=== PATIENT | male | born 1950 | race Caucasian/White ===

== ENCOUNTER 2018-02-08 06:12 | Emergency (ER) | payer MEDICARE, OTHER, SELFPAY ==
[2018-02-08 06:38] VITALS: BP 137/73; PULSE 73; RESP 18; TEMP 36.9; O2SAT 97; BMI 28.8
[2018-02-08 06:57] LABS: Bilirubin Urine UA 1+ (NEGATIVE); Glucose Urine UA NEGATIVE (Normal); Ketones Urine UA TRACE (NEGATIVE); Leukocyte Esterase Urine UA 1+ (NEGATIVE); Nitrite Urine UA POSITIVE (Negative); Occult Blood Urine UA 3+ (Negative); Protein Urine UA 2+ (Negative); Specific Gravity Urine UA 1.025 (1.000-1.035); Urobilinogen Urine UA 0.2 E.U./dL (0.2)
[2018-02-08 07:02] LABS: Appearance Urine UA CLOUDY; Color Urine UA Red
[2018-02-08 07:05] LABS: Bacteria Urine Moderate (10-30); Culture Indicated Urine Specimen Cultured; RBC Urine >100/HPF (0-5/HPF); Squamous Epithelial Cell Urine 1-5 /HPF; WBC Urine 30-100/HPF (0-5/HPF)
--- NOTE | 2018-02-08 07:07 | ED.MALEGU ---
HPI - Male Genitourinary General Chief complaint: Urogenital-Male Stated complaint: states he has uti Time Seen by Provider: 02/08/18 07:06 Source: patient Mode of arrival: ambulatory Limitations: no limitations History of Present Illness HPI Narrative: This is a 67-year-old male who comes to the emergency department with complaint of urinary frequency, urgency with small amounts of urine. He has noticed some blood in his urine. He not really having any abdominal or pelvic pain. He is not having any flank pain. He is having a little bit of back pain but he states that is a chronic change. He denies any fevers at this time. He has not had any nausea or vomiting. Has been slightly constipated. He has had similar symptoms in the past and been treated for UTI. He states he did not have persistence and they did not have to change antibiotics. He does not remember the antibiotic that he was given. Related Data Home Medications Medication Instructions Recorded Confirmed aspirin 81 mg PO QDAY #30 tab 12/04/15 atorvastatin [Lipitor] 40 mg PO HS #30 tab 12/04/15 clobetasol-emollient 1 param TOPICAL #30 gm 12/04/15 coQ10 (ubiquinol) 100 mg PO #0 12/04/15 fluocinonide 1 param TOPICAL #15 gm 12/04/15 fluocinonide 1 param TOPICAL #15 gm 12/04/15 latanoprost [Xalatan] 1 drp OU HS #2.5 ml 12/04/15 lisinopril 10 mg PO QDAY #30 tab 12/04/15 metoprolol tartrate 12.5 mg PO BID #0 tab 12/04/15 multivitamin [Multiple Vitamins] 1 tab PO QDAY #0 tab 12/04/15 tamsulosin [Flomax] 0.4 mg PO QDAY #0 cap 12/04/15 Previous Rx's Medication Instructions Recorded cephalexin [Keflex] 500 mg PO QID #28 cap 12/04/15 cephalexin 500 mg PO QID #40 cap 02/08/18 Allergies Allergy/AdvReac Type Severity Reaction Status Date / Time No Known Drug Allergies Allergy Verified 02/08/18 06:41 Review of Systems Review of Systems All systems reviewed & are unremarkable except as noted in HPI and below Constitutional Denies fever(s) (Low-grade fever) Gastrointestinal Gastrointestinal: Denies abdominal pain, Reports constipation, Denies diarrhea, Denies nausea and Denies vomiting Genitourinary Reports hematuria, Denies flank pain, Reports urinary frequency, Denies urinary incontinence and Reports urinary urgency Musculoskeletal Denies back pain PFSH Medical History Coronary artery disease (Acute) Dyslipidemia (Acute) Hypertension (Acute) Surgical History History of back surgery (Acute) Hx of CABG (Acute) Social History Smoking Status: Never smoker Exam Narrative Exam Narrative: GENERAL: Alert and oriented x three, well-nourished, well-appearing male in mild distress. HEENT: Head normocephalic, atraumatic, EOMI, pupils reactive, face symmetric, moist mucous membranes NECK: Supple, full range of motion CARDIOVASCULAR: Regular rate and rhythm without murmurs, rubs or gallops. RESPIRATORY: Breath sounds equal bilaterally, no wheezes rales or rhonchi. ABDOMEN: Soft, nontender. Normoactive bowel sounds all 4 quadrants. No guarding or rebound, rigidity, no mass : No CVA tenderness EXTREMITIES: Normal range of motion, no clubbing or edema. Neurovascularly intact NEUROLOGICAL: Cranial nerves II through XII grossly intact. Moving all extremities SKIN: Warm, dry, no petechiae, no rashes or lesions. Initial Vital Signs Initial Vital Signs: Vital Signs Temperature 98.5 F 02/08/18 06:38 Pulse Rate 73 02/08/18 06:38 Respiratory Rate 18 02/08/18 06:38 Blood Pressure 137/73 02/08/18 06:38 Pulse Oximetry 97 02/08/18 06:38 Course Orders Ordered: Discontinued Medications Cephalexin HCl (Keflex) 500 mg PO NOW ONE Stop: 02/08/18 07:20 Last Admin: 02/08/18 07:31 Dose: 500 mg Phenazopyridine HCl (Pyridium 100mg Prepack) 1 bottle MISC SEEINSTR ONE Stop: 02/08/18 07:20 Last Admin: 02/08/18 07:31 Dose: 1 bottle Vital Signs - 8 hr 02/08/18 06:38 Temperature 98.5 F Pulse Rate 73 Respiratory Rate 18 Blood Pressure 137/73 Pulse Oximetry 97 MDM - Male Genitourinary Lab Data Attestation: I reviewed the patient's lab results. Lab Results 02/08/18 Range/Units 06:30 Urine Color Red Urine Appearance Cloudy Urine pH 5.0 (4.5-8.0) Ur Specific [place] 1.025 (1.000-1.035) Urine Protein 2+ H (Negative) Urine Glucose (UA) Negative (Normal) g/dL Urine Ketones Trace H (NEGATIVE) Urine Occult Blood 3+ H (Negative) Urine Nitrate Positive (Negative) Urine Bilirubin 1+ H (NEGATIVE) Urine Ictotest Negative (Negative) Urine Urobilinogen 0.2 (0.2) E.U./dL Ur Leukocyte Esterase 1+ H (NEGATIVE) Urine RBC >100/hpf (0-5/HPF) Urine WBC 30-100/hpf H (0-5/HPF) Ur Squamous Epith Cells 1-5 /hpf Urine Bacteria Moderate (10-30) H (None) Ur Culture Indicated? Specimen cultured Micro UA Comment Not Reportable MDM Narrative Medical decision making narrative: Patient has clinical symptoms consistent with a urinary tract infection. He has some blood also leukocyte esterase and white blood cells. He is not having any flank pain consistent with kidney stone. Patient states he had similar symptoms in the past. Urine was sent for culture and started on Keflex q.i.d. Discharge Plan Departure Patient Disposition: Home Clinical Impression: UTI (urinary tract infection) Discharge Date/Time: 02/08/18 07:37 Interventions: ED Discharge Assessment Last Done: 02/08/18 07:37 Instructions: DI for Urinary Tract Infection (UTI) Activity Restrictions/Additional Instructions: Follow-up on Saturday if you are not having improvement in your symptoms. return to the ER if you're having persistent fevers, vomiting, increasing or new abdominal or back pain, inability to urinate, or other new or concerning symptoms. Take antibiotics until they are completely gone. Take Pyridium as needed for symptoms/bladder spasm. This medication will turn your urine bright orange. Drink plenty of fluids. Prescriptions: New cephalexin 500 mg capsule 500 mg PO QID Qty: 40 RF: 0 No Action atorvastatin [Lipitor] 40 MG tablet 40 mg PO HS Qty: 30 RF: 0 tamsulosin [Flomax] 0.4 MG capsule,extended release 24hr 0.4 mg PO QDAY Qty: 0 RF: 0 lisinopril 10 MG tablet 10 mg PO QDAY Qty: 30 RF: 0 metoprolol tartrate 25 MG tablet 12.5 mg PO BID Qty: 0 RF: 0 aspirin 81 MG tablet,delayed release (DR/EC) 81 mg PO QDAY Qty: 30 RF: 0 multivitamin [Multiple Vitamins] 1 EACH tablet 1 tab PO QDAY Qty: 0 RF: 0 latanoprost [Xalatan] 0.005 % drops 1 drp OU HS Qty: 2.5 RF: 0 fluocinonide 0.05 % cream 1 param Topical Qty: 15 RF: 0 clobetasol-emollient 0.05 % cream 1 param Topical Qty: 30 RF: 0 fluocinonide 0.05 % cream 1 param Topical Qty: 15 RF: 0 coQ10 (ubiquinol) 100 MG capsule 100 mg PO Qty: 0 RF: 0 cephalexin [Keflex] 500 MG capsule 500 mg PO QID Qty: 28 RF: 0
[2018-02-08 07:19] LABS: Ictotest Urine Negative (Negative)
[2018-02-08] MEDS: cephALEXin 250 MG CAPSULE 500 MG PO (07:31)
[2018-02-08] MEDS: PHENAZOPYRIDINE 100 MG PREPACK 1 BOTTLE MISC (07:31)
[2018-02-08 07:37] VITALS: BP 113/69; PULSE 79; RESP 14; O2SAT 97
== END 2018-02-08 07:37 | disposition home or self-care (01) ==
PROVIDERS: Emergency Medicine; Emergency Provider Emergency Medicine
DX: N39.0 Urinary tract infection, site not specified (principal)
CPT/HCPCS: 51798; 81001; 87086; 99283

== ENCOUNTER → 2019-01-16 06:15 | Outpatient (CLI) | payer MEDICARE, OTHER, SELFPAY ==
--- NOTE | 2019-01-16 08:18 | DI.CT.S_ITS ---
PROCEDURE: CT SINUS SCREEN WO CON INDICATIONS: Anosmia TECHNIQUE: Noncontrast 3.0 mm axial images acquired from the frontal sinuses to the mid-sella, with coronal and sagittal reformats. For radiation dose reduction, the following was used: automated exposure control, adjustment of mA and/or kV according to patient size. COMPARISON: None. FINDINGS: Image quality: Excellent. Maxillary Sinuses: No bony remodeling or destruction. Sinuses are clear. Ethmoid Air Cells: No bony remodeling or destruction. Sinuses are clear. Sphenoid Sinuses: No bony remodeling or destruction. Sinuses are clear. Frontal Sinuses: No bony remodeling or destruction. Sinuses are clear. Ostiomeatal Complexes: Ostiomeatal complexes are patent. No Harley cells. Miscellaneous: Visualized intra-orbital contents are normal. No karen bullosa or paradoxical turbinate curvature. There is mild leftward nasal septal deviation. IMPRESSION: 1. No significant sinusitis. 2. Mild leftward nasal septal deviation. Dictated by: Asael Clemons M.D. on 01/16/2019 at 8:17 Approved by: Asael Clemons M.D. on 01/16/2019 at 8:20
== END ==
PROVIDERS: Visit Provider Otolaryngology
DX: J32.8 Other chronic sinusitis (principal); R43.0 Anosmia; J31.0 Chronic rhinitis; J34.2 Deviated nasal septum; R43.8 Other disturbances of smell and taste; J34.89 Other specified disorders of nose and nasal sinuses
CPT/HCPCS: 70486

== ENCOUNTER 2020-07-17 11:31 | Emergency (ER) | payer MEDICARE, OTHER, SELFPAY ==
[2020-07-17] VITALS (11 sets, daily range): BP systolic 148–183; BP diastolic 74–94; PULSE 55–63; RESP 16–21; TEMP 36.1; O2SAT 94–98; BMI 29.7
--- NOTE | 2020-07-17 11:36 | DI.RAD.S_ITS ---
PROCEDURE: XR CHEST 1V INDICATIONS: chest pain TECHNIQUE: One view of the chest was acquired. COMPARISON: , , CHEST 2 VIEW, 08/28/2012, 9:16. FINDINGS: Surgical changes and devices: Postsurgical changes of CABG with sternotomy. Lungs and pleura: Lungs are clear. No pleural effusions or pneumothorax. Mediastinum: Mediastinal contours appear normal. Heart size is normal. Bones and chest wall: No suspicious bony lesions. Overlying soft tissues appear unremarkable. IMPRESSION: No acute cardiopulmonary abnormality. Dictated by: Hakeem Pearl M.D. on 07/17/2020 at 10:57 Approved by: Hakeem Pearl M.D. on 07/17/2020 at 10:58
[2020-07-17 11:50] LABS: Add Manual Diff / Slide Review NO; Basophils Absolute Auto 0 /uL (0-100); Basophils Percent Auto 0.5 % (0-2); Eosinophils Absolute Auto 100 /uL (0-450); Eosinophils Percent Auto 0.9 % (2-4); Hematocrit 50.3 % (41-53); Lymphocytes Absolute Auto 2500 /uL (1100-4500); Lymphocytes Percent Auto 33.8 % (25-40); Mean Corpuscular HGB Conc 33.9 % (30-36); Mean Corpuscular Hemoglobin 30.7 PG (26-34); Mean Corpuscular Volume 90.5 fL (80-100); Monocytes Absolute Auto 500 /uL (0-900); Neutrophils Absolute Auto 4200 /uL (1500-7000); Neutrophils Percent Auto 57.8 % (50-75); Platelet Count 155 X10^3/uL (150-400); Red Blood Cell Count 5.55 X10^6/uL (4.5-5.9); Red Cell Distribution Width 12.9 % (11.6-14.8); White Blood Cell Count 7.3 X10^3/uL (4.5-11.0)
[2020-07-17 11:59] LABS: INR 1.1 (0.9-1.3); Prothrombin Time 12.4 SECONDS (10.1-12.7)
[2020-07-17 12:01] LABS: PTT Partial Thromboplastin Tim 33 SECONDS (26.4-36.2)
[2020-07-17 12:03] LABS: Alanine Aminotransferase 33 IU/L (<50); Albumin 4.5 g/dL (3.5-5.0); Albumin Globulin Ratio 1.6 (1.0-2.8); Alkaline Phosphatase 63 U/L (38-126); Aspartate Aminotransferase 31 IU/L (17-59); BUN Creatinine Ratio 19.1 (6-22); Bilirubin Total 0.6 mg/dL (0.2-1.3); Blood Urea Nitrogen 18 mg/dL (9-20); Calcium 9.8 mg/dL (8.4-10.2); Carbon Dioxide 25 mmol/L (22-32); Chloride 106 mmol/L (98-107); Creatine Kinase 121 U/L (55-170); Estimated Glomerular Filt Rate > 60.0 mL/min (>60); Globulin 2.8 g/dL (1.7-4.1); Glucose 112 mg/dL (80-110); HEMOLYSIS 16 (0-50); Lipase 96 U/L (23-300); Potassium 4.6 mmol/L (3.4-5.1); Sodium 140 mmol/L (137-145); Total Protein 7.3 g/dL (6.3-8.2)
[2020-07-17 12:15] LABS: Troponin I < 0.012 ng/mL (0.01-0.034)
[2020-07-17 12:18] LABS: CKMB % Relative Index 1.7 % (1.5-5.0); Creatine Kinase MB 2.05 ng/mL (<2.37)
--- NOTE | 2020-07-17 12:18 | ED_ITS ---
HPI - Chest Pain General Chief Complaint: Chest Pain Stated Complaint: chest pain Time Seen by Provider: 07/17/20 11:39 Source: patient Mode of arrival: Ambulatory Limitations: no limitations History of Present Illness HPI narrative: Patient is a 70-year-old male history of coronary artery disease CABG 3 vessel is presenting with ongoing chest discomfort. His he said he has actually had issues for about 2 months. 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 Burrell at [facility] he said he had a sinus arrhythmia and he was started on Imdur. Since then he has continued to have chest discomfort. He notices full walking up hill he gets chest discomfort that radiates down his left arm and into his left shoulder. It does not stop him. He also notices it after he eats and has noticed it today after crossword puzzle. My he currently has no chest discomfort. He denies shortness of breath with exertion. He was able to ride his bike about 10 miles last week without any issues. He is scheduled for heart catheterization 11 days. MD complaint: chest pain Onset (ago): week(s) Duration: intermittent Pain location: left chest Severity: mild Related Data Home Medications Medication Instructions Recorded Confirmed aspirin 81 mg PO QDAY #30 tab 12/04/15 atorvastatin [Lipitor] 40 mg PO HS #30 tab 12/04/15 clobetasol-emollient 1 param TOPICAL #30 gm 12/04/15 coQ10 (ubiquinol) 100 mg PO #0 12/04/15 fluocinonide 1 param TOPICAL #15 gm 12/04/15 fluocinonide 1 param TOPICAL #15 gm 12/04/15 latanoprost [Xalatan] 1 drp OU HS #2.5 ml 12/04/15 lisinopril 10 mg PO QDAY #30 tab 12/04/15 metoprolol tartrate 12.5 mg PO BID #0 tab 12/04/15 multivitamin [Multiple Vitamins] 1 tab PO QDAY #0 tab 12/04/15 tamsulosin [Flomax] 0.4 mg PO QDAY #0 cap 12/04/15 Previous Rx's Medication Instructions Recorded cephalexin [Keflex] 500 mg PO QID #28 cap 12/04/15 cephalexin 500 mg PO QID #40 cap 02/08/18 Allergies Allergy/AdvReac Type Severity Reaction Status Date / Time No Known Drug Allergies Allergy Verified 02/08/18 06:41 Review of Systems Review of Systems Narrative: GENERAL: Denies chills, fatigue, malaise, fever, sweats, travel HEENT: Denies sinus pain, ear pain, sore throat, difficulty swallowing, neck pain RESPIRATORY: Denies dyspnea, cough, wheezing, hemoptysis, sputum. CARDIOVASCULAR: See HPI, denies dizziness lightheadedness GASTROINTESTINAL: Denies nausea, vomiting, abdominal pain, diarrhea, constipation, melena. : Denies dysuria, frequency, incontinence, hematuria, urinary retention, flank pain. MUSCULOSKELETAL: Denies weakness, joint pain, or bony pain SKIN: No rash, no erythema, no pruritus NEUROLOGIC: Denies weakness, dizziness, headache, numbness, change in speech, confusion PSYCHIATRIC: No concerning psychosocial issues. 12 point review of systems is negative except for those stated above and HPI Patient History Medical History Coronary artery disease Dyslipidemia Hypertension Surgical History History of back surgery Hx of CABG Social History Smoking Status: Never smoker Smoking Status: Never smoker alcohol intake frequency: a few times a week Substance Use Type: does not use Exam Initial Vital Signs Initial Vital Signs: Vital Signs Temperature 96.9 F L 07/17/20 11:37 Pulse Rate 61 07/17/20 11:37 Respiratory Rate 16 07/17/20 11:37 Blood Pressure 172/92 H 07/17/20 11:37 Pulse Oximetry 97 07/17/20 11:37 GENERAL: Alert pleasant 70-year-old male and in [no acute] distress. HEENT: Head atraumatic,EOMI, pupils reactive, face symmetric, [moist] mucous membranes CARDIOVASCULAR: Regular rate and rhythm without murmurs, rubs or gallops. RESPIRATORY: Breath sounds equal bilaterally, no wheezes rales or rhonchi. ABDOMEN: Soft, nontender. Normoactive bowel sounds all 4 quadrants. No guarding or rebound. EXTREMITIES: Normal range of motion, no clubbing or edema. Neurovascularly intact NEUROLOGICAL: Alert and oriented x4.Normal gait and speech. SKIN: Warm, dry, no laceration, no petechiae, no rashes or lesions. Course Orders Ordered: ED Orders 07/17/20 11:36 XR chest 1V Stat EKG-12 Lead Stat 07/17/20 11:43 Complete Blood Count AUTO DIFF Stat Comprehensive Metabolic Panel Stat Lipase Stat Partial Thromboplastin Time Stat Prothrombin Time INR Stat Troponin & CK Cardiac Panel Stat 07/17/20 13:45 COVID19 -Nasal swab/Pre-Proc Stat Vital Signs Vital signs: Vital Signs - 8 hr 07/17/20 11:37 07/17/20 11:43 07/17/20 11:44 Temperature 96.9 F L Pulse Rate 61 57 L 58 L Respiratory Rate 16 18 21 Blood Pressure 172/92 H 153/74 H Pulse Oximetry 97 96 96 07/17/20 12:00 07/17/20 12:28 07/17/20 12:29 Temperature Pulse Rate 59 L 63 58 L Respiratory Rate 21 Blood Pressure 183/94 H 155/78 H Pulse Oximetry 98 96 96 07/17/20 12:30 07/17/20 13:00 07/17/20 13:30 Temperature Pulse Rate 60 58 L 57 L Respiratory Rate Blood Pressure 148/86 H 156/90 H Pulse Oximetry 95 95 94 07/17/20 14:00 07/17/20 14:30 Temperature Pulse Rate 55 L 62 Respiratory Rate Blood Pressure 156/91 H 159/84 H Pulse Oximetry 97 96 MDM - Chest Pain Lab Data Attestation: I reviewed the patient's lab results. Result diagrams: 07/17/20 11:43 07/17/20 11:43 Labs: Lab Results 07/17/20 07/17/20 07/17/20 Range/Units 11:43 11:43 11:43 WBC 7.3 (4.5-11.0) X10^3/uL RBC 5.55 (4.5-5.9) X10^6/uL Hgb 17.0 (13.5-17.5) g/dL Hct 50.3 (41-53) % MCV 90.5 (80-100) fL MCH 30.7 (26-34) PG MCHC 33.9 (30-36) % RDW 12.9 (11.6-14.8) % Plt Count 155 (150-400) X10^3/uL Neut % (Auto) 57.8 (50-75) % Lymph % (Auto) 33.8 (25-40) % [place] % (Auto) 7.0 (3-14) % Eos % (Auto) 0.9 L (2-4) % Baso % (Auto) 0.5 (0-2) % Neut # (Auto) 4200 (5664-9730) /uL Lymph # (Auto) 2500 (2763-0453) /uL [place] # (Auto) 500 (0-900) /uL Eos # (Auto) 100 (0-450) /uL Baso # (Auto) 0 (0-100) /uL PT 12.4 (10.1-12.7) SECONDS INR 1.1 (0.9-1.3) APTT 33 (26.4-36.2) SECONDS Sodium 140 (137-145) mmol/L Potassium 4.6 (3.4-5.1) mmol/L Chloride 106 (98-107) mmol/L Carbon Dioxide 25 (22-32) mmol/L BUN 18 (9-20) mg/dL Creatinine 0.94 (0.66-1.25) mg/dL Estimated GFR > 60.0 (>60) mL/min BUN/Creatinine Ratio 19.1 (6-22) Glucose 112 H (80-110) mg/dL Calcium 9.8 (8.4-10.2) mg/dL Total Bilirubin 0.6 (0.2-1.3) mg/dL AST 31 (17-59) IU/L ALT 33 (<50) IU/L Alkaline Phosphatase 63 (38-126) U/L Total Creatine Kinase 121 (55-170) U/L CK-MB (CK-2) 2.05 (<2.37) ng/mL CK-MB (CK-2) Rel Index 1.7 (1.5-5.0) % Troponin I < 0.012 (0.01-0.034) ng/mL Total Protein 7.3 (6.3-8.2) g/dL Albumin 4.5 (3.5-5.0) g/dL Globulin 2.8 (1.7-4.1) g/dL Albumin/Globulin Ratio 1.6 (1.0-2.8) Lipase 96 (23-300) U/L SARS-CoV-2 (PCR) (Negative) 07/17/20 Range/Units 13:45 WBC (4.5-11.0) X10^3/uL RBC (4.5-5.9) X10^6/uL Hgb (13.5-17.5) g/dL Hct (41-53) % MCV (80-100) fL MCH (26-34) PG MCHC (30-36) % RDW (11.6-14.8) % Plt Count (150-400) X10^3/uL Neut % (Auto) (50-75) % Lymph % (Auto) (25-40) % [place] % (Auto) (3-14) % Eos % (Auto) (2-4) % Baso % (Auto) (0-2) % Neut # (Auto) (1615-3217) /uL Lymph # (Auto) (3668-5385) /uL [place] # (Auto) (0-900) /uL Eos # (Auto) (0-450) /uL Baso # (Auto) (0-100) /uL PT (10.1-12.7) SECONDS INR (0.9-1.3) APTT (26.4-36.2) SECONDS Sodium (137-145) mmol/L Potassium (3.4-5.1) mmol/L Chloride (98-107) mmol/L Carbon Dioxide (22-32) mmol/L BUN (9-20) mg/dL Creatinine (0.66-1.25) mg/dL Estimated GFR (>60) mL/min BUN/Creatinine Ratio (6-22) Glucose (80-110) mg/dL Calcium (8.4-10.2) mg/dL Total Bilirubin (0.2-1.3) mg/dL AST (17-59) IU/L ALT (<50) IU/L Alkaline Phosphatase (38-126) U/L Total Creatine Kinase (55-170) U/L CK-MB (CK-2) (<2.37) ng/mL CK-MB (CK-2) Rel Index (1.5-5.0) % Troponin I (0.01-0.034) ng/mL Total Protein (6.3-8.2) g/dL Albumin (3.5-5.0) g/dL Globulin (1.7-4.1) g/dL Albumin/Globulin Ratio (1.0-2.8) Lipase (23-300) U/L SARS-CoV-2 (PCR) Negative (Negative) Imaging Data Chest x-ray: Radiologist's Impression: PROCEDURE: XR CHEST 1V INDICATIONS: chest pain TECHNIQUE: One view of the chest was acquired. COMPARISON: [facility], CHEST 2 VIEW, 08/28/2012, 9:16. FINDINGS: Surgical changes and devices: Postsurgical changes of CABG with sternotomy. Lungs and pleura: Lungs are clear. No pleural effusions or pneumothorax. Mediastinum: Mediastinal contours appear normal. Heart size is normal. Bones and chest wall: No suspicious bony lesions. Overlying soft tissues appear unremarkable. IMPRESSION: No acute cardiopulmonary abnormality. Dictated by: Hakeem Pearl M.D. on 07/17/2020 at 10:57 ECG Data Attestation: I personally reviewed and interpreted this ECG as follows: Prior ECG tracings: not available for review Interpretation: Sinus rhythm with PAC noted no ST changes no T-wave inversions no Q-waves MDM Narrative Medical decision making narrative: Patient is not currently having any chest discomfort. But is obviously having escalating chest pain with exertion and angina like symptoms. Symptoms are also now coming at rest. Patient has remained chest pain-free in the emergency department 1300 Dr. Lowry cardiology at [facility] has been updated patient's symptoms test results agrees that patient's heart catheterization needs to be moved up sooner recommends transferring admitting to hospitalist [id number] Dr[address] Reynolds, hospitalist updated patient's symptoms test results agrees and with transfer and happily accepted Discharge Plan Departure Patient Disposition: [facility] Clinical Impression: Unstable angina pectoris Prescriptions: No Action atorvastatin [Lipitor] 40 MG tablet 40 mg PO HS Qty: 30 RF: 0 tamsulosin [Flomax] 0.4 MG capsule,extended release 24hr 0.4 mg PO QDAY Qty: 0 RF: 0 lisinopril 10 MG tablet 10 mg PO QDAY Qty: 30 RF: 0 metoprolol tartrate 25 MG tablet 12.5 mg PO BID Qty: 0 RF: 0 aspirin 81 MG tablet,delayed release (DR/EC) 81 mg PO QDAY Qty: 30 RF: 0 multivitamin [Multiple Vitamins] 1 EACH tablet 1 tab PO QDAY Qty: 0 RF: 0 latanoprost [Xalatan] 0.005 % drops 1 drp OU HS Qty: 2.5 RF: 0 fluocinonide 0.05 % cream 1 param Topical Qty: 15 RF: 0 clobetasol-emollient 0.05 % cream 1 param Topical Qty: 30 RF: 0 fluocinonide 0.05 % cream 1 param Topical Qty: 15 RF: 0 coQ10 (ubiquinol) 100 MG capsule 100 mg PO Qty: 0 RF: 0 cephalexin [Keflex] 500 MG capsule 500 mg PO QID Qty: 28 RF: 0 cephalexin 500 mg capsule 500 mg PO QID Qty: 40 RF: 0
[2020-07-17 14:17] LABS: COVID19 -Nasal RAPID Negative (Negative)
== END 2020-07-17 15:12 | disposition short-term general hospital (02) ==
PROVIDERS: Emergency Provider Emergency Medicine
DX: I20.0 Unstable angina (principal); I49.1 Atrial premature depolarization; Z86.79 Personal history of other diseases of the circulatory system
CPT/HCPCS: 36415; 71045; 80053; 82550; 82553; 83690; 84484; 85025; 85610; 85730; 87635; 93005; 99284; C9803

== ENCOUNTER 2021-01-18 08:30 | Outpatient (RCR) | payer MEDICARE, OTHER, SELFPAY | END 2021-01-18 10:30 | LOC: CAR 08:30 | PROVIDERS: PCP Physician Assistant Medical; Referring Provider Internal Medicine Cardiovascular Disease; Visit Provider Internal Medicine Cardiovascular Disease | DX: Z95.5 Presence of coronary angioplasty implant and graft (principal) | CPT/HCPCS: 93798 ==

== ENCOUNTER 2021-12-24 01:47 | Emergency (ER) | payer MEDICARE, OTHER, SELFPAY ==
[2021-12-24 01:59] VITALS: BP 143/90; PULSE 74; RESP 18; TEMP 36.8; O2SAT 98; BMI 26.2
--- NOTE | 2021-12-24 02:03 | DI.RAD.S_ITS ---
PROCEDURE: XR ANKLE RT MIN 3V INDICATIONS: R anterior and ankle pain TECHNIQUE: 3 views of the ankle were acquired. COMPARISON: None. FINDINGS: Bones: There is mild widening of the lateral mortise joint with tilting of the talus. No suspicious bony lesions. Small posterior calcaneal enthesophyte. Soft tissues: Mild soft tissue edema is seen surrounding the ankle. Small ossification is seen along the course of the plantar fascia. IMPRESSION: Mild widening of the lateral mortise joint due to talar tilting. No acute osseous fracture. If the symptoms persist, consider cross sectional imaging such as MRI or CT for further assessment. There is no significant discrepancy when compared to the overnight preliminary report. Dictated by: Antonio Eastman M.D. on 12/24/2021 at 7:00 Approved by: Antonio Eastman M.D. on 12/24/2021 at 7:10
--- NOTE | 2021-12-24 02:03 | ED.EXTPRO ---
HPI - Extremity Problem General Chief complaint: Extremity Problem,Nontraumatic Stated complaint: RT. FOOT PAIN Time Seen by Provider: 12/24/21 01:58 Source: patient Mode of arrival: Wheelchair Limitations: no limitations History of Present Illness HPI Narrative: Patient is a 71-year-old male who is here for evaluation of right ankle/foot discomfort. He did state that the symptoms started last evening after dinner. There was not 1 specific injury. He has had symptoms similar to this in the past. He states that it very often occurs when he is hiking or after he is hiking. He is never had a history of gout. No prior surgeries. No other joint pain. Does have swelling. Is very uncomfortable to walk on his ankle. Related Data Home Medications Medication Instructions Recorded Confirmed aspirin 81 mg tablet,delayed 81 mg PO QDAY #30 tabs 12/04/15 release atorvastatin 40 mg tablet (Lipitor) 40 mg PO HS #30 tabs 12/04/15 clobetasol-emollient 0.05 % 1 param topical ##30 12/04/15 topical cream coQ10 (ubiquinol) 100 mg capsule 100 mg PO ##0 12/04/15 fluocinonide 0.05 % topical cream 1 param topical ##15 12/04/15 fluocinonide 0.05 % topical cream 1 param topical ##15 16 latanoprost 0.005 % eye drops 1 drp OU HS #2.5 mL 12/04/15 (Xalatan) lisinopril 10 mg tablet 10 mg PO QDAY #30 tabs 12/04/15 metoprolol tartrate 25 mg tablet 12.5 mg PO BID #0 tabs 12/04/15 multivitamin (Multiple Vitamins 1 tab PO QDAY #0 tabs 12/04/15 tablet) tamsulosin 0.4 mg capsule (Flomax) 0.4 mg PO QDAY #0 caps 12/04/15 Previous Rx's Medication Instructions Recorded cephalexin 500 mg capsule (Keflex) 500 mg PO QID #28 caps 12/04/15 cephalexin 500 mg capsule 500 mg PO QID #40 caps 02/08/18 Allergies Allergy/AdvReac Type Severity Reaction Status Date / Time No Known Drug Allergies Allergy Verified 02/08/18 06:41 Review of Systems Constitutional Constitutional: Denies fever(s) Musculoskeletal Musculoskeletal: Reports system reviewed and no additional complaints, except as documented Integumentary/Breasts Skin/Breast: Reports system reviewed and no additional complaints, except as documented Neurologic Neurologic: Reports system reviewed and no additional complaints, except as documented Hematologic/Lymphatic On Anticoagulants: No Patient History Medical History Coronary artery disease Dyslipidemia Hypertension Surgical History History of back surgery Hx of CABG Social History Smoking Status: Never smoker Smoking Status: Never smoker alcohol intake frequency: a few times a week Substance Use Type: does not use Exam Initial Vital Signs Initial Vital Signs: Vital Signs Temperature 98.2 F 12/24/21 01:59 Pulse Rate 74 12/24/21 01:59 Respiratory Rate 18 12/24/21 01:59 Blood Pressure 143/90 H 12/24/21 01:59 Pulse Oximetry 98 12/24/21 01:59 Oxygen Delivery Method 12/24/21 01:59 Cardio Pulses: dorsalis pedis present on the right Skin General: no rashes or lesions noted Neuro Sensory Exam: no sensory deficits noted Extrem Other: Patient does have swelling specifically along the lateral malleolus. There no redness over the area. Is tender along the anterior portion of the tibiotalar joint and also along the medial and lateral malleoli. Rest of his foot is unremarkable. Calf is unremarkable. Course Orders Ordered: ED Orders 12/24/21 02:03 XR ankle RT min 3V Stat 12/24/21 02:19 Basic Metabolic Panel Stat Complete Blood Count AUTO DIFF Stat Uric Acid Stat Discontinued Medications Hydrocodone Bitart/Acetaminophen (Hydrocodone/Acet 5/325 Tablet) 1 tab PO NOW ONE Stop: 12/24/21 03:04 Last Admin: 12/24/21 03:07 Dose: 1 tab Documented By: AP Hydrocodone Bitart/Acetaminophen (Hydrocodone/Acet 5/325 Prepack) 1 bottle MISC SEEINSTR ONE Stop: 12/24/21 04:29 Vital Signs Vital signs: Vital Signs - 8 hr 12/24/21 01:59 12/24/21 02:31 12/24/21 03:00 Temperature 98.2 F Pulse Rate 74 77 88 Respiratory Rate 18 Blood Pressure 143/90 H 141/88 H Pulse Oximetry 98 99 97 Oxygen Delivery Method Room Air 12/24/21 03:30 12/24/21 04:00 Temperature Pulse Rate 81 80 Respiratory Rate Blood Pressure 131/63 Pulse Oximetry 96 96 Oxygen Delivery Method MDM - Extremity (Nontraumatic) Lab Data Result diagrams: 12/24/21 02:19 12/24/21 02:19 Labs: Lab Results 12/24/21 12/24/21 Range/Units 02:19 02:19 WBC 11.6 H (4.5-11.0) X10^3/uL RBC 4.78 (4.5-5.9) X10^6/uL Hgb 15.0 (13.5-17.5) g/dL Hct 43.6 (41-53) % MCV 91.1 (80-100) fL MCH 31.3 (26-34) PG MCHC 34.4 (30-36) % RDW 12.9 (11.6-14.8) % Plt Count 169 (150-400) X10^3/uL Neut % (Auto) 81.2 H (50-75) % Lymph % (Auto) 9.6 L (25-40) % [place] % (Auto) 8.0 (3-14) % Eos % (Auto) 0.8 L (2-4) % Baso % (Auto) 0.4 (0-2) % Neut # (Auto) 9400 H (9451-1403) /uL Lymph # (Auto) 1100 (2163-9712) /uL [place] # (Auto) 900 (0-900) /uL Eos # (Auto) 100 (0-450) /uL Baso # (Auto) 0 (0-100) /uL Sodium 137 (137-145) mmol/L Potassium 4.4 (3.4-5.1) mmol/L Chloride 99 (98-107) mmol/L Carbon Dioxide 27 (22-32) mmol/L BUN 21 H (9-20) mg/dL Creatinine 0.83 (0.66-1.25) mg/dL Estimated GFR > 60 (>60) mL/min BUN/Creatinine Ratio 25.3 H (6-22) Glucose 150 H (80-110) mg/dL Uric Acid 7.0 (3.5-8.5) mg/dL Calcium 8.8 (8.4-10.2) mg/dL Imaging Data Extremity x-ray #1: My Impression: No fractures, no dislocations MDM Narrative Medical decision making narrative: Patient did not have specific trauma. There is swelling but low suspicion for gout/infection. X-ray show no acute pathology. No fractures. No dislocations. No calf tenderness. Will send home with instructions for symptom treatment. Patient has crutches at home that he can use as needed. He was given return precautions. He expressed understanding and agreement. Discharge Plan Departure Patient Disposition: Home Clinical Impression: Ankle pain, right, Arthritis Instructions: How To Perform RICE (Rest, Ice, Compress, Elevate), DI for Arthritis Activity Restrictions/Additional Instructions: There were no obvious fractures noted on the x-rays so you can walk on your right ankle as tolerated. I recommend that you keep your ankle elevated keep ice over the area. You can use crutches as needed. Contact your primary doctor for follow-up. Return to the emergency department for any new or worsening symptoms. Prescriptions: No Action atorvastatin [Lipitor] 40 MG tablet 40 mg PO HS Qty: 30 tamsulosin [Flomax] 0.4 MG capsule,extended release 24hr 0.4 mg PO QDAY Qty: 0 lisinopril 10 MG tablet 10 mg PO QDAY Qty: 30 metoprolol tartrate 25 MG tablet 12.5 mg PO BID Qty: 0 aspirin 81 MG tablet,delayed release (DR/EC) 81 mg PO QDAY Qty: 30 multivitamin [Multiple Vitamins] 1 EACH tablet 1 tab PO QDAY Qty: 0 latanoprost [Xalatan] 0.005 % drops 1 drp OU HS Qty: 2.5 fluocinonide 0.05 % cream 1 param Topical Qty: 15 clobetasol-emollient 0.05 % cream 1 param Topical Qty: 30 fluocinonide 0.05 % cream 1 param Topical Qty: 15 coQ10 (ubiquinol) 100 MG capsule 100 mg PO Qty: 0 cephalexin [Keflex] 500 MG capsule 500 mg PO QID Qty: 28 0RF cephalexin 500 mg capsule 500 mg PO QID Qty: 40 0RF Referrals: Abby Bocanegra PA-C [Primary Care Provider] -
[2021-12-24 02:31] VITALS: PULSE 77; O2SAT 99
[2021-12-24 02:39] LABS: BUN Creatinine Ratio 25.3 (6-22); Blood Urea Nitrogen 21 mg/dL (9-20); Calcium 8.8 mg/dL (8.4-10.2); Carbon Dioxide 27 mmol/L (22-32); Chloride 99 mmol/L (98-107); Estimated Glomerular Filt Rate > 60 mL/min (>60); Glucose 150 mg/dL (80-110); HEMOLYSIS 26 (0-50); Potassium 4.4 mmol/L (3.4-5.1); Sodium 137 mmol/L (137-145)
[2021-12-24 02:43] LABS: Add Manual Diff / Slide Review NO; Basophils Absolute Auto 0 /uL (0-100); Basophils Percent Auto 0.4 % (0-2); Eosinophils Absolute Auto 100 /uL (0-450); Eosinophils Percent Auto 0.8 % (2-4); Hematocrit 43.6 % (41-53); Lymphocytes Absolute Auto 1100 /uL (1100-4500); Lymphocytes Percent Auto 9.6 % (25-40); Mean Corpuscular HGB Conc 34.4 % (30-36); Mean Corpuscular Hemoglobin 31.3 PG (26-34); Mean Corpuscular Volume 91.1 fL (80-100); Monocytes Absolute Auto 900 /uL (0-900); Neutrophils Absolute Auto 9400 /uL (1500-7000); Neutrophils Percent Auto 81.2 % (50-75); Platelet Count 169 X10^3/uL (150-400); Red Blood Cell Count 4.78 X10^6/uL (4.5-5.9); Red Cell Distribution Width 12.9 % (11.6-14.8); White Blood Cell Count 11.6 X10^3/uL (4.5-11.0)
[2021-12-24 03:00] VITALS: BP 141/88; PULSE 88; O2SAT 97
[2021-12-24] MEDS: HYDROCODONE/ACET 5/325 TABLET 1 TAB PO (03:07)
[2021-12-24 03:30] VITALS: PULSE 81; O2SAT 96
[2021-12-24 04:00] VITALS: BP 131/63; PULSE 80; O2SAT 96
[2021-12-24] MEDS: OXYCODONE/APAP 5/325 PREPACK 1 BOTTLE MISC (04:49)
--- NOTE | 2021-12-24 05:11 | PC.NURSE ---
He stated his ankle pain was better after given vicodin.
== END 2021-12-24 04:50 | disposition home or self-care (01) ==
PROVIDERS: Emergency Provider Emergency Medicine; PCP Physician Assistant Medical
DX: M25.571 Pain in right ankle and joints of right foot (principal); M19.071 Primary osteoarthritis, right ankle and foot
CPT/HCPCS: 36415; 73610; 80048; 84550; 85025; 99283

== ENCOUNTER 2021-12-24 16:36 | Inpatient (IN) | payer MEDICARE, OTHER, SELFPAY ==
[2021-12-24] VITALS (10 sets, daily range): BP systolic 105–128; BP diastolic 59–68; PULSE 69–96; RESP 12–19; TEMP 36.6–37.5; O2SAT 94–98; BMI 26.2; BMI 26.9
--- NOTE | 2021-12-24 17:05 | DI.US.S_ITS ---
PROCEDURE: US PERIPH VENOUS LOW EXTREM RT INDICATIONS: PAIN, EDEMA; 11 DAYS POST HERNIA REPAIR TECHNIQUE: Real-time imaging, as well as color and pulse Doppler interrogation, were performed of the lower extremity deep veins from the inguinal ligament to the popliteal fossa. COMPARISON: None. FINDINGS: The common femoral, femoral and popliteal veins are normally compressible, and free of intraluminal thrombus. Color and pulse Doppler demonstrate normal phasic intraluminal flow. There is normal augmentation response to distal compression maneuver. IMPRESSION: Negative for deep venous thrombosis of the right lower extremity. Dictated by: Kayden Bell M.D. on 12/24/2021 at 18:34 Approved by: Kayden Bell M.D. on 12/24/2021 at 18:35
[2021-12-24 18:26] LABS: Add Manual Diff / Slide Review NO; Basophils Absolute Auto 0 /uL (0-100); Basophils Percent Auto 0.3 % (0-2); Eosinophils Absolute Auto 0 /uL (0-450); Hemoglobin 14.7 g/dL (13.5-17.5); Lymphocytes Absolute Auto 1100 /uL (1100-4500); Lymphocytes Percent Auto 7.1 % (25-40); Mean Corpuscular HGB Conc 34.1 % (30-36); Mean Corpuscular Hemoglobin 31.2 PG (26-34); Mean Corpuscular Volume 91.6 fL (80-100); Monocytes Absolute Auto 1900 /uL (0-900); Monocytes Percent Auto 12.8 % (3-14); Neutrophils Absolute Auto 12100 /uL (1500-7000); Neutrophils Percent Auto 79.8 % (50-75); Platelet Count 163 X10^3/uL (150-400); Red Cell Distribution Width 12.8 % (11.6-14.8); White Blood Cell Count 15.1 X10^3/uL (4.5-11.0)
[2021-12-24 18:38] LABS: BUN Creatinine Ratio 18.7 (6-22); Blood Urea Nitrogen 17 mg/dL (9-20); Calcium 8.9 mg/dL (8.4-10.2); Carbon Dioxide 28 mmol/L (22-32); Chloride 96 mmol/L (98-107); Estimated Glomerular Filt Rate > 60 mL/min (>60); Glucose 123 mg/dL (80-110); HEMOLYSIS < 15 (0-50); Potassium 4.5 mmol/L (3.4-5.1); Sodium 134 mmol/L (137-145)
--- NOTE | 2021-12-24 19:03 | ED.EXTPRO ---
HPI - Extremity Problem General Chief complaint: Extremity Problem,Nontraumatic Stated complaint: DVT R/O per post OP surgeon Time Seen by Provider: 12/24/21 18:56 Source: patient Mode of arrival: Family Vehicle Limitations: no limitations History of Present Illness HPI Narrative: Patient is a 71-year-old male who I evaluated in the emergency department last evening for swelling and pain to his right ankle. He had an x-ray and lab work which were unremarkable. Discharged home with instructions for conservative measures. He returns to the emergency department today because the pain has continued. The swelling has worsened. The skin over the area is now red. No fevers. Related Data Home Medications Medication Instructions Recorded Confirmed aspirin 81 mg tablet,delayed 81 mg PO QDAY #30 tabs 12/04/15 12/24/21 release atorvastatin 40 mg tablet (Lipitor) 40 mg PO HS #30 tabs 12/04/15 12/24/21 clobetasol-emollient 0.05 % 1 param topical PRN Dry Skin ##30 12/04/15 topical cream coQ10 (ubiquinol) 100 mg capsule 100 mg PO BEDTIME ##0 12/04/15 12/24/21 latanoprost 0.005 % eye drops 1 drp OU HS #2.5 mL 12/04/15 12/24/21 (Xalatan) metoprolol tartrate 25 mg tablet 12.5 mg PO BID #0 tabs 12/04/15 12/24/21 tamsulosin 0.4 mg capsule (Flomax) 0.4 mg PO QDAY #0 caps 12/04/15 12/24/21 Allergies Allergy/AdvReac Type Severity Reaction Status Date / Time No Known Drug Allergies Allergy Verified 12/24/21 17:02 Review of Systems Constitutional Constitutional: Denies fever(s) Musculoskeletal Musculoskeletal: Reports system reviewed and no additional complaints, except as documented Integumentary/Breasts Skin/Breast: Reports system reviewed and no additional complaints, except as documented Neurologic Neurologic: Reports system reviewed and no additional complaints, except as documented Hematologic/Lymphatic On Anticoagulants: Yes Patient History Medical History Coronary artery disease Dyslipidemia Hypertension Surgical History History of back surgery Hx of CABG Social History household members: spouse Smoking Status: Never smoker Smoking Status: Never smoker alcohol intake frequency: a few times a week Substance Use Type: does not use Exam Initial Vital Signs Initial Vital Signs: Vital Signs Temperature 98.1 F 12/24/21 16:52 Pulse Rate 69 12/24/21 16:52 Respiratory Rate 19 12/24/21 16:52 Blood Pressure 115/61 12/24/21 16:52 Pulse Oximetry 98 12/24/21 16:52 Oxygen Delivery Method 12/24/21 16:52 Resp Effort & Inspection: normal respiratory effort Cardio Rate: regular rate Pulses: dorsalis pedis present on the right Skin Other: Patient with redness over the lateral and the medial malleolus that extends to the dorsum of the foot and proximal to the ankle. There are no breaks in the skin. No fluctuance. Neuro Sensory Exam: no sensory deficits noted Extrem Other: Patient does have swelling to the right ankle located mostly on the mediolateral aspect. Has difficulty with flexion and extension. Also has tenderness on the distal portion of his tibia/fibula. His right calf muscle and right knee are unremarkable. Course Orders Ordered: ED Orders 12/24/21 17:05 US periph venous low extrem rt Stat 12/24/21 17:54 CHEM7 [Basic Metabolic Panel] Stat Complete Blood Count AUTO DIFF Stat 12/24/21 19:08 ESR [Erythrocyte Sedimentation Rate] Stat 12/24/21 19:09 CRP [C-Reactive Protein Quant] Stat 12/24/21 19:45 Consult to Internal Medicine Stat Consult to Orthopedic Surgery Stat 12/24/21 20:06 Body Fluid Culture Stat Cell Count w Diff Body Fluid Stat 12/24/21 20:31 Blood Culture Stat Aspirin (Aspirin Ec 81 Mg Tablet) 81 mg PO DAILY VICKY Atorvastatin Calcium (Atorvastatin 20 Mg Tablet) 40 mg PO BEDTIME VICKY Clobetasol Propionate (Clobetasol 0.05% Cream 15 Gm) 1 applic TOP BID VICKY Ceftriaxone Sodium 1,000 mg/ (Sodium Chloride) 100 mls @ 200 mls/hr IV Q24H VICKY Lactated Ringer's (Lactated Ringers) 1,000 mls @ 125 mls/hr IV CONT VICKY Vancomycin HCl (Vancomycin) 1,000 mg in 200 mls @ 200 mls/hr IV Q12H VICKY Stop: 12/25/21 09:59 Latanoprost (Latanoprost 0.005% Ophth 2.5 Ml) 1 drops EYE-BOTH BEDTIME [facility] Lisinopril (Lisinopril 10 Mg Tablet) 10 mg PO DAILY [facility] Metoprolol Tartrate (Metoprolol Ir 25 Mg Tablet) 12.5 mg PO BID [facility] Naloxone HCl (Naloxone 0.4 Mg/Ml Vial) 0.2 mg IV Q2MIN PRN PRN Reason: Opiate Reversal Ondansetron HCl (Ondansetron 4 Mg Odt) 4 mg PO Q4HR PRN PRN Reason: Nausea And Vomiting Ondansetron HCl (Ondansetron 4 Mg/2 Ml Inj) 4 mg IV Q4HR PRN PRN Reason: Nausea And Vomiting Oxycodone HCl (Oxycodone Ir 5 Mg Tablet) 5 mg PO Q3HR PRN PRN Reason: Pain, Moderate (4-6) Polyethylene Glycol (Polyethylene Glycol 3350 17 Gm Powd.Pack) 17 gm PO DAILY [facility] Tamsulosin HCl (Tamsulosin 0.4 Mg Capsule) 0.4 mg PO DAILY [facility] Discontinued Medications Acetaminophen (Acetaminophen 325 Mg Tablet) 650 mg PO Q6HR PRN PRN Reason: Fever/Mild Pain (1-3) Acetaminophen (Acetaminophen 325 Mg Tablet) 975 mg PO PACUNOW PRN PRN Reason: Pain, Mild (1-3) Hydromorphone HCl (Hydromorphone 1 Mg Inj) 1 mg IV Q3H PRN PRN Reason: Pain, Moderate (4-6) Last Admin: 12/24/21 20:37 Dose: 1 mg Documented By: RIAN Hydromorphone HCl (Hydromorphone 2 Mg Inj) 0 mg IV Q5MIN PRN PRN Reason: Pain, Severe (7-10) Vancomycin HCl (Vancomycin) 1,000 mg in 200 mls @ 200 mls/hr IV NOW ONE Stop: 12/24/21 20:42 Last Infusion: 12/24/21 22:35 Dose: 0 mls/hr Documented By: Admin: 12/24/21 21:25 Dose: 200 mls/hr Documented By: KAREN Ceftriaxone Sodium 1,000 mg/ (Sodium Chloride) 100 mls @ 200 mls/hr IV NOW ONE Stop: 12/24/21 19:44 Last Infusion: 12/24/21 21:25 Dose: 0 mls/hr Documented By: Admin: 12/24/21 21:09 Dose: 200 mls/hr Documented By: KAREN Lactated Ringer's (Lactated Ringers) 1,000 mls @ 42 mls/hr IV CONT VICKY Last Infusion: 12/24/21 23:07 Dose: 100 mls/hr Documented By: Admin: 12/24/21 20:50 Dose: 42 mls/hr Documented By: ELOY Ceftriaxone Sodium 1,000 mg/ (Sodium Chloride) 100 mls @ 200 mls/hr IV NOW ONE Stop: 12/24/21 21:29 Cefazolin Sodium/Dextrose (Ancef) 100 mls @ 200 mls/hr IV NOW ONE Stop: 12/24/21 23:29 Lidocaine HCl (Lidocaine 1% (Pf)) 2 ml INJ NOW ONE Stop: 12/24/21 19:13 Ondansetron HCl (Ondansetron 4 Mg/2 Ml Inj) 4 mg IV NOW PRN PRN Reason: Nausea And Vomiting Vital Signs Vital signs: Vital Signs - 8 hr 12/24/21 16:52 Temperature 98.1 F Pulse Rate 69 Respiratory Rate 19 Blood Pressure 115/61 Pulse Oximetry 98 Oxygen Delivery Method Room Air MDM - Extremity (Nontraumatic) Lab Data Result diagrams: 12/24/21 17:54 12/24/21 17:54 Labs: Lab Results 12/24/21 12/24/21 12/24/21 Range/Units 17:54 17:54 19:08 WBC 15.1 H (4.5-11.0) X10^3/uL RBC 4.70 (4.5-5.9) X10^6/uL Hgb 14.7 (13.5-17.5) g/dL Hct 43.0 (41-53) % MCV 91.6 (80-100) fL MCH 31.2 (26-34) PG MCHC 34.1 (30-36) % RDW 12.8 (11.6-14.8) % Plt Count 163 (150-400) X10^3/uL Neut % (Auto) 79.8 H (50-75) % Lymph % (Auto) 7.1 L (25-40) % [place] % (Auto) 12.8 (3-14) % Eos % (Auto) 0.0 L (2-4) % Baso % (Auto) 0.3 (0-2) % Neut # (Auto) 50087 H (5497-7933) /uL Lymph # (Auto) 1100 (4485-3205) /uL [place] # (Auto) 1900 H (0-900) /uL Eos # (Auto) 0 (0-450) /uL Baso # (Auto) 0 (0-100) /uL ESR 11 (0-15) MM/HR Sodium 134 L (137-145) mmol/L Potassium 4.5 (3.4-5.1) mmol/L Chloride 96 L (98-107) mmol/L Carbon Dioxide 28 (22-32) mmol/L BUN 17 (9-20) mg/dL Creatinine 0.91 (0.66-1.25) mg/dL Estimated GFR > 60 (>60) mL/min BUN/Creatinine Ratio 18.7 (6-22) Glucose 123 H (80-110) mg/dL Calcium 8.9 (8.4-10.2) mg/dL C-Reactive Protein (<1.0) mg/dL 12/24/21 Range/Units 19:09 WBC (4.5-11.0) X10^3/uL RBC (4.5-5.9) X10^6/uL Hgb (13.5-17.5) g/dL Hct (41-53) % MCV (80-100) fL MCH (26-34) PG MCHC (30-36) % RDW (11.6-14.8) % Plt Count (150-400) X10^3/uL Neut % (Auto) (50-75) % Lymph % (Auto) (25-40) % [place] % (Auto) (3-14) % Eos % (Auto) (2-4) % Baso % (Auto) (0-2) % Neut # (Auto) (8471-2348) /uL Lymph # (Auto) (2874-9120) /uL [place] # (Auto) (0-900) /uL Eos # (Auto) (0-450) /uL Baso # (Auto) (0-100) /uL ESR (0-15) MM/HR Sodium (137-145) mmol/L Potassium (3.4-5.1) mmol/L Chloride (98-107) mmol/L Carbon Dioxide (22-32) mmol/L BUN (9-20) mg/dL Creatinine (0.66-1.25) mg/dL Estimated GFR (>60) mL/min BUN/Creatinine Ratio (6-22) Glucose (80-110) mg/dL Calcium (8.4-10.2) mg/dL C-Reactive Protein 13.9 H (<1.0) mg/dL Imaging Data US - DVT: Radiologist's Impression: [address] [address] Ultrasound Report Signed Patient: Ganesh Beal MR#: [id number] : 1950 Acct:[id number] Age/Sex: 71 / M Date of Service: 12/24/21 Loc: ED Accession Number: [id number] ?? Procedure: US periph venous low extrem rt Ordering Provider: Callie An D.O. PROCEDURE:? US PERIPH VENOUS LOW EXTREM RT ? INDICATIONS:? PAIN, EDEMA; 11 DAYS POST HERNIA REPAIR ? TECHNIQUE:? Real-time imaging, as well as color and pulse Doppler interrogation, were performed of the lower extremity deep veins from the inguinal ligament to the popliteal fossa.? ? COMPARISON:? None. ? FINDINGS:? The common femoral, femoral and popliteal veins are normally compressible, and free of intraluminal thrombus.? Color and pulse Doppler demonstrate normal phasic intraluminal flow.? There is normal augmentation response to distal compression maneuver. ? ? IMPRESSION:? Negative for deep venous thrombosis of the right lower extremity. ? ? ? Dictated by: Kayden Bell M.D. on 12/24/2021 at 18:34 ? ? Approved by: Kayden Bell M.D. on 12/24/2021 at 18:35? MDM Narrative Medical decision making narrative: Patient is afebrile. Lab work today does show a new leukocytosis. Ultrasound negative for DVT. Patient is not tachycardic and is not septic. He does redness and swelling in his right ankle that is new compared to my evaluation last evening. Has at least cellulitis but there is concern about septic joint. Discussed the case with Dr. Miranda on-call for Orthopedics who came to the emergency department and did do a arthrocentesis. Did return what appeared to be purulent material. Culture sensitivity and Gram stain were ordered per her request. Antibiotics administered per her request. Patient will be admitted for surgical treatment. Patient expressed understanding and agreement. Also discussed the case with AMIE Sharif the [facility] hospitalist who will admit the patient after patient's surgical intervention. Discharge Plan Departure Patient Disposition: Admitted as Observation Clinical Impression: Septic joint Admit Date/Time: 12/24/21 19:49 Admit Provider: Katina Sharif
[2021-12-24 19:33] LABS: Erythrocyte Sedimentation Rate 11 MM/HR (0-15)
--- NOTE | 2021-12-24 19:50 | P.HP_ITS ---
History of Present Illness History of Present Illness Date Patient Seen: 12/24/21 Time Patient Seen: 19:30 Date of Onset of Symptoms: 12/23/21 Chief complaint: septic right ankle Narrative: This is a 71-year-old gentleman who has several medical problems. He had a recent or robotic assisted hernia repair. He notes some increased right ankle pain starting yesterday which has progressively worsened. Was seen in the emergency room yesterday and treated with conservative measures. He had an ultrasound which was negative for a DVT. He had x-rays which did not show significant injury to his right ankle. He notes progressive worsening right ankle pain and progressive erythema. He did not have significant fevers at home. He is on Eliquis for atrial fibrillation and is scheduled for a cardiac ablation. He took his Eliquis today this morning and is due for a 2nd dose. He did have a minor trauma yesterday when he was barefoot and had a minor injury to his right foot and ankle. He has had a recent flu vaccine. Patient History Medical History (Updated 12/24/21 @ 19:56 by Leonila Miranda MD) Coronary artery disease Dyslipidemia Hypertension Surgical History History of back surgery Hx of CABG Family & Social History Safety & Behavioral: Feels Safe in Current Yes Environment Been Physically Hurt or No Threatened By a Person Tobacco & Substance use: Smoking Status Never smoker alcohol intake frequency a few times a week Substance Use Type does not use Meds Home Medications and Allergies Home Medications Medication Instructions Recorded Confirmed Type aspirin 81 mg tablet,delayed 81 mg PO QDAY #30 tabs 12/04/15 History release atorvastatin 40 mg tablet (Lipitor) 40 mg PO HS #30 tabs 12/04/15 History cephalexin 500 mg capsule (Keflex) 500 mg PO QID #28 caps 12/04/15 Rx clobetasol-emollient 0.05 % 1 param topical ##30 12/04/15 History topical cream coQ10 (ubiquinol) 100 mg capsule 100 mg PO ##0 12/04/15 History fluocinonide 0.05 % topical cream 1 param topical ##15 12/04/15 History fluocinonide 0.05 % topical cream 1 param topical ##15 12/04/15 History latanoprost 0.005 % eye drops 1 drp OU HS #2.5 mL 12/04/15 History (Xalatan) lisinopril 10 mg tablet 10 mg PO QDAY #30 tabs 12/04/15 History metoprolol tartrate 25 mg tablet 12.5 mg PO BID #0 tabs 12/04/15 History multivitamin (Multiple Vitamins 1 tab PO QDAY #0 tabs 12/04/15 History tablet) tamsulosin 0.4 mg capsule (Flomax) 0.4 mg PO QDAY #0 caps 12/04/15 History cephalexin 500 mg capsule 500 mg PO QID #40 caps 02/08/18 Rx Allergies Allergy/AdvReac Type Severity Reaction Status Date / Time No Known Drug Allergies Allergy Verified 12/24/21 17:02 Review of Systems Review of Systems Narrative: Denies significant fevers or chills at home, notes significant right ankle pain but the is not having any significant pain in his knee or hip, no other known recent fever chills or infection Exam Vital Signs (past 8 hours): - 12/24/21 16:52 Temperature 98.1 F Pulse Rate 69 Respiratory Rate 19 Blood Pressure 115/61 Pulse Oximetry 98 Oxygen Delivery Method Room Air Oxygen Delivery Method Room Air Narrative Exam Narrative: HEENT is benign, he is resting comfortably, he is alert and oriented, cor is regular, no significant murmur, lungs are clear, abdomen soft and benign, right lower extremity shows erythema on the lateral aspect of the right ankle with obvious substantial swelling, he has significant decreased range of motion into his right ankle, it is somewhat fluctuant, his Achilles is intact, there is irritation along the peroneal tendons, skin is intact Objective Labs Result Diagrams: 12/24/21 17:54 12/24/21 17:54 Labs: Laboratory Results - last 24 hr 12/24/21 12/24/21 12/24/21 17:54 17:54 19:08 WBC 15.1 H RBC 4.70 Hgb 14.7 Hct 43.0 MCV 91.6 MCH 31.2 MCHC 34.1 RDW 12.8 Plt Count 163 Neut % (Auto) 79.8 H Lymph % (Auto) 7.1 L [place] % (Auto) 12.8 Eos % (Auto) 0.0 L Baso % (Auto) 0.3 Neut # (Auto) 65128 H Lymph # (Auto) 1100 [place] # (Auto) 1900 H Eos # (Auto) 0 Baso # (Auto) 0 ESR 11 Sodium 134 L Potassium 4.5 Chloride 96 L Carbon Dioxide 28 BUN 17 Creatinine 0.91 Estimated GFR > 60 BUN/Creatinine Ratio 18.7 Glucose 123 H Calcium 8.9 ultrasound is negative for DVT, Right ankle shows calcific densities along the right ankle and some generalized osteoarthritic change Assessment & Plan Assessment and plan (1) Septic joint: Status: Acute (2) Ankle pain, right: Status: Acute Plan His right ankle was prepped in the emergency room. A 22 gauge needle was carefully inserted into the lateral aspect of the ankle and ankle joint region. I aspirated about 3 cc of gross pus. It was sent for stat Gram stain culture and sensitivity and cell count. It showed clear evidence of a gross infection. He is anticoagulated on Eliquis. He did have something to eat around noon her to an apple, I told him to be strict NPO now to not take his Eliquis and I have recommended that we work on him on an emergent basis. The procedure alternjosé miguel whaley risks benefits and complications were discussed in detail. I have recommended a emergent right ankle irrigation and debridement. He needs to be admitted as an inpatient and placed on IV antibiotics pending culture results. He likely will need antibiotics for at least a few weeks depending upon intraoperative findings. Time Spent With Patient Critical Care time: I spent a total of [] minutes of critical care time on this patient's care today; this time is exclusive of procedural time.
--- NOTE | 2021-12-24 20:03 | PM.OP.1 ---
Operative Date/Time/Diagnoses Date of procedure: 12/24/21 Time of procedure: 20:30 Pre-op diagnosis: Septic right ankle Post-op diagnosis: same Procedure & Clinicians Procedure: Right ankle arthroscopy with Irrigation and debridement septic right ankle Same procedure as scheduled: Yes Indications: This is a 71-year-old gentleman with a septic right ankle. He is brought to the operating room on emergent basis for irrigation and debrided procedure alternatives risks benefits and complications were discussed in detail. Surgeon: Leonila Miranda Click Yes if Unassisted: Yes Anesthesia Type: General Operative Notes Findings: Gross pus obviously infected ankle Closure Type: primary Specimen(s): other (Culture and sensitivity, Gram stain) Applied: drain(s) Estimated Blood Loss (mL): 50 Blood products transfused: none Procedure in detail: Patient is brought to the operating room his right lower extremity prepped draped standard sterile fashion. Time-out was performed. He was given IV antibiotics in the emergency room. He underwent induction of a general anesthesia. A high thigh tourniquet was applied and elevated to 250 mmHg. Lateral skin incision was made dissection was carried out through skin and subcutaneous tissues to the level of the ankle capsule. Gross purulence infection was encountered when and needle was inserted through the capsule. A medial and lateral arthroscopic portal was established. There was good visualization of the talo tibial joint. A debridement was performed removing grossly infected synovium as well as marked purulence material. A total of more than 6 L was used for irrigated with normal saline. Deep cultures were sent. A drain was placed. The wound was closed loosely with interrupted 3 -0 nylon. The wound was dressed sterilely with 4x4s Kerlix and a bias cut stockinette. The drain was left in. Patient tolerated the procedure well was transferred recovery room in satisfactory condition. Complications: none Post-operative Condition: stable Disposition: Acute Care Plan for aftercare: Check culture and sensitivity. IV antibiotics and plan to continue antibiotics for multiple weeks for right septic ankle.
[2021-12-24] MEDS: HYDROMORPHONE 1 MG INJ IV (20:37)
[2021-12-24] MEDS: LACTATED RINGERS 1,000 ML 42 ML IV (20:50)
[2021-12-24 20:55] LABS: COVID19 -Nasal RAPID Negative (Negative)
[2021-12-24] MEDS: cefTRIAXone 1,000 MG in SODIUM CHLORIDE 0.9% 100 ML 200 MG IV (21:09)
[2021-12-24] MEDS: VANCOMYCIN 1,000 MG/200 ML PIGGYBACK 200 MG IV (21:25)
--- NOTE | 2021-12-24 21:30 | SUR.OPER ---
Supine on padded OR bed, head on pillow, arms secured on padded arm boards at <90 degrees abduction, legs uncrossed, safety belt at lower torso, tape over blanket over left lower leg. Right leg in control of the Surgeon.
[2021-12-24 22:27] LABS: C-Reactive Protein Quant 13.9 mg/dL (<1.0)
--- NOTE | 2021-12-24 23:08 | SUR.PHASEI ---
2250-vss. wide awake and alert. denies pain or nausea.Tolerated ice chips. rt foot elevated. dressing cdi. csm rtle intact. hemovac rt lateral ankle compressed-nothinng in container=scant blood in tubing. report to floor wind operations manager, Barbara, and care transfered now at bedside. no belongings. voided x 2 scant yellow urine. desires to stand to void.
[2021-12-24] MEDS: LACTATED RINGERS 1,000 ML 125 ML IV (23:52)
[2021-12-24] MEDS: ATORVASTATIN 20 MG TABLET 40 MG PO (23:52)
[2021-12-24] MEDS: CEFAZOLIN 2 GM/100 ML PREMIX 100 ML IV (23:52)
[2021-12-25] VITALS (10 sets, daily range): BP systolic 95–122; BP diastolic 43–73; PULSE 63–89; RESP 12–18; TEMP 36.4–37.3; O2SAT 94–98
[2021-12-25 00:02] LABS: Body Fluid Appearance CLOUDY; Body Fluid Clotted? NO CLOTS PRESENT; Body Fluid Color LIGHT BROWN
[2021-12-25 00:07] LABS: Body Fluid Red Blood Cells 74322 /uL; Body Fluid Tot Nucleated Cells 195354 /uL
[2021-12-25 01:08] LABS: Mononuclear WBC Body Fluid 7 %; Polynuclear WBC Body Fluid 93 %
--- NOTE | 2021-12-25 01:08 | P.HP_ITS ---
History of Present Illness History of Present Illness Date Patient Seen: 12/24/21 Time Patient Seen: 21:02 Chief complaint: septic right ankle Narrative: Ganesh Reardon is a 71-year-old gentleman with a medical history of BPH, coronary artery disease, basal cell carcinoma, CABG x3, atrial fibrillation on Eliquis (scheduled for cardiac ablation in February), recent or robotic assisted hernia repair.? The patient was seen in the automotive software engineer of the hours on 12/24/2021 in the ED for right ankle pain, was treated conservatively and discharged home only to return later in the evening as his right ankle pain starting yesterday has progressively worsened, ultrasound negative for a DVT, x-rays negative for significant injury to right ankle.? He notes progressive worsening right ankle pain and progressive erythema.? He did not have significant fevers at home.?He took his Eliquis today this morning and is due for a 2nd dose.? He did have a minor trauma yesterday when he was barefoot and had a minor injury to his right foot and ankle.? He has had a recent flu vaccine. Patient was seen and evaluated by Dr. Miranda orthopedics in the emergency department and was taken directly from the ED to the OR for septic joint right ankle washout. Patient was evaluated and seen for admit after returning to the floor postop. Patient is resting comfortably in bed in no discomfort at this time vitals are stable temp 98.1?, BP 115/61, HR 69, R 19, O2 saturation 98% on room air. Patient denies chest pain, shortness of breath, headache, changes in vision, abdominal pain, nausea, vomiting, fever, body aches, chills, any pain or distress at this time. Patient's lower right leg ankle and foot are wrapped. Patient's lab work from ED elevated WBC 15.1, with a left shift neutrophils 12,100, mono 1900, mild hyponatremia sodium 134, chloride 96, glucose 123, ESR WNL, CRP 13.9. Patient be admitted for septic joint right ankle. To be managed by Dr. Miranda orthopedics, hospitalist service to manage atrial fibrillation and hypertension. Patient History Medical History (Updated 12/25/21 @ 04:21 by REJI Sood-) BPH (benign prostatic hyperplasia) Coronary artery disease Dyslipidemia Hypertension Surgical History History of back surgery Hx of CABG Family & Social History [facility] History (Updated 12/25/21 @ 04:[facility] Mother Coronary artery disease Father Cancer Social History: household members spouse, raising 3 grandchildren Prior Living Arrangements House Safety & Behavioral: Feels Safe in Current Yes Environment Been Physically Hurt or No Threatened By a Person Tobacco & Substance use: Smoking Status Never smoker alcohol intake frequency a few times a week Substance Use Type does not use Meds Home Medications and Allergies Home Medications Medication Instructions Recorded Confirmed Type aspirin 81 mg tablet,delayed 81 mg PO QDAY #30 tabs 12/04/15 12/24/21 History release atorvastatin 40 mg tablet (Lipitor) 40 mg PO HS #30 tabs 12/04/15 12/24/21 History clobetasol-emollient 0.05 % 1 param topical PRN Dry Skin ##30 12/04/15 History topical cream coQ10 (ubiquinol) 100 mg capsule 100 mg PO BEDTIME ##0 12/04/15 12/24/21 History latanoprost 0.005 % eye drops 1 drp OU HS #2.5 mL 12/04/15 12/24/21 History (Xalatan) metoprolol tartrate 25 mg tablet 12.5 mg PO BID #0 tabs 12/04/15 12/24/21 History tamsulosin 0.4 mg capsule (Flomax) 0.4 mg PO QDAY #0 caps 12/04/15 12/24/21 History Eliquis 5 mg PO BID 12/25/21 12/25/21 History Allergies Allergy/AdvReac Type Severity Reaction Status Date / Time No Known Drug Allergies Allergy Verified 12/24/21 17:02 Review of Systems Review of Systems Narrative: All 12 point systems reviewed with the patient and are negative except otherwise documented. Exam Vital Signs (past 8 hours): - 12/24/21 20:42 12/24/21 20:44 12/24/21 20:44 Temperature Pulse Rate 80 77 Respiratory Rate Blood Pressure 115/63 Pulse Oximetry 95 Oxygen Delivery Method Oxygen Flow Rate 12/24/21 22:18 12/24/21 22:23 12/24/21 22:30 Temperature 98.8 F 99.5 F Pulse Rate 83 96 H 90 Respiratory Rate 17 18 18 Blood Pressure 109/68 106/68 108/59 L Pulse Oximetry 98 96 94 Oxygen Delivery Method Room Air Nasal Cannula Room Air Oxygen Flow Rate 2 12/24/21 22:29 12/24/21 22:45 12/24/21 23:00 Temperature 99.5 F 97.9 F Pulse Rate 86 82 69 Respiratory Rate 16 16 16 Blood Pressure 116/67 106/65 128/64 Pulse Oximetry 96 94 96 Oxygen Delivery Method Room Air Room Air Oxygen Flow Rate 0 Oxygen Delivery Method Room Air Oxygen Flow Rate 0 Narrative Exam Narrative: General: Patient is a well-developed, well-nourished in no distress at this time. HEENT: Normocephalic, atraumatic, extraocular muscles intact, oral pharynx is clear and mucous membranes are moist. Neck is supple and symmetric, trachea is midline, no adenopathy, no thyroid enlargement, nontender, no masses palpated. Negative for JVD Chest: Normal AP diameter and contour without kyphoscoliosis, no nasal flaring, retractions, or tachypneic labored Lungs: Auscultation of all lung ignacio are clear without adventitious sounds, wheezes, rhonchi, or rales. Cardio: S1 & S2 with regular rate and rhythm without murmur, rubs, or gallops, no carotid bruit, no cardiac pulsations present. Abdomen: Soft nontender, negative for organomegaly, or masses. Bowel sounds are present in all 4 quadrants without guarding or rebound, no CVA tenderness. Musculoskeletal: Muscle strength and tone are equal within normal limits, no deformity, crepitus, effusions, cyanosis, clubbing or edema present. Full range of motion intact radial and pedal pulses are normal. Exception right lower leg is postoperatively dressed. Skin: Warm dry and intact without rashes, ulcerations or petechiae. Neuro: Alert and orientated x3, strength is +5/5 in all extremities, sensation to touch intact, no gross deficits noted of cranial nerves. Psych: Patient has a well-kept appearance, appropriate affect, mental status attitude thought context and judgment are appropriate for age. Objective Labs Result Diagrams: 12/24/21 17:54 12/24/21 17:54 Labs: Laboratory Results - last 24 hr 12/24/21 12/24/21 12/24/21 17:54 17:54 19:08 WBC 15.1 H RBC 4.70 Hgb 14.7 Hct 43.0 MCV 91.6 MCH 31.2 MCHC 34.1 RDW 12.8 Plt Count 163 Neut % (Auto) 79.8 H Lymph % (Auto) 7.1 L Parker % (Auto) 12.8 Eos % (Auto) 0.0 L Baso % (Auto) 0.3 Neut # (Auto) 07145 H Lymph # (Auto) 1100 Parker # (Auto) 1900 H Eos # (Auto) 0 Baso # (Auto) 0 ESR 11 Sodium 134 L Potassium 4.5 Chloride 96 L Carbon Dioxide 28 BUN 17 Creatinine 0.91 Estimated GFR > 60 BUN/Creatinine Ratio 18.7 Glucose 123 H Calcium 8.9 C-Reactive Protein Fluid Color Fluid Appearance Fluid RBC Fld Tot Nucleated Cell Body Fluid Clot SARS-CoV-2 (PCR) 12/24/21 12/24/21 12/24/21 19:09 20:00 20:06 WBC RBC Hgb Hct MCV MCH MCHC RDW Plt Count Neut % (Auto) Lymph % (Auto) Parker % (Auto) Eos % (Auto) Baso % (Auto) Neut # (Auto) Lymph # (Auto) Parker # (Auto) Eos # (Auto) Baso # (Auto) ESR Sodium Potassium Chloride Carbon Dioxide BUN Creatinine Estimated GFR BUN/Creatinine Ratio Glucose Calcium C-Reactive Protein 13.9 H Fluid Color Light brown Fluid Appearance Cloudy Fluid RBC 90375 Fld Tot Nucleated Cell [id number] Body Fluid Clot No clots present SARS-CoV-2 (PCR) Negative Assessment & Plan Assessment & Plan narrative: Ganesh Reardon is a 71-year-old gentleman with a medical history of BPH, coronary artery disease, basal cell carcinoma, CABG x3, atrial fibrillation on Eliquis (scheduled for cardiac ablation in February), recent or robotic assisted hernia repair, who requires admit to the hospital for surgical intervention treatment of right ankle septic joint by Dr. Miranda. 1. Septic joint, right ankle, acute, present on admission -managed by Dr. Miranda 2. Chronic atrial fibrillation, chronic, on long-term Eliquis, present on admission -patient has failed cardioversion x2, is scheduled for cardiac ablation 02/26/[address] Beavers -patient placed on telemedicine -continue metoprolol -Eliquis Held due to surgery, Dr. Miranda will restart 3. Hypertension, essential, chronic, present on admission -continue patient's metoprolol 4. Coronary artery disease, chronic, with hyperlipidemia, present on admission -continue Lipitor 5. BPH, chronic, present on admission -continue Flomax Code status:Full Surrogate decision maker: Spouse Lizabeth ROA PCR:Negative DVT/VTE prophylaxis:Held Eliquis, left SCD only Disposition: Patient admitted to the hospitalist medical service, and Orthopedics for surgical intervention, expected length of stay greater than 2 midnights. I have utilized all available immediate resources to obtain, update, or review the patient's current medications. I confirmed that the patient's advanced care plan is present, Code status is documented and/or surrogate decision maker is listed in the patient's medical record. Time Spent With Patient Critical Care time: I spent a total of [] minutes of critical care time on this patient's care today ; this time is exclusive of procedural time.
[2021-12-25] MEDS: OXYCODONE IR 5 MG TABLET PO ×4 (04:54→22:16)
--- NOTE | 2021-12-25 05:16 | PC.NURSE ---
Pt stating pain 5/10 and requesting pain meds. 5mg Oxycodone given. Pt accidently removed IV & new one was placed in R forearm. Pt urinating often and has needed some reminders to call when getting out of bed to urinate. Bed alarm on. IV fluids d/c per written orders. Tolerating PO well.
[2021-12-25 06:18] LABS: Add Manual Diff / Slide Review NO; Basophils Absolute Auto 0 /uL (0-100); Basophils Percent Auto 0.2 % (0-2); Eosinophils Absolute Auto 0 /uL (0-450); Hematocrit 41.4 % (41-53); Hemoglobin 14.4 g/dL (13.5-17.5); Lymphocytes Absolute Auto 700 /uL (1100-4500); Lymphocytes Percent Auto 4.1 % (25-40); Mean Corpuscular HGB Conc 34.8 % (30-36); Mean Corpuscular Hemoglobin 31.6 PG (26-34); Mean Corpuscular Volume 90.8 fL (80-100); Monocytes Absolute Auto 1000 /uL (0-900); Monocytes Percent Auto 5.9 % (3-14); Neutrophils Absolute Auto 15900 /uL (1500-7000); Neutrophils Percent Auto 89.8 % (50-75); Platelet Count 148 X10^3/uL (150-400); Red Blood Cell Count 4.56 X10^6/uL (4.5-5.9); White Blood Cell Count 17.7 X10^3/uL (4.5-11.0)
[2021-12-25 06:39] LABS: BUN Creatinine Ratio 19.3 (6-22); Blood Urea Nitrogen 16 mg/dL (9-20); Carbon Dioxide 29 mmol/L (22-32); Chloride 99 mmol/L (98-107); Estimated Glomerular Filt Rate > 60 mL/min (>60); Glucose 153 mg/dL (80-110); HEMOLYSIS < 15 (0-50); Potassium 4.6 mmol/L (3.4-5.1); Sodium 135 mmol/L (137-145)
[2021-12-25] MEDS: ASPIRIN EC 81 MG TABLET PO (09:11)
[2021-12-25] MEDS: TAMSULOSIN 0.4 MG CAPSULE PO (09:11)
[2021-12-25] MEDS: VANCOMYCIN 1,000 MG/200 ML PIGGYBACK 200 MG IV ×2 (09:12→17:14)
[2021-12-25] MEDS: polyethylene glycoL 3350 17 GM POWD.PACK PO (09:12)
--- NOTE | 2021-12-25 10:21 | PT.IIE ---
Current Diagnoses Pyogenic arthritis, unspecified (12/24/21) Pain in right ankle and joints of right foot (12/24/21) Surgery Performed Operation Date: 12/24/21 20:30 Actual Procedures p Right Ankle Arthroscopy with Irrigation & Debridement (Right) - Leonila Miranda MD Surgical History (Last Reviewed 12/25/21 @ 04:21 by Katina Sharif [facility]) History of back surgery Hx of CABG Medical History (Last Updated 12/25/21 @ 04:21 by Katina Sharif [facility]) BPH (benign prostatic hyperplasia) Coronary artery disease Dyslipidemia Hypertension Physical Therapy Inpatient Evaluation/Re-Eval M1 PT/OT-IP Prior Functional Status Start: 12/25/21 08:47 Freq: NEEDED Status: Active Protocol: Document 12/25/21 10:21 AW (Rec: 12/25/21 10:46 AW [id number]) Medical Review Prior Functional Status Medical History Reviewed Yes Communication WNL Mobility and Gait Pt is active and independent at baseline. 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 He played basketball into his 30's and reports he rolled his ankles several times. Activities of Daily Living and IADL's Independent Prior Functional Level (Other details) Pt had robot-assisted hernia surgery two weeks ago and is scheduled for cardiac ablation procedure in February Social History Household Members spouse Living Arrangements House Number of Floors (Floors) Two Floors Number of Stairs To Enter/Railing? Pt enters through the garage with no stairs. There is a 1/2 bath and a bed on this level where pt intends to stay. 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 He lives with his spouse, Lizabeth, and their three grandchildren ages 15, 17, and 19. M2 PT-IP Current Condition Start: 12/25/21 08:47 Freq: NEEDED Status: Active Protocol: Document 12/25/21 10:21 AW (Rec: 12/25/21 10:46 AW [id number]) Physical Therapy Current Condition Current Condition Evaluation Date 12/25/21 Treatment Diagnosis septic ankle joint s/p I&D; impaired mobility and gait Onset Date 9/10/22 M3 PT-IP Subjective Start: 12/25/21 08:47 Freq: NEEDED Status: Active Protocol: Document 12/25/21 10:21 AW (Rec: 12/25/21 10:46 AW [id number]) Subjective Physical Therapy Visit Type Type Initial Evaluation Visit Start Time 09:50 Visit Stop Time 10:21 Total Visit Minutes 41 Physical Therapy Visit Comments Patient Comments Pt is willng to participate with PT Patient Goals Reduce pain, improve ankle mobility, return to regular activity. M4 PT-IP Mobility and Gait Start: 12/25/21 08:47 Freq: NEEDED Status: Active Protocol: Document 12/25/21 10:21 AW (Rec: 12/25/21 11:01 AW [id number]) PT-Bed Mobility Assessment Supine to Sit Supine to Sit Standby Assistance PT-Transfer Assessment Sit to and From Stand Sit to and from Stand Contact Guard Assistance,Use of Upper Extremities Equipment Transfer Assistive Device Gait Belt,Front Wheeled Walker Orthotic/Prosthetic Devices or Brace: No Transfers Transfer Destination Chair,Toilet Transfer Technique pt ambulated with FWW Transfer Ability Level of Assist Contact Guard Assistance Comments Mobility Comments Pt was lying in bed as PT arrived. He was able to sit up on R side of the bed SBA but complained of 5/10 ankle pain with leg in dependent position . PT educated pt on PWB RLE and pt stated his pain is too much to consider putting weight on his right foot so will attempt NWB. He stood CGA with cues to push off from the bed. With FWW, pt ambulated 20 feet to the chair CGA while NWB RLE. He had a LOB as he approached the chair but was able to steady himself with the walker and reaching for the wall nearby. He sat on the chair and rested . He was able to stand from the chair and walk to the toilet, transferring with heavy use of grab bars and cues to swing RLE forward. He stood from the toilet and returned to the chair with FWW CGA. Pt was left with call light and all needs in reach. He agreed to call for all mobility needs. Gait Assessment Gait Gait Assistance Required: Contact Guard Assist Distance (Feet) 20 Able to Maintain Weight Bearing Status Yes During Gait Assistive Devices Assistive Device Gait Belt,Front Wheeled Walker Orthotic/Prosthetic Devices or Brace: No Gait Deviations General Gait Pattern Antalgic,Step-to Gait Factors Limiting Gait Function Factors Limiting Gait Function Limited Range of Motion,Pain Comments Gait Comments See mobility comments for details. Stair Climbing Assessment Comments Stair Climbing Comments Not assessed. Pt will not need to negotiate stairs at home. PT-Balance Assessment Sitting Balance and Reactions Static Sitting Balance Ability Normal Dynamic Sitting Balance Ability Normal Standing Balance and Reactions Static Standing Balance Ability Good Dynamic Standing Balance Ability Good Device Used FWW Comments Other Balance Tests/Deviations/Treatment Pt able to maintain NWB RLE : with FWW M5 PT-IP Objective Assessments Start: 12/25/21 08:47 Freq: NEEDED Status: Active Protocol: Document 12/25/21 10:21 AW (Rec: 12/25/21 11:01 AW [id number]) Orientation Orientation/Cognition Level of Alertness Alert Orientation Age,Day of Week,Place, Situation Language Function Ability No Deficits Noted Safety Awareness Understands Safety Issues Gross Range of Motion Lower Extremity ROM Assessment Right Impaired Impairments Right ankle in bulky dressing, continues to feel tight and stiff. Strength Upper Extremity Strength Assessment Within Functional Limits Lower Extremity Strength Assessment Right Impaired Ankle NT due to pain Comments Strength Comments LLE grossly 5/5 Sensation Assessment Sensation Gross Sensation WNL Other Assessments Other Other Assessments Pt's right ankle is wrapped and not inspected visually at this encounter but pt does complain of swollen and painful feeling. M6 PT-IP Treatment Start: 12/25/21 08:47 Freq: NEEDED Status: Active Protocol: Document 12/25/21 10:21 AW (Rec: 12/25/21 11:01 AW [id number]) Physical Therapy Treatment Exercises Exercises Ankle Pumps,Heel Slides Education Education Provided Weight Bearing Status,Safety M7 PT-IP Assessment and Plan Start: 12/25/21 08:47 Freq: NEEDED Status: Active Protocol: Document 12/25/21 10:21 AW (Rec: 12/25/21 11:01 AW [id number]) PT Summary Assessment and Plan Potential Rehabilitation Potential Excellent Status of Condition at Evaluation Evolving Summary Impairments Pain,ROM,Strength,Balance, Transfers,Gait Assessment Summary Ganesh is a 71yo man seen for PT evaluation on POD1 following I&D for septic right ankle joint. He is active and independent in all regards at baseline with a solid level of fitness. He has orders for partial weightbearing RLE but feels any weightbearing would be too painful. He is able to maintain NWB RLE during 20+ feet of ambulation with FWW. He has assist at home and plans to stay on the entry writer with no need to mange stairs. He will be safe to discharge home with assist and outpatient PT once medically stable but would benefit from continued acute PT to assess mobility with crutches or knee scooter. Goals Bed Mobility Goal Independent Transfer Goal Independent,Front Wheeled Walker Gait Goal Independent,Front Wheel Walker Gait Distance 75 Other Goals - progress gait and transfers to independent with axillary crutches or knee scooter Days to Meet Goals 3 Frequency of Treatment Frequency Of Treatment Once a Day Treatment Plan Physical Therapy Treatment Plan Bed Mobility Training,Transfer Training,Gait Training, Therapeutic Exercise,Balance Retraining,Post Op Education, Discharge Planning,Hot or Cold Pack Other Recommendations and Next Treatment assess mobility with crutches Focus or possibly knee scooter Weight Bearing Status Weight Bearing Status Partial Weight Bearing Allowed Weight Bearing Amount (enter % PWB RLE (pt prefers to do NWB) or #) (%) Recommendations To Nursing Amount of Assist Needed 1 Person Assist Discharge Recommendations PT Discharge Recommendations Home with Assistance, Outpatient PT Equipment Needed for Home Before FWW if unsafe with crutches Discharge Transportation Needs at Discharge Private Vehicle
--- NOTE | 2021-12-25 11:27 | CM.DANOTE ---
Addendum entered by Lola Ledbetter R.N. 12/25/21 15:16: Continued: Patient apparently has + blood cultures and right ankle culture is +. Finals pending. Patient remains on IV antibiotics. Patient is aware he will need to be in the hospital and potentially will receive IV antibiotics detention at home, discussed home infusion services. Spouse in room visiting. RITESH Original Note: Initial Discharge Assessment Note: Case reviewed, met with patient, introduced self and role. Payer: [employer] Program and Self Pay. 71 year old male admitted yesterday with septic right ankle and underwent I&D with Dr Leonila Miranda. Patient receiving IV antibiotics. Unsure if these will be filter bed placer or not per notes. Patient lives with spouse in [place] and is independent at baseline. He desires to return home once medically stable. Plan: Follow for dc needs. RITESH Discharge Planning/Care Management Advanced directive, confirm from FAMILY Start: 12/24/21 23:14 Freq: Q24H Status: Active Protocol: Document 12/25/21 00:19 AM (Rec: 12/25/21 01:24 AM [id number]) Co-signed By Renetta Miranda RN Advance Directive, confirm on record Time 00:29 Person contacted patient Copy received No CM Discharge Assessment Start: 12/25/21 11:21 Freq: Status: Active Protocol: Document 12/25/21 11:21 (Rec: 12/25/21 11:22 [id number]) Discharge Planning Assessment Assigned Community Program Assistant Ann-Marie Ledbetter RN/LYBUOVP Advance Directives? Yes Advance Directives on File No History Provided By Patient Prior Living Arrangements House Household Members spouse Type of transporation used prior to Drives own vehicle admit Independent with ADL's Yes Is patient alert and oriented? Yes Caregiver for Another No Barriers to Discharge No Discharge Plan Home Referrals Initiated None needed Review Status In Process Next Review Type Continued Stay Review
[2021-12-25 14:47] LABS: Enterococcus species Not Detected (Not Detect); Listeria monocytogenes Not Detected (Not Detect)
[2021-12-25 14:48] LABS: Acinetobacter baumannii Not Detected (Not Detect); Candida albicans Not Detected (Not Detect); Candida glabrata Not Detected (Not Detect); Candida krusei Not Detected (Not Detect); Candida parapsilosis Not Detected (Not Detect); Candida tropicalis Not Detected (Not Detect); E. coli Not Detected (Not Detect); Enterobacter cloacae complex Not Detected (Not Detect); Enterobacteriaceae species Not Detected (Not Detect); Haemophilus influenzae Not Detected (Not Detect); Methicillin-resistant gene Not Detected (Not Detect); Neisseria meningitidis Not Detected (Not Detect); Proteus species Not Detected (Not Detect); Pseudomonas aeruginosa Not Detected (Not Detect); Serratia marcescens Not Detected (Not Detect); Staphylococcus species Detected (Not Detect); Streptococcus agalactiae (Gr B Not Detected (Not Detect); Streptococcus pneumonia Not Detected (Not Detect); Streptococcus pyogenes (Gr A) Not Detected (Not Detect); Streptococcus species Not Detected (Not Detect)
--- NOTE | 2021-12-25 18:45 | P.PN_ITS ---
Subjective Subjective Date Patient Seen: 12/25/21 Interval history: Patient is status post right ankle irrigation septic arthritis. Ankle aspirate and blood culture growing Staph aureus. He reports improvement in the ankle pain. Exam Vital Signs (past 8 hours): - 12/25/21 11:47 12/25/21 16:29 Temperature 99.2 F 98.4 F Pulse Rate 84 66 Respiratory Rate 16 16 Blood Pressure 106/53 L 111/55 L Pulse Oximetry 97 98 Oxygen Flow Rate 0 0 Oxygen Delivery Method Room Air Oxygen Flow Rate 0 Narrative Exam Narrative: General: Alert and pleasant male sitting in bedside chair and in no acute distress Objective Labs Result Diagrams: 12/25/21 05:47 12/25/21 05:47 Labs: Laboratory Results - last 24 hr 12/24/21 12/24/21 12/24/21 19:08 19:09 20:00 WBC RBC Hgb Hct MCV MCH MCHC RDW Plt Count Neut % (Auto) Lymph % (Auto) [place] % (Auto) Eos % (Auto) Baso % (Auto) Neut # (Auto) Lymph # (Auto) [place] # (Auto) Eos # (Auto) Baso # (Auto) ESR 11 Sodium Potassium Chloride Carbon Dioxide BUN Creatinine Estimated GFR BUN/Creatinine Ratio Glucose Calcium C-Reactive Protein 13.9 H Fluid Color Fluid Appearance Fluid RBC Fld Tot Nucleated Cell Fluid Polynuclear WBCs Fluid Mononuclear WBCs Fluid Eosinophils Fluid Other Cells Body Fluid Clot A. baumannii (PCR) Yesi albicans (PCR) C. glabrata (PCR) C. krusei (PCR) C. parapsilosis (PCR) C. tropicalis (PCR) SARS-CoV-2 (PCR) Negative Enterobacteriac sp PCR E. cloacae complex PCR Enterococcus sp PCR E. coli (PCR) H. influenzae (PCR) Klebsiella oxytoca PCR Klebsiella pneumoniae List. monocytogenes PCR N. meningitidis (PCR) Proteus species (PCR) Serratia marcescens PCR Staphylococcus sp PCR Staph aureus (PCR) mecA-Methicil Res Gene Streptococcus sp PCR Group A Strep (PCR) Strep agalactiae (PCR) Strep pneumoniae (PCR) P. aeruginosa (PCR) Gil/B-Vanco Res Genes KPC-Carbap Res Gene PCR 12/24/21 12/24/21 12/25/21 20:06 20:31 05:47 WBC 17.7 H RBC 4.56 Hgb 14.4 Hct 41.4 MCV 90.8 MCH 31.6 MCHC 34.8 RDW 13.0 Plt Count 148 L Neut % (Auto) 89.8 H Lymph % (Auto) 4.1 L [place] % (Auto) 5.9 Eos % (Auto) 0.0 L Baso % (Auto) 0.2 Neut # (Auto) 22116 H Lymph # (Auto) 700 L [place] # (Auto) 1000 H Eos # (Auto) 0 Baso # (Auto) 0 ESR Sodium Potassium Chloride Carbon Dioxide BUN Creatinine Estimated GFR BUN/Creatinine Ratio Glucose Calcium C-Reactive Protein Fluid Color Light brown Fluid Appearance Cloudy Fluid RBC 05706 Fld Tot Nucleated Cell 399458 Fluid Polynuclear WBCs 93 Fluid Mononuclear WBCs 7 Fluid Eosinophils Not Reportable Fluid Other Cells Not Reportable Body Fluid Clot No clots present A. baumannii (PCR) Not detected Yesi albicans (PCR) Not detected C. glabrata (PCR) Not detected C. krusei (PCR) Not detected C. parapsilosis (PCR) Not detected C. tropicalis (PCR) Not detected SARS-CoV-2 (PCR) Enterobacteriac sp PCR Not detected E. cloacae complex PCR Not detected Enterococcus sp PCR Not detected E. coli (PCR) Not detected H. influenzae (PCR) Not detected Klebsiella oxytoca PCR Not detected Klebsiella pneumoniae Not detected List. monocytogenes PCR Not detected N. meningitidis (PCR) Not detected Proteus species (PCR) Not detected Serratia marcescens PCR Not detected Staphylococcus sp PCR Detected H Staph aureus (PCR) Detected H mecA-Methicil Res Gene Not detected Streptococcus sp PCR Not detected Group A Strep (PCR) Not detected Strep agalactiae (PCR) Not detected Strep pneumoniae (PCR) Not detected P. aeruginosa (PCR) Not detected Gil/B-Vanco Res Genes Not Reportable KPC-Carbap Res Gene PCR Not Reportable 12/25/21 05:47 WBC RBC Hgb Hct MCV MCH MCHC RDW Plt Count Neut % (Auto) Lymph % (Auto) [place] % (Auto) Eos % (Auto) Baso % (Auto) Neut # (Auto) Lymph # (Auto) [place] # (Auto) Eos # (Auto) Baso # (Auto) ESR Sodium 135 L Potassium 4.6 Chloride 99 Carbon Dioxide 29 BUN 16 Creatinine 0.83 Estimated GFR > 60 BUN/Creatinine Ratio 19.3 Glucose 153 H Calcium 9.0 C-Reactive Protein Fluid Color Fluid Appearance Fluid RBC Fld Tot Nucleated Cell Fluid Polynuclear WBCs Fluid Mononuclear WBCs Fluid Eosinophils Fluid Other Cells Body Fluid Clot A. baumannii (PCR) Yesi albicans (PCR) C. glabrata (PCR) C. krusei (PCR) C. parapsilosis (PCR) C. tropicalis (PCR) SARS-CoV-2 (PCR) Enterobacteriac sp PCR E. cloacae complex PCR Enterococcus sp PCR E. coli (PCR) H. influenzae (PCR) Klebsiella oxytoca PCR Klebsiella pneumoniae List. monocytogenes PCR N. meningitidis (PCR) Proteus species (PCR) Serratia marcescens PCR Staphylococcus sp PCR Staph aureus (PCR) mecA-Methicil Res Gene Streptococcus sp PCR Group A Strep (PCR) Strep agalactiae (PCR) Strep pneumoniae (PCR) P. aeruginosa (PCR) Gil/B-Vanco Res Genes KPC-Carbap Res Gene PCR PFSH Medical History (Updated 12/25/21 @ 04:21 by NUBIA Sood) BPH (benign prostatic hyperplasia) Coronary artery disease Dyslipidemia Hypertension Surgical History History of back surgery Hx of CABG Family History (Updated 12/25/21 @ 04:21 by NUBIA Sood) Mother Coronary artery disease Father Cancer Social History household members: spouse Smoking Status: Never smoker Assessment & Plan Assessment & Plan narrative: 1. Acute right ankle septic arthritis, present on admission -status post irrigation and debridement on 12/[address] Miranda -ankle aspirate and blood culture growing Staph aureus -continue IV vancomycin pending final sensitivities -PICC line -care management to set up home infusion therapy 2. Chronic atrial fibrillation -Continue apixaban and metoprolol -scheduled for ablation on February 26 it will have to be postponed 3. History of CAD -continue low-dose aspirin and atorvastatin per home routine 4. BPH -continue tamsulosin Time Spent With Patient Critical Care time: I spent a total of [] minutes of critical care time on this patient's care today ; this time is exclusive of procedural time.
--- NOTE | 2021-12-25 20:04 | PM.PNPO.1 ---
Subjective Subjective Date Patient Seen: 12/25/21 Time Patient Seen: 20:05 Interval history: He notes he is doing okay he still has ongoing pain into his right ankle. He did mobilize with physical therapy day today but had some difficulty partial weight-bearing on the right leg. Exam Vital Signs (past 8 hours): - 12/25/21 16:29 Temperature 98.4 F Pulse Rate 66 Respiratory Rate 16 Blood Pressure 111/55 L Pulse Oximetry 98 Oxygen Flow Rate 0 Oxygen Delivery Method Room Air Oxygen Flow Rate 0 Narrative Exam Narrative: Dressings intact, stick creased range of motion in his right ankle, he has adequate capillary refill in his foot, his calf to soft is alert and oriented Objective Labs Result Diagrams: 12/25/21 05:47 12/25/21 05:47 Labs: Laboratory Results - last 24 hr 12/24/21 12/24/21 12/24/21 19:09 20:00 20:06 WBC RBC Hgb Hct MCV MCH MCHC RDW Plt Count Neut % (Auto) Lymph % (Auto) [place] % (Auto) Eos % (Auto) Baso % (Auto) Neut # (Auto) Lymph # (Auto) [place] # (Auto) Eos # (Auto) Baso # (Auto) Sodium Potassium Chloride Carbon Dioxide BUN Creatinine Estimated GFR BUN/Creatinine Ratio Glucose Calcium C-Reactive Protein 13.9 H Fluid Color Light brown Fluid Appearance [place] 75084 Fld Tot Nucleated Cell 218258 Fluid Polynuclear WBCs 93 Fluid Mononuclear WBCs 7 Fluid Eosinophils Not Reportable Fluid Other Cells Not Reportable Body Fluid Clot No clots present A. baumannii (PCR) Yesi albicans (PCR) C. glabrata (PCR) C. krusei (PCR) C. parapsilosis (PCR) C. tropicalis (PCR) SARS-CoV-2 (PCR) Negative Enterobacteriac sp PCR E. cloacae complex PCR Enterococcus sp PCR E. coli (PCR) H. influenzae (PCR) Klebsiella oxytoca PCR Klebsiella pneumoniae List. monocytogenes PCR N. meningitidis (PCR) Proteus species (PCR) Serratia marcescens PCR Staphylococcus sp PCR Staph aureus (PCR) mecA-Methicil Res Gene Streptococcus sp PCR Group A Strep (PCR) Strep agalactiae (PCR) Strep pneumoniae (PCR) P. aeruginosa (PCR) Gil/B-Vanco Res Genes KPC-Carbap Res Gene PCR 12/24/21 12/25/21 12/25/21 20:31 05:47 05:47 WBC 17.7 H RBC 4.56 Hgb 14.4 Hct 41.4 MCV 90.8 MCH 31.6 MCHC 34.8 RDW 13.0 Plt Count 148 L Neut % (Auto) 89.8 H Lymph % (Auto) 4.1 L [place] % (Auto) 5.9 Eos % (Auto) 0.0 L Baso % (Auto) 0.2 Neut # (Auto) 60550 H Lymph # (Auto) 700 L [place] # (Auto) 1000 H Eos # (Auto) 0 Baso # (Auto) 0 Sodium 135 L Potassium 4.6 Chloride 99 Carbon Dioxide 29 BUN 16 Creatinine 0.83 Estimated GFR > 60 BUN/Creatinine Ratio 19.3 Glucose 153 H Calcium 9.0 C-Reactive Protein Fluid Color Fluid Appearance Fluid RBC Fld Tot Nucleated Cell Fluid Polynuclear WBCs Fluid Mononuclear WBCs Fluid Eosinophils Fluid Other Cells Body Fluid Clot A. baumannii (PCR) Not detected Yesi albicans (PCR) Not detected C. glabrata (PCR) Not detected C. krusei (PCR) Not detected C. parapsilosis (PCR) Not detected C. tropicalis (PCR) Not detected SARS-CoV-2 (PCR) Enterobacteriac sp PCR Not detected E. cloacae complex PCR Not detected Enterococcus sp PCR Not detected E. coli (PCR) Not detected H. influenzae (PCR) Not detected Klebsiella oxytoca PCR Not detected Klebsiella pneumoniae Not detected List. monocytogenes PCR Not detected N. meningitidis (PCR) Not detected Proteus species (PCR) Not detected Serratia marcescens PCR Not detected Staphylococcus sp PCR Detected H Staph aureus (PCR) Detected H mecA-Methicil Res Gene Not detected Streptococcus sp PCR Not detected Group A Strep (PCR) Not detected Strep agalactiae (PCR) Not detected Strep pneumoniae (PCR) Not detected P. aeruginosa (PCR) Not detected Gil/B-Vanco Res Genes Not Reportable KPC-Carbap Res Gene PCR Not Reportable PFSH Medical History (Updated 12/25/21 @ 04:21 by NUBIA Sood) BPH (benign prostatic hyperplasia) Coronary artery disease Dyslipidemia Hypertension Surgical History History of back surgery Hx of CABG Family History (Updated 12[facility]25/21 @ 04:21 [facility] Mother Coronary artery disease Father Cancer Social History household members: spouse Smoking Status: Never smoker Assessment & Plan Post-op Postoperative Procedures: Procedures Operation Date: 12/24/21 20:30 Actual Procedure Side Surgeon p Right Ankle Arthroscopy with Irrigation & Debridement Right Leonilabryanna Miranda MD Postoperative day: 1 Postoperative status: doing well Postoperative status narrative: He is doing reasonably well. His cultures are growing Gram-positive cocci which is likely a staph aureus. Sensitivities are pending. He still has an elevated white count. Postoperative plan narrative: Continue IV antibiotics. Continue to work with physical therapy. I spoke to Infectious Disease doctor Marco who felt he may need at least 3 weeks of IV antibiotics. We will checked the sensitivities of his cultures. I anticipate he will likely need a PICC line and continuing outpatient IV antibiotics. I would like him to follow-up with me at [facility] orthopedic at discharge and also with Dr. Lara at [facility] Infectious Disease. Time Spent With Patient Time with patient: less than 15 minutes
[2021-12-25] MEDS: METOPROLOL IR 25 MG TABLET 12.5 MG PO (20:21)
[2021-12-25] MEDS: APIXABAN 5 MG TABLET PO (20:22)
[2021-12-25] MEDS: ATORVASTATIN 20 MG TABLET 40 MG PO (20:22)
[2021-12-26 01:00] VITALS: BP 126/73; PULSE 83; RESP 18; TEMP 37.2; O2SAT 95
[2021-12-26] MEDS: VANCOMYCIN 1,000 MG/200 ML PIGGYBACK 200 MG IV (01:13)
[2021-12-26] MEDS: OXYCODONE IR 5 MG TABLET PO ×5 (01:13→22:51)
[2021-12-26 06:05] LABS: Add Manual Diff / Slide Review NO; Basophils Absolute Auto 0 /uL (0-100); Basophils Percent Auto 0.3 % (0-2); Eosinophils Absolute Auto 0 /uL (0-450); Hematocrit 38.8 % (41-53); Hemoglobin 13.5 g/dL (13.5-17.5); Lymphocytes Absolute Auto 1400 /uL (1100-4500); Lymphocytes Percent Auto 10.2 % (25-40); Mean Corpuscular HGB Conc 34.8 % (30-36); Mean Corpuscular Hemoglobin 31.6 PG (26-34); Mean Corpuscular Volume 90.9 fL (80-100); Monocytes Absolute Auto 1200 /uL (0-900); Monocytes Percent Auto 8.7 % (3-14); Neutrophils Absolute Auto 11000 /uL (1500-7000); Neutrophils Percent Auto 80.8 % (50-75); Platelet Count 146 X10^3/uL (150-400); Red Blood Cell Count 4.27 X10^6/uL (4.5-5.9); Red Cell Distribution Width 12.7 % (11.6-14.8); White Blood Cell Count 13.7 X10^3/uL (4.5-11.0)
[2021-12-26 06:07] LABS: BUN Creatinine Ratio 20.9 (6-22); Blood Urea Nitrogen 19 mg/dL (9-20); Calcium 8.5 mg/dL (8.4-10.2); Carbon Dioxide 27 mmol/L (22-32); Chloride 98 mmol/L (98-107); Estimated Glomerular Filt Rate > 60 mL/min (>60); Glucose 113 mg/dL (80-110); HEMOLYSIS < 15 (0-50); Potassium 4.3 mmol/L (3.4-5.1); Sodium 135 mmol/L (137-145)
--- NOTE | 2021-12-26 08:09 | P.PN_ITS ---
Subjective Subjective Date Patient Seen: 12/26/21 Time Patient Seen: 08:09 Interval history: Patient is doing well this morning. He denies any fevers, chills, night sweats. His right ankle pain is moderate but well controlled with oxycodone. He denies numbness or tingling, but notes the bandage is making him uncomfortable. Exam Vital Signs (past 8 hours): - 12/26/21 01:00 Temperature 99.0 F Pulse Rate 83 Respiratory Rate 18 Blood Pressure 126/73 Pulse Oximetry 95 Oxygen Flow Rate 0 Oxygen Delivery Method Room Air Oxygen Flow Rate 0 Narrative Exam Narrative: Pleasant 71-year-old male, resting comfortably in bed, no acute distress. Dressings are saturated, Hemovac appears to be nonfunctional. Hemovac was removed today and new dressings were applied. He is able to wiggle his toes, EHL is 5/5 sensation is mildly decreased in the 1st distal webspace, bilateral calves are soft and nontender to palpation. Objective Labs Result Diagrams: 12/26/21 05:08 12/26/21 05:08 Labs: Laboratory Results - last 24 hr 12/24/21 12/26/21 12/26/21 20:31 05:08 05:08 WBC 13.7 H RBC 4.27 L Hgb 13.5 Hct 38.8 L MCV 90.9 MCH 31.6 MCHC 34.8 RDW 12.7 Plt Count 146 L Neut % (Auto) 80.8 H Lymph % (Auto) 10.2 L [place] % (Auto) 8.7 Eos % (Auto) 0.0 L Baso % (Auto) 0.3 Neut # (Auto) 35518 H Lymph # (Auto) 1400 [place] # (Auto) 1200 H Eos # (Auto) 0 Baso # (Auto) 0 Sodium 135 L Potassium 4.3 Chloride 98 Carbon Dioxide 27 BUN 19 Creatinine 0.91 Estimated GFR > 60 BUN/Creatinine Ratio 20.9 Glucose 113 H Calcium 8.5 A. baumannii (PCR) Not detected Yesi albicans (PCR) Not detected C. glabrata (PCR) Not detected C. krusei (PCR) Not detected C. parapsilosis (PCR) Not detected C. tropicalis (PCR) Not detected Enterobacteriac sp PCR Not detected E. cloacae complex PCR Not detected Enterococcus sp PCR Not detected E. coli (PCR) Not detected H. influenzae (PCR) Not detected Klebsiella oxytoca PCR Not detected Klebsiella pneumoniae Not detected List. monocytogenes PCR Not detected N. meningitidis (PCR) Not detected Proteus species (PCR) Not detected Serratia marcescens PCR Not detected Staphylococcus sp PCR Detected H Staph aureus (PCR) Detected H mecA-Methicil Res Gene Not detected Streptococcus sp PCR Not detected Group A Strep (PCR) Not detected Strep agalactiae (PCR) Not detected Strep pneumoniae (PCR) Not detected P. aeruginosa (PCR) Not detected Gil/B-Vanco Res Genes Not Reportable KPC-Carbap Res Gene PCR Not Reportable PFSH Medical History BPH (benign prostatic hyperplasia) Coronary artery disease Dyslipidemia Hypertension Surgical History History of back surgery Hx of CABG Family History Mother Coronary artery disease Father Cancer Social History household members: spouse Smoking Status: Never smoker Assessment & Plan Post-op Postoperative Procedures: Procedures Operation Date: 12/24/21 20:30 Actual Procedure Side Surgeon p Right Ankle Arthroscopy with Irrigation & Debridement Right Leonila Miranda MD Postoperative day: 2 Postoperative status: doing well Postoperative status narrative: He is doing reasonably well. His cultures are growing Gram-positive cocci which is likely a staph aureus. Sensitivities are still pending. He still has an elevated white count. Postoperative plan narrative: -Continue IV antibiotics. -Continue to work with physical therapy, partial WB 50%. -Dr. Miranda spoke to Infectious Disease doctor Marco who felt he may need at least 3 weeks of IV antibiotics. -We will checked the sensitivities of his cultures. -I anticipate he will likely need a PICC line and continuing outpatient IV antibiotics. -Eliquis and aspirin should be sufficient for DVT prophylaxis -follow-up with Dr. Miranda at [facility] orthopedic in 10-14 days and also with Dr. Lara at [facility] Infectious Disease within 1 week.
--- NOTE | 2021-12-26 09:04 | CM.DPC ---
Addendum entered by Hilary Grace R.N. 12/26/21 15:04: LOS spoke to Jitendra @ [facility]. Jitendra spoke with pt and pt is agreeable to paying the fees for home infusions and nursing care provided by [facility]. Jitendra verbalized they would not be able to see the pt until 12/28. RN would meet the pt at the hospital. Jitendra will contact me if there is any other opening prior to . DCP to continue to follow and help expedite the process if able to. ADJ Original Note: DCP Cont: DCP faxed referral to [facility] in anticipation of home IV abx per MD notes. Hilary Grace RN/LOS
[2021-12-26] MEDS: APIXABAN 5 MG TABLET PO ×2 (09:06→22:28)
[2021-12-26] MEDS: CEFAZOLIN 2 GM/100 ML PREMIX 100 ML IV ×3 (09:06→23:42)
[2021-12-26] MEDS: TAMSULOSIN 0.4 MG CAPSULE PO (09:06)
[2021-12-26] MEDS: ASPIRIN EC 81 MG TABLET PO (09:06)
[2021-12-26] MEDS: METOPROLOL IR 25 MG TABLET 12.5 MG PO ×2 (09:07→22:29)
[2021-12-26] MEDS: polyethylene glycoL 3350 17 GM POWD.PACK PO (09:07)
[2021-12-26 09:13] VITALS: BP 130/69; PULSE 78; RESP 20; O2SAT 95
--- NOTE | 2021-12-26 09:46 | DI.RAD.S_ITS ---
PROCEDURE: XR CHEST FOR PICC 1V INDICATIONS: line placement COMPARISON: [facility], CR, XR CHEST 1V, 07/17/2020, 11:39. FINDINGS: Patient is status post median sternotomy. PICC was placed by the intravenous therapy team from the left side. Fluoroscopic spot film demonstrates the tip of PICC projecting to the area of the cavoatrial junction.. IMPRESSION: Tip of PICC projects to the area of the cavoatrial junction. Dictated by: Rose Parsons M.D. on 12/26/2021 at 10:19 Approved by: Rose Parsons M.D. on 12/26/2021 at 10:20
--- NOTE | 2021-12-26 10:38 | PT.IPTN ---
Current Diagnoses Pyogenic arthritis, unspecified (12/24/21) Pain in right ankle and joints of right foot (12/24/21) Surgery Performed Operation Date: 12/24/21 20:30 Actual Procedures p Right Ankle Arthroscopy with Irrigation & Debridement (Right) - Leonila Miranda MD Physical Therapy Treatment Note M2 PT-IP Current Condition Start: 12/25/21 08:47 Freq: NEEDED Status: Active Protocol: Document 12/25/21 10:21 AW (Rec: 12/25/21 10:46 AW [id number]) Physical Therapy Current Condition Current Condition Evaluation Date 12/25/21 Treatment Diagnosis septic ankle joint s/p I&D; impaired mobility and gait Onset Date 12/23/21 M3 PT-IP Subjective Start: 12/25/21 08:47 Freq: NEEDED Status: Active Protocol: Document 12/26/21 10:12 KS (Rec: 12/26/21 11:20 KS [id number]) Subjective Physical Therapy Visit Type Type Treatment Note Visit Start Time 10:15 Visit Stop Time 10:38 Total Visit Minutes 23 Number of OUTREACH SPECIALIST Visits 1 Physical Therapy Visit Comments Patient Comments Pt is willng to participate with PT Patient Goals Reduce pain, improve ankle mobility, return to regular activity. Therapy Pain Assessment Pain When Pain Assessed During Mobility Pain Present Pain Present Pain Reported Location right leg Scale Used did not quantify Description Throbbing,With Movement Pain Behaviors Restlessness,Wincing Pain Management Techniques Elevation,Re-positioning, Timing of Activity with Medications M4 PT-IP Mobility and Gait Start: 12/25/21 08:47 Freq: NEEDED Status: Active Protocol: Document 12/26/21 10:12 KS (Rec: 12/26/21 11:20 KS [id number]) PT-Bed Mobility Assessment Sit to Supine Sit to Supine Standby Assistance,1 Person Assistance Scooting Scooting to Edge of Bed Independent PT-Transfer Assessment Sit to and From Stand Sit to and from Stand Independent,Use of Upper Extremities Equipment Transfer Assistive Device Gait Belt,Front Wheeled Walker Orthotic/Prosthetic Devices or Brace: No Transfers Transfer Destination Bed Transfer Technique pt ambulated with FWW Transfer Ability Level of Assist Standby Assistance Comments Mobility Comments Pt exiting bathroom upon arrival and had used independently. He ambulated ~ 12 ft to bed SBA w/ FWW NWB. After brief seated rest break pt agreed to ambulate further. Able to sit<>Stand I w/ FWW, pt PWB but prefers NWB as he is unable to tolerate pain of WB through RLE. Pt ambulated additional 40 ft w/ FWW NWB RLE SBA. Good use of FWW and no LOB. Pt then got into bed SBA and perfomed quad sets, glute sets, and SLR. Discussed necessary DME and at home safety. Pt left w/ DME list and all needs in reach. Gait Assessment Gait Gait Assistance Required: Standby Assistance Distance (Feet) 40 Able to Maintain Weight Bearing Status Yes During Gait Assistive Devices Assistive Device Gait Belt,Front Wheeled Walker Orthotic/Prosthetic Devices or Brace: No Gait Deviations General Gait Pattern Antalgic,Step-to Gait Factors Limiting Gait Function Factors Limiting Gait Function Limited Range of Motion,Pain Comments Gait Comments See mobility comments for details. Stair Climbing Assessment Comments Stair Climbing Comments Not assessed. Pt will not need to negotiate stairs at home. PT-Balance Assessment Sitting Balance and Reactions Static Sitting Balance Ability Normal Dynamic Sitting Balance Ability Normal Standing Balance and Reactions Static Standing Balance Ability Good Dynamic Standing Balance Ability Good Device Used FWW Comments Other Balance Tests/Deviations/Treatment Pt able to maintain NWB RLE : with FWW M5 PT-IP Objective Assessments Start: 12/25/21 08:47 Freq: NEEDED Status: Active Protocol: Document 12/25/21 10:21 AW (Rec: 12/25/21 11:01 AW [id number]) Orientation Orientation/Cognition Level of Alertness Alert Orientation Age,Day of Week,Place, Situation Language Function Ability No Deficits Noted Safety Awareness Understands Safety Issues Gross Range of Motion Lower Extremity ROM Assessment Right Impaired Impairments Right ankle in bulky dressing, continues to feel tight and stiff. Strength Upper Extremity Strength Assessment Within Functional Limits Lower Extremity Strength Assessment Right Impaired Ankle NT due to pain Comments Strength Comments LLE grossly 5/5 Sensation Assessment Sensation Gross Sensation WNL Other Assessments Other Other Assessments Pt's right ankle is wrapped and not inspected visually at this encounter but pt does complain of swollen and painful feeling. M6 PT-IP Treatment Start: 12/25/21 08:47 Freq: NEEDED Status: Active Protocol: Document 12/26/21 10:12 KS (Rec: 12/26/21 11:20 KS [id number]) Physical Therapy Treatment Exercises Exercises Ankle Pumps,Gluteal Sets,Quad Sets,Heel Slides,Straight Leg Raises Education Education Provided Weight Bearing Status,Safety Other Treatments Other Treatment Performed Provided DME list so pt can acquire FWW and possibly knee scooter. M7 PT-IP Assessment and Plan Start: 12/25/21 08:47 Freq: NEEDED Status: Active Protocol: Document 12/26/21 10:12 KS (Rec: 12/26/21 11:20 KS [id number]) PT Summary Assessment and Plan Potential Rehabilitation Potential Excellent Summary Impairments Pain,ROM,Strength,Balance, Transfers,Gait Progress Towards Goals Progressing Toward Goals Assessment Summary Pt progressing well w/ mobility. Able to transfer and ambulate w/ FWW SBA. Limited by pain in RLE but able to maintain NWB as PWB is currently too painful. Pt active at baseline and agreeable to LE exercises. He has assistance at home as well as PT neighbor/friend he is close with. He plans to go home and will benefit from OPPT when appropriate. List provided for DME for knee scooter or FWW, possibly crutches. Pt feels he can acquire but I will check back to confirm. Goals Bed Mobility Goal Independent Transfer Goal Independent,Front Wheeled Walker Gait Goal Independent,Front Wheel Walker Gait Distance 75 Other Goals - progress gait and transfers to independent with axillary crutches or knee scooter Days to Meet Goals 3 Frequency of Treatment Frequency Of Treatment Once a Day Treatment Plan Physical Therapy Treatment Plan Bed Mobility Training,Transfer Training,Gait Training, Therapeutic Exercise,Balance Retraining,Post Op Education, Discharge Planning,Hot or Cold Pack Other Recommendations and Next Treatment assess mobility with crutches Focus or possibly knee scooter Weight Bearing Status Weight Bearing Status Partial Weight Bearing Allowed Weight Bearing Amount (enter % PWB RLE (pt prefers to do NWB) or #) (%) Recommendations To Nursing Amount of Assist Needed 1 Person Assist Discharge Recommendations PT Discharge Recommendations Home with Assistance, Outpatient PT Equipment Needed for Home Before FWW if unsafe with crutches Discharge Transportation Needs at Discharge Private Vehicle
[2021-12-26 12:01] VITALS: BP 127/77; PULSE 74; RESP 20; TEMP 36.6; O2SAT 98
--- NOTE | 2021-12-26 12:24 | PC.NURSE ---
Addendum entered by Tere Durbin R.N. 12/26/21 17:57: Oxycodone helpful with pain and temp better. We have his leg elevated on a couch pillow with pillow case on and patient is comfortable. Addendum entered by Tere Durbin R.N. 12/26/21 17:11: Sha SHOEMAKER for Ortho up to see patients r.ankle as it has been bleeding. She stapled two areas on the distal end of the small incision, put antibiotic gauze to area, abd pad, kurlex, and an myranda wrap. R.leg is elevated above his chin, and he will not get out of bed tonight as we are letting his leg rest. Patient also had a temp of 100.3 and tylenol given. Oxycodone also given to patient, he has had this three times today. Addendum entered by Tere Durbin R.N. 12/26/21 15:25: Patients dressing to r.ankle was bleeding, steri strips applied to small area of bleeding and not helpful. Pressure dressing applied. He is resting comfortably now and oxycodone given earlier. Original Note: Assess- Patient is alert and oriented x4, he has a new picc line to his left upper extremity. IV antibiotic given this morning and patient had oxycodone around 0930. He will be due for more soon. CMS intact to r. leg but patient does have 2+edema. Dressing changed this morning with SAHARA and real estate agency licensee RN. Ambulating with walker and tolerating well.
--- NOTE | 2021-12-26 16:43 | P.PN_ITS ---
Subjective Subjective Date Patient Seen: 12/26/21 Interval history: Patient is status post right ankle irrigation septic arthritis.? Ankle aspirate and blood culture growing sensitive Staph aureus.? Patient had significant bleeding from the ankle incision this afternoon. Ortho evaluated and put in 2 josee and compressive dressing at bedside. He is on Eliquis and low-dose aspirin. Exam Vital Signs (past 8 hours): - 12/26/21 09:13 12/26/21 12:01 Temperature 97.8 F Pulse Rate 78 74 Respiratory Rate 20 20 Blood Pressure 130/69 127/77 Pulse Oximetry 95 98 Oxygen Flow Rate 0 0 Oxygen Delivery Method Room Air Oxygen Flow Rate 0 Narrative Exam Narrative: General: Alert and cooperative, NAD Objective Labs Result Diagrams: 12/26/21 05:08 12/26/21 05:08 Labs: Laboratory Results - last 24 hr 12/26/21 12/26/21 05:08 05:08 WBC 13.7 H RBC 4.27 L Hgb 13.5 Hct 38.8 L MCV 90.9 MCH 31.6 MCHC 34.8 RDW 12.7 Plt Count 146 L Neut % (Auto) 80.8 H Lymph % (Auto) 10.2 L Norman % (Auto) 8.7 Eos % (Auto) 0.0 L Baso % (Auto) 0.3 Neut # (Auto) 59909 H Lymph # (Auto) 1400 Norman # (Auto) 1200 H Eos # (Auto) 0 Baso # (Auto) 0 Sodium 135 L Potassium 4.3 Chloride 98 Carbon Dioxide 27 BUN 19 Creatinine 0.91 Estimated GFR > 60 BUN/Creatinine Ratio 20.9 Glucose 113 H Calcium 8.5 PFSH Medical History BPH (benign prostatic hyperplasia) Coronary artery disease Dyslipidemia Hypertension Surgical History History of back surgery Hx of CABG Family History Mother Coronary artery disease Father Cancer Social History household members: spouse Smoking Status: Never smoker Assessment & Plan Assessment & Plan narrative: 1. Acute right ankle septic arthritis, present on admission -status post irrigation and debridement on 12/[address] Miranda -ankle aspirate and blood culture growing Staph aureus -start cefazolin 2 g IV q.8 hours, discontinued vancomycin 12/26 -PICC line LUE placed 12/26 -care management to set up home infusion therapy for prolonged duration IV antibiotic therapy -ortho note Dr. Miranda: I would like him to follow-up with me at [facility] orthopedic at discharge and also with Dr. Lara at [facility] Infectious Disease. 2. Chronic atrial fibrillation -Continue apixaban and metoprolol -scheduled for ablation on February 26 it will have to be postponed 3.? History of CAD -continue low-dose aspirin and atorvastatin per home routine 4.? BPH -continue tamsulosin Patient medically stable and can discharge home tomorrow once infusion therapy arranged. Time Spent With Patient Critical Care time: I spent a total of [] minutes of critical care time on this patient's care today; this time is exclusive of procedural time.
[2021-12-26 16:45] VITALS: TEMP 37.9
[2021-12-26 16:50] VITALS: TEMP 37.9
[2021-12-26] MEDS: ACETAMINOPHEN 325 MG TABLET 650 MG PO (16:50)
--- NOTE | 2021-12-26 21:26 | DI.ECHO.S_ITS ---
[place] +---------+ [facility] +---------+ : : [address] : : : : [id number] : : : : Phone: [phone] Echocardiogram Report + + :Name: VETO HORTON Study Date: 12/27/2021 Height: 74 in : :[facility] ReadingLocation: Weight: 209 lb : : Gender: Male BSA: 2.2 m2 : :: 1950 Age: 71 yrs BP: 114/64 mmHg: :Reason For Study: POSTIVE STAPH BLOOD/ WOUND CULTURE : :Ordering Physician: ENZO, : :RINA Performed By: Yasmin Silva : :Referring: RINA GIRALDO : + + Interpretation Summary The patient was in atrial fibrillation with heart rates between 68-81 bpm during the exam. Normotensive during exam There is mild concentric left ventricular hypertrophy. The ejection fraction is estimated to be 60-65%. Diastolic function could not be accurately assessed due to atrial fibrillation. The right ventricle is borderline dilated. Echodensity in the RA and RV suggestive of pacemaker, AICD or temporary pacemaker wire. The left atrium is mildly dilated. There is mild mitral regurgitation. There is mild to moderate tricuspid regurgitation. The right ventricular systolic pressure is estimated to be at least 30 mmHg based on an estimated right atrial pressure of 3 mm Hg. The IVC is of normal diameter and collapses greater than 50% with a sniff. This suggests a low right atrial pressure of 3 mm Hg. No overt valvular vegetations No prior study for comparison. Procedure: A two-dimensional transthoracic echocardiogram with color flow and Doppler was performed. The study quality was technically adequate. There is no prior echocardiogram noted for this patient. The patient was in atrial fibrillation with heart rates between 68-81 bpm during the exam. Normotensive during exam. Left Ventricle: The left ventricle is normal in size. There is mild concentric left ventricular hypertrophy. The ejection fraction is estimated to be 60-65%. Diastolic function could not be accurately assessed due to atrial fibrillation. Right Ventricle: The right ventricle is borderline dilated. Echodensity in the RA and RV suggestive of pacemaker, AICD or temporary pacemaker wire. The right ventricular systolic function is normal. Atria: The left atrium is mildly dilated. Right atrial size is normal. There is no Doppler evidence for an interatrial shunt. Mitral Valve: The mitral valve is normal in structure and function. There is mild mitral regurgitation. Aortic Valve: The aortic valve is trileaflet. The aortic valve opens well. There is no aortic valve stenosis. There is trace aortic regurgitation. Tricuspid Valve: The tricuspid valve is normal in structure and function. There is mild to moderate tricuspid regurgitation. The right ventricular systolic pressure is estimated to be at least 30 mmHg based on an estimated right atrial pressure of 3 mm Hg. Pulmonic Valve: The pulmonic valve leaflets are thin and pliable; valve motion is normal. There is mild pulmonic regurgitation. Great Vessels: The aortic root is normal size. The ascending aorta is at the upper limits of normal in size. The IVC is of normal diameter and collapses greater than 50% with a sniff. This suggests a low right atrial pressure of 3 mm Hg. Pericardium/ Pleura There is no pericardial effusion. There is no pleural effusion. MMode/2D Measurements & Calculations LVIDd: 4.8 cm LVOT diam: 2.0 cm LVIDs: 3.2 cm Ao root diam: 3.9 cm FS: 32.9 % asc Aorta Diam: 3.7 cm IVSd: 1.1 cm Ao Arch Diam (Prox Trans): 3.2 cm LVPWd: 1.0 cm LV xie. diameter/BSA (cm/m^2): 2.1 LV sys. diameter/BSA (cm/m^2): 1.4 LA A2 area: 27.6 cm2 RA long axis: 6.2 cm LA A4 area: 23.8 cm2 RA area: 21.3 cm2 LA length (vol): 6.7 cm RA vol: 62.9 ml LA vol: 82.7 ml RA : 28.4 ml/m2 LA vol index: 37.4 ml/m2 IVC diam: 1.8 cm RVD1 (basal): 4.2 cm RVD2 (mid): 3.5 cm TAPSE: 1.7 cm Doppler Measurements & Calculations Ao V2 max: 121.5 cm/sec LVOT Max Alexander: 101.0 cm/sec Ao V2 mean: 85.6 cm/sec LV V1 max P.1 mmHg Ao max P.9 mmHg LV V1 VTI: 18.2 cm Ao mean P.3 mmHg GEOFF(I,D): 2.7 cm2 Ao V2 VTI: 21.5 cm GEOFF(V,D): 2.6 cm2 sev ratio: 0.85 GEOFF indexed to BSA (cm^2/m^2): 1.2 MV E max alexander: 116.0 cm/sec TR max alexander: 261.9 cm/sec MV A max alexander: 3.2 cm/sec TR max P.4 mmHg MV E/A: 36.4 PA V2 max: 85.0 cm/sec Med Peak E' Alexander: 11.7 cm/sec PA V2 mean: 52.3 cm/sec E/E' med: 9.9 PA mean P.3 mmHg Lat Peak E' Alexander: 13.2 cm/sec PA pr(Accel): 24.2 mmHg E/E' lat: 8.8 E/e' average: 9.3 MV dec time: 0.15 sec SV(LVOT): 57.1 ml Reading Physician:KYLIE
[2021-12-26] MEDS: ATORVASTATIN 20 MG TABLET 40 MG PO (22:28)
[2021-12-27] VITALS (7 sets, daily range): BP systolic 110–116; BP diastolic 64–79; PULSE 62–90; RESP 16–18; TEMP 36.5–37.8; O2SAT 94–98
[2021-12-27] MEDS: TAMSULOSIN 0.4 MG CAPSULE PO (09:09)
[2021-12-27] MEDS: METOPROLOL IR 25 MG TABLET 12.5 MG PO ×2 (09:13→20:33)
[2021-12-27] MEDS: CEFAZOLIN 2 GM/100 ML PREMIX 100 ML IV ×2 (09:13→16:55)
[2021-12-27] MEDS: polyethylene glycoL 3350 17 GM POWD.PACK PO (09:22)
[2021-12-27] MEDS: ASPIRIN EC 81 MG TABLET PO (09:23)
--- NOTE | 2021-12-27 10:30 | CM.DPC ---
DCP Cont: DCP spoke with [facility]. They are able to send out RN tomorrow (12/28) to the hospital between [phone] for teaching with the patient. Per MD today in rounds, still awaiting cultures. Once available, pt able to discharge home. Dr. Dumont to contact MD today to discuss pt case per [facility]. DCP to continue to follow. Hilary Grace, RN/DCP
--- NOTE | 2021-12-27 11:00 | PT.IPTN ---
Current Diagnoses Pyogenic arthritis, unspecified (12/24/21) Pain in right ankle and joints of right foot (12/24/21) Surgery Performed Operation Date: 12/24/21 20:30 Actual Procedures p Right Ankle Arthroscopy with Irrigation & Debridement (Right) - Leonila Miranda MD Physical Therapy Treatment Note M2 PT-IP Current Condition Start: 12/25/21 08:47 Freq: NEEDED Status: Active Protocol: Document 12/25/21 10:21 AW (Rec: 12/25/21 10:46 AW [id number]) Physical Therapy Current Condition Current Condition Evaluation Date 12/25/21 Treatment Diagnosis septic ankle joint s/p I&D; impaired mobility and gait Onset Date 12/23/21 M3 PT-IP Subjective Start: 12/25/21 08:47 Freq: NEEDED Status: Active Protocol: Document 12/27/21 10:40 KS (Rec: 12/27/21 12:27 KS [id number]) Subjective Physical Therapy Visit Type Type Treatment Note Visit Start Time 10:40 Visit Stop Time 11:00 Total Visit Minutes 20 Number of 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 Therapy Pain Assessment Location right leg Intensity 7 Scale Used Numeric (0 - 10) Description Throbbing,With Movement Pain Behaviors Restlessness,Wincing Pain Management Techniques Elevation,Modification of Treatment,Re-positioning M4 PT-IP Mobility and Gait Start: 12/25/21 08:47 Freq: NEEDED Status: Active Protocol: Document 12/27/21 10:40 KS (Rec: 12/27/21 12:27 KS [id number]) PT-Bed Mobility Assessment Supine to Sit Supine to Sit Standby Assistance Scooting Scooting to Edge of Bed Independent PT-Transfer Assessment Sit to and From Stand Sit to and from Stand Independent,Standby Assistance ,Use of Upper Extremities Equipment Transfer Assistive Device Gait Belt,Front Wheeled Walker Orthotic/Prosthetic Devices or Brace: No Transfers Transfer Destination Bed,Toilet Transfer Technique pt ambulated with FWW Transfer Ability Level of Assist Standby Assistance Comments Mobility Comments Pt in bed upon arrival and agreeable to ambulate. SBA for bed mobility and sit<>stand w / FWW. Pt c/o 7/10 throbbing pain in R ankle when standing and continues to choose NWB over PWB due to pain. Pt ambulated ~60 ft w/ FWW SBA to CGA w/ heavy use of BUE and became fatigued and slightly lightheaded and took seated break in chair for transport back to room. Pt then transferred to bed and then ambulate to toilet w/ FWW SBA and left w/ call light and RN aware. Lightheadedness resolved after short seated rest break and pt states it is because of the pain while hes standing. Gait Assessment Gait Gait Assistance Required: Standby Assistance Distance (Feet) 60 Able to Maintain Weight Bearing Status Yes During Gait Assistive Devices Assistive Device Gait Belt,Front Wheeled Walker Orthotic/Prosthetic Devices or Brace: No Gait Deviations General Gait Pattern Antalgic,Step-to Gait Factors Limiting Gait Function Factors Limiting Gait Function Limited Range of Motion,Pain Comments Gait Comments See mobility comments for details. Stair Climbing Assessment Comments Stair Climbing Comments Not assessed. Pt will not need to negotiate stairs at home. PT-Balance Assessment Sitting Balance and Reactions Static Sitting Balance Ability Normal Dynamic Sitting Balance Ability Normal Standing Balance and Reactions Static Standing Balance Ability Good Dynamic Standing Balance Ability Good Device Used FWW Comments Other Balance Tests/Deviations/Treatment Pt able to maintain NWB RLE : with FWW M5 PT-IP Objective Assessments Start: 12/25/21 08:47 Freq: NEEDED Status: Active Protocol: Document 12/25/21 10:21 AW (Rec: 12/25/21 11:01 AW [id number]) Orientation Orientation/Cognition Level of Alertness Alert Orientation Age,Day of Week,Place, Situation Language Function Ability No Deficits Noted Safety Awareness Understands Safety Issues Gross Range of Motion Lower Extremity ROM Assessment Right Impaired Impairments Right ankle in bulky dressing, continues to feel tight and stiff. Strength Upper Extremity Strength Assessment Within Functional Limits Lower Extremity Strength Assessment Right Impaired Ankle NT due to pain Comments Strength Comments LLE grossly 5/5 Sensation Assessment Sensation Gross Sensation WNL Other Assessments Other Other Assessments Pt's right ankle is wrapped and not inspected visually at this encounter but pt does complain of swollen and painful feeling. M6 PT-IP Treatment Start: 12/25/21 08:47 Freq: NEEDED Status: Active Protocol: Document 12/27/21 10:40 KS (Rec: 12/27/21 12:27 KS [id number]) Physical Therapy Treatment Education Education Provided Weight Bearing Status,Safety Other Treatments Other Treatment Performed Confirmed pt has acquired FWW and is trying for knee scooter . M7 PT-IP Assessment and Plan Start: 12/25/21 08:47 Freq: NEEDED Status: Active Protocol: Document 12/27/21 10:40 KS (Rec: 12/27/21 12:27 KS [id number]) PT Summary Assessment and Plan Potential Rehabilitation Potential Excellent Summary Impairments Pain,ROM,Strength,Balance, Transfers,Gait Progress Towards Goals Progressing Toward Goals Assessment Summary Pt limited by pain and lightheadedness, but able to ambulate ~60 ft w/ FWW SBA to CGA w/ heavy use of BUE to maintain NWB as PWB is still too painful. No stairs at home , pt feels capable of returning home w/ support. Has acquired FWW and is workign to acquire knee scooter. Goals Bed Mobility Goal Independent Transfer Goal Independent,Front Wheeled Walker Gait Goal Independent,Front Wheel Walker Gait Distance 75 Other Goals - progress gait and transfers to independent with axillary crutches or knee scooter Days to Meet Goals 3 Frequency of Treatment Frequency Of Treatment Once a Day Treatment Plan Physical Therapy Treatment Plan Bed Mobility Training,Transfer Training,Gait Training, Therapeutic Exercise,Balance Retraining,Post Op Education, Discharge Planning,Hot or Cold Pack Other Recommendations and Next Treatment assess mobility with knee Focus scooter Weight Bearing Status Weight Bearing Status Partial Weight Bearing Allowed Weight Bearing Amount (enter % PWB RLE (pt prefers to do NWB) or #) (%) Recommendations To Nursing Amount of Assist Needed 1 Person Assist Discharge Recommendations PT Discharge Recommendations Home with Assistance, Outpatient PT Transportation Needs at Discharge Private Vehicle
[2021-12-27] MEDS: ACETAMINOPHEN 325 MG TABLET 650 MG PO ×2 (11:10→19:14)
--- NOTE | 2021-12-27 12:25 | PM.PN.1 ---
Subjective Subjective Interval history: Patient reports improvement of right ankle pain and ROM. Exam Vital Signs (past 8 hours): - 12/27/21 06:00 12/27/21 11:29 Temperature 97.8 F 98.4 F Pulse Rate 82 62 Respiratory Rate 16 16 Blood Pressure 110/79 116/71 Pulse Oximetry 98 97 Oxygen Flow Rate 0 0 Oxygen Delivery Method Room Air Oxygen Flow Rate 0 Const Other: Patient laying in bed comfortably upon my entering the room, in no apparent acute distress Eyes Other: No scleral icterus appreciated Resp Other: Clear to auscultation bilaterally Cardio Other: RRR, S1 and S2 heart sounds normal, no extra heart sounds or murmurs appreciated GI Other: Soft, non-distended, non-tender, bowel sounds present Skin Other: No grossly abnormal skin lesions noted Extrem Other: Right ankle wrap bandage appreciated, with limited passive/active ROM on the right due to pain, and palpable dorsalis pedis pulses bilaterally Objective Labs Result Diagrams: 12/26/21 05:08 12/26/21 05:08 [facility] Medical History BPH (benign prostatic hyperplasia) Coronary artery disease Dyslipidemia Hypertension Surgical History History of back surgery Hx of CABG Family History Mother Coronary artery disease Father Cancer Social History household members: spouse Smoking Status: Never smoker Assessment & Plan Assessment & Plan narrative: 1. Acute right ankle septic arthritis, present on admission, improving -status post irrigation and debridement on 12/[address] Miranda -ankle aspirate and blood culture growing MSSA, along with MSSA bacteremia -start cefazolin 2 g IV q.8 hours, discontinued vancomycin 12/26 -PICC line LUE placed 12/26, however, blood cultures from 12/24 positive -if there is no growth on blood cultures from 12/26 for 48 hrs, than can keep PICC -care management to set up home infusion therapy for prolonged duration IV antibiotic therapy -ortho note Dr. Miranda: I would like him to follow-up with me at [facility]opedic at discharge and also with Dr. Lara at [facility] Infectious Disease. 2. Chronic atrial fibrillation -Continue apixaban and metoprolol -will hold apixaban on 12/27 for 24 hrs due to extra bleeding from right ankle site -scheduled for ablation on February 26 it will have to be postponed 3.? History of CAD -continue low-dose aspirin and atorvastatin per home routine 4.? BPH -continue tamsulosin Patient medically stable and can discharge home tomorrow once infusion therapy arranged. I confirm that the patient's advance care plan is present, code status is documented and listed in the patient's medical record. I have utilized all available immediate resources to obtain, update, or review the patient's current medications. Time Spent With Patient Critical Care time: I spent a total of [] minutes of critical care time on this patient's care today; this time is exclusive of procedural time. Quality MIPS - Admit I confirm the patient?s Advance Care Plan is present, Code status is documented, Surrogate decision maker is in patient?s record [If Yes, STOP here]: Yes
--- NOTE | 2021-12-27 16:06 | PM.PNPO.1 ---
Subjective Subjective Date Patient Seen: 12/27/21 Time Patient Seen: 16:07 Interval history: Patient states his pain is mild. Denies fever or chills. No nausea or vomiting. Exam Vital Signs (past 8 hours): - 12/27/21 11:29 Temperature 98.4 F Pulse Rate 62 Respiratory Rate 16 Blood Pressure 116/71 Pulse Oximetry 97 Oxygen Flow Rate 0 Oxygen Delivery Method Room Air Oxygen Flow Rate 0 Narrative Exam Narrative: Pleasant 71-year-old male resting comfortably in bed no apparent distress. Dressing was just changed changed so I did not remove it. Nurse notes significant decrease drainage compared to yesterday. Motor functions intact distal right lower extremity. Sensation grossly intact to light touch. Good capillary refill. Const General: cooperative and comfortable Chest Chest: normal inspection of the chest Objective Labs Result Diagrams: 12/26/21 05:08 12/26/21 05:08 [facility] Medical History BPH (benign prostatic hyperplasia) Coronary artery disease Dyslipidemia Hypertension Surgical History History of back surgery Hx of CABG Family History Mother Coronary artery disease Father Cancer Social History household members: spouse Smoking Status: Never smoker Assessment & Plan Post-op Postoperative Procedures: Procedures Operation Date: 12/24/21 20:30 Actual Procedure Side Surgeon p Right Ankle Arthroscopy with Irrigation & Debridement Right Leonila Miranda MD Postoperative day: 3 Postoperative status narrative: Status post right ankle arthroscopy with irrigation debridement septic right ankle Chronic atrial fib, history of coronary artery disease, BPH managed by internal medicine Postoperative plan narrative: Patient is on cefazolin 2 g IV Q 8 hours Care management working on setting up patient for home infusion therapy for prolonged IV antibiotic PICC line placed on December 26 however blood cultures were positive on December 24 new cultures pending, if there is no growth on blood cultures from December 26 for 48 hours then can keep PICC line. Mobilize with physical therapy partial weight-bearing, 50% right lower extremity Follow-up with Annette in [facility] after discharge home. Patient is to have consultation with Dr. Marco Bryant [facility] infectious disease Disposition likely home tomorrow once infusion therapies and ranged.
[2021-12-27] MEDS: ATORVASTATIN 20 MG TABLET 40 MG PO (20:32)
[2021-12-27] MEDS: SODIUM CHLORIDE 0.9% FLUSH 10 ML IV (20:42)
[2021-12-28 00:11] VITALS: BP 110/73; PULSE 82; RESP 16; TEMP 36.6; O2SAT 95
[2021-12-28] MEDS: CEFAZOLIN 2 GM/100 ML PREMIX 100 ML IV ×3 (00:30→16:22)
[2021-12-28] MEDS: SODIUM CHLORIDE 0.9% FLUSH 10 ML IV ×3 (00:31→09:37)
[2021-12-28] MEDS: ACETAMINOPHEN 325 MG TABLET 650 MG PO ×3 (02:22→20:11)
--- NOTE | 2021-12-28 04:28 | PC.NURSE ---
Diaphoretic soaked gown & beddings. Total bed changed, up to the bathroom voided no BM. Will monitor.
[2021-12-28 06:20] VITALS: BP 127/74; PULSE 84; RESP 16; TEMP 36.6; O2SAT 98
[2021-12-28 06:46] LABS: Add Manual Diff / Slide Review NO; Basophils Absolute Auto 100 /uL (0-100); Basophils Percent Auto 0.6 % (0-2); Eosinophils Absolute Auto 0 /uL (0-450); Eosinophils Percent Auto 0.5 % (2-4); Hematocrit 37.4 % (41-53); Lymphocytes Absolute Auto 1200 /uL (1100-4500); Mean Corpuscular HGB Conc 34.8 % (30-36); Mean Corpuscular Hemoglobin 31.6 PG (26-34); Mean Corpuscular Volume 90.9 fL (80-100); Monocytes Absolute Auto 1000 /uL (0-900); Monocytes Percent Auto 10.9 % (3-14); Neutrophils Absolute Auto 6600 /uL (1500-7000); Platelet Count 221 X10^3/uL (150-400); Red Blood Cell Count 4.11 X10^6/uL (4.5-5.9); Red Cell Distribution Width 12.7 % (11.6-14.8); White Blood Cell Count 8.9 X10^3/uL (4.5-11.0)
[2021-12-28 06:53] LABS: BUN Creatinine Ratio 27.5 (6-22); Blood Urea Nitrogen 19 mg/dL (9-20); Calcium 8.8 mg/dL (8.4-10.2); Carbon Dioxide 30 mmol/L (22-32); Chloride 100 mmol/L (98-107); Estimated Glomerular Filt Rate > 60 mL/min (>60); Glucose 123 mg/dL (80-110); HEMOLYSIS < 15 (0-50); Magnesium 2.4 mg/dL (1.6-2.3); Potassium 4.1 mmol/L (3.4-5.1); Sodium 137 mmol/L (137-145)
--- NOTE | 2021-12-28 07:58 | DI.RAD.S_ITS ---
PROCEDURE: XR CHEST 1V INDICATIONS: To evaluate PICC position, PICC might have moved TECHNIQUE: One view of the chest was acquired. COMPARISON: [facility], ANGELIQUE, XR CHEST FOR PICC 1V, 12/26/2021, 9:56. [facility], CR, XR CHEST 1V, 07/17/2020, 11:39. FINDINGS: Surgical changes and devices: Left-sided PICC with the catheter tip projecting in the region of the lower 3rd of the SVC. This does not appear significantly changed. Post median sternotomy and CABG. Lungs and pleura: Lungs appear clear. No pleural effusions or pneumothorax. Mediastinum: Mediastinal contours appear unchanged. Heart size is normal. Bones and chest wall: No suspicious bony lesions. Overlying soft tissues appear unremarkable. IMPRESSION: Left-sided PICC with the catheter tip projecting at the region of the lower 3rd of the SVC in satisfactory position. Tip location does not appear significantly changed accounting for differences in positioning. Dictated by: Hadley Mart M.D. on 12/28/2021 at 9:33 Approved by: Hadley Mart M.D. on 12/28/2021 at 9:35
[2021-12-28 08:12] VITALS: BP 105/66; PULSE 76; RESP 18; TEMP 36.6; O2SAT 97
[2021-12-28] MEDS: DOCUSATE 100 MG CAPSULE 200 MG PO ×2 (09:37→20:11)
[2021-12-28] MEDS: METOPROLOL IR 25 MG TABLET 12.5 MG PO ×2 (09:37→20:11)
[2021-12-28] MEDS: OXYCODONE IR 5 MG TABLET PO ×3 (09:37→18:19)
[2021-12-28] MEDS: ASPIRIN EC 81 MG TABLET PO (09:37)
[2021-12-28] MEDS: TAMSULOSIN 0.4 MG CAPSULE PO (09:37)
--- NOTE | 2021-12-28 10:48 | PT.IPTN ---
Current Diagnoses Pyogenic arthritis, unspecified (12/24/21) Pain in right ankle and joints of right foot (12/24/21) Surgery Performed Operation Date: 12/24/21 20:30 Actual Procedures p Right Ankle Arthroscopy with Irrigation & Debridement (Right) - Leonila Miranda MD Physical Therapy Treatment Note M2 PT-IP Current Condition Start: 12/25/21 08:47 Freq: NEEDED Status: Active Protocol: Document 12/25/21 10:21 AW (Rec: 12/25/21 10:46 AW [id number]) Physical Therapy Current Condition Current Condition Evaluation Date 12/25/21 Treatment Diagnosis septic ankle joint s/p I&D; impaired mobility and gait Onset Date 12/23/21 M3 PT-IP Subjective Start: 12/25/21 08:47 Freq: NEEDED Status: Active Protocol: Document 12/28/21 10:29 KS (Rec: 12/28/21 13:43 KS [id number]) Subjective Physical Therapy Visit Type Type Treatment Note Visit Start Time 10:29 Visit Stop Time 10:48 Total Visit Minutes 19 Number of PERCUSSION INSTRUMENT REPAIRER Visits 3 Physical Therapy Visit Comments Patient Comments Pt is willng to participate with PT Patient Goals Reduce pain, improve ankle mobility, return to regular activity. M4 PT-IP Mobility and Gait Start: 12/25/21 08:47 Freq: NEEDED Status: Active Protocol: Document 12/28/21 10:29 KS (Rec: 12/28/21 13:43 KS [id number]) PT-Bed Mobility Assessment Scooting Scooting to Edge of Bed Independent PT-Transfer Assessment Sit to and From Stand Sit to and from Stand Standby Assistance,1 Person Assistance,Use of Upper Extremities Equipment Transfer Assistive Device Gait Belt,Front Wheeled Walker Orthotic/Prosthetic Devices or Brace: No Transfers Transfer Destination Chair,Toilet Transfer Technique pt ambulated with FWW Transfer Ability Level of Assist Standby Assistance Comments Mobility Comments Pt in chair w/ leg elevated upon arrival. Concerned about pain in LLE. SBA for sit<> stand and ambuation to bathroom w/ FWW. Afterwards pt reported fatigued from ambulaton but was able to tolerate LE exercises including ankle pumps, quad sets, heel slides, glute sets, seated marching, and SLR. Provided pt w/ handout of exercises to promote LE blood flow and strengthening. Pt left in chair w/ all needs in reach. Gait Assessment Gait Gait Assistance Required: Standby Assistance Distance (Feet) 20 Able to Maintain Weight Bearing Status Yes During Gait Assistive Devices Assistive Device Gait Belt,Front Wheeled Walker Orthotic/Prosthetic Devices or Brace: No Gait Deviations General Gait Pattern Antalgic,Step-to Gait Factors Limiting Gait Function Factors Limiting Gait Function Limited Range of Motion,Pain Comments Gait Comments See mobility comments for details. Stair Climbing Assessment Comments Stair Climbing Comments Not assessed. Pt will not need to negotiate stairs at home. PT-Balance Assessment Sitting Balance and Reactions Static Sitting Balance Ability Normal Dynamic Sitting Balance Ability Normal Standing Balance and Reactions Static Standing Balance Ability Good Dynamic Standing Balance Ability Good Device Used FWW Comments Other Balance Tests/Deviations/Treatment Pt able to maintain NWB RLE : with FWW w/o LOB. Quick approach to fatigue and high amount of pain. M5 PT-IP Objective Assessments Start: 12/25/21 08:47 Freq: NEEDED Status: Active Protocol: Document 12/25/21 10:21 AW (Rec: 12/25/21 11:01 AW [id number]) Orientation Orientation/Cognition Level of Alertness Alert Orientation Age,Day of Week,Place, Situation Language Function Ability No Deficits Noted Safety Awareness Understands Safety Issues Gross Range of Motion Lower Extremity ROM Assessment Right Impaired Impairments Right ankle in bulky dressing, continues to feel tight and stiff. Strength Upper Extremity Strength Assessment Within Functional Limits Lower Extremity Strength Assessment Right Impaired Ankle NT due to pain Comments Strength Comments LLE grossly 5/5 Sensation Assessment Sensation Gross Sensation WNL Other Assessments Other Other Assessments Pt's right ankle is wrapped and not inspected visually at this encounter but pt does complain of swollen and painful feeling. M6 PT-IP Treatment Start: 12/25/21 08:47 Freq: NEEDED Status: Active Protocol: Document 12/28/21 10:29 KS (Rec: 12/28/21 13:43 KS [id number]) Physical Therapy Treatment Exercises Exercises Ankle Pumps,Gluteal Sets,Quad Sets,Heel Slides,Straight Leg Raises Education Education Provided Weight Bearing Status,Safety Other Treatments Other Treatment Performed Seated marching M7 PT-IP Assessment and Plan Start: 12/25/21 08:47 Freq: NEEDED Status: Active Protocol: Document 12/28/21 10:29 KS (Rec: 12/28/21 13:43 KS [id number]) PT Summary Assessment and Plan Potential Rehabilitation Potential Excellent Summary Impairments Pain,ROM,Strength,Balance, Transfers,Gait Progress Towards Goals Progressing Toward Goals Assessment Summary Pt continues to demonstrate good use of FWW while NWB on RLE due to pain. SBA for mobility, but limited by pain and quick approach to fatigue. Good tolerance for LE exercises this date. No stairs at home, pt feels capable of returning home w/ support. Has acquired FWW and is working to acquire knee scooter. Goals Bed Mobility Goal Independent Transfer Goal Independent,Front Wheeled Walker Gait Goal Independent,Front Wheel Walker Gait Distance 75 Other Goals - progress gait and transfers to independent with axillary crutches or knee scooter Days to Meet Goals 3 Frequency of Treatment Frequency Of Treatment Once a Day Treatment Plan Physical Therapy Treatment Plan Bed Mobility Training,Transfer Training,Gait Training, Therapeutic Exercise,Balance Retraining,Post Op Education, Discharge Planning,Hot or Cold Pack Other Recommendations and Next Treatment assess mobility with knee Focus scooter Weight Bearing Status Weight Bearing Status Partial Weight Bearing Allowed Weight Bearing Amount (enter % PWB RLE (pt prefers to do NWB) or #) (%) Recommendations To Nursing Amount of Assist Needed 1 Person Assist Discharge Recommendations PT Discharge Recommendations Home with Assistance, Outpatient PT Transportation Needs at Discharge Private Vehicle
[2021-12-28 11:00] VITALS: BP 106/75; PULSE 84; RESP 18; TEMP 36.6; O2SAT 100
--- NOTE | 2021-12-28 11:33 | P.PN_ITS ---
Subjective Subjective Date Patient Seen: 12/28/21 Time Patient Seen: 11:34 Interval history: Patient is complaining of moderate to severe right ankle pain. He is having some difficulty with dorsiflexion and plantar flexion. He is attempting to elevate toes above the nose. Per the patient, the hospitalist is keeping him another night. Exam Vital Signs (past 8 hours): - 12/28/21 06:20 12/28/21 08:12 12/28/21 08:45 Temperature 97.8 F 97.8 F Pulse Rate 84 76 Respiratory Rate 16 18 Blood Pressure 127/74 105/66 Pulse Oximetry 98 97 Oxygen Delivery Method Room Air Oxygen Flow Rate 0 0 12/28/21 11:00 Temperature 97.8 F Pulse Rate 84 Respiratory Rate 18 Blood Pressure 106/75 Pulse Oximetry 100 Oxygen Delivery Method Oxygen Flow Rate 0 Oxygen Delivery Method Room Air Oxygen Flow Rate 0 Narrative Exam Narrative: Pleasant 71-year-old male, resting comfortably in bed, in mild distress due to pain/discomfort. Lateral aspect of the right ankle demonstrates erythema, edema, warmth from the distal 1/3 tib-fib to his midfoot. This does not appear to be acutely infectious, borderline ecchymosis due to his bleeding from the Eliquis. He is exquisitely tender to palpation over the lateral aspect of the ankle. Dorsiflexion and plantar flexion are intact, but limited due to swelling and likely bleeding into the joint with postop Eliquis BID. Bilateral calves are soft, he has mild tenderness in the right medial saunders/soleus. Patient was examined by myself and Dr. Miranda today. Objective Labs Result Diagrams: 12/28/21 06:35 12/28/21 06:35 Labs: Laboratory Results - last 24 hr 12/28/21 12/28/21 06:35 06:35 WBC 8.9 RBC 4.11 L Hgb 13.0 L Hct 37.4 L MCV 90.9 MCH 31.6 MCHC 34.8 RDW 12.7 Plt Count 221 Neut % (Auto) 74.0 Lymph % (Auto) 14.0 L [place] % (Auto) 10.9 Eos % (Auto) 0.5 L Baso % (Auto) 0.6 Neut # (Auto) 6600 Lymph # (Auto) 1200 [place] # (Auto) 1000 H Eos # (Auto) 0 Baso # (Auto) 100 Sodium 137 Potassium 4.1 Chloride 100 Carbon Dioxide 30 BUN 19 Creatinine 0.69 Estimated GFR > 60 BUN/Creatinine Ratio 27.5 H Glucose 123 H Calcium 8.8 Magnesium 2.4 H PFSH Medical History BPH (benign prostatic hyperplasia) Coronary artery disease Dyslipidemia Hypertension Surgical History History of back surgery Hx of CABG Family History Mother Coronary artery disease Father Cancer Social History household members: spouse Smoking Status: Never smoker Assessment & Plan Post-op Postoperative Procedures: Procedures Operation Date: 12/24/21 20:30 Actual Procedure Side Surgeon p Right Ankle Arthroscopy with Irrigation & Debridement Right Leonila Miranda MD Postoperative day: 4 Postoperative status: marginal pain control Postoperative status narrative: -Status post right ankle arthroscopy with irrigation debridement septic right ankle -postop hematoma right ankle -Chronic atrial fib, history of coronary artery disease, BPH managed by internal medicine Postoperative plan narrative: -Patient is on cefazolin 2 g IV Q 8 hours, discontinued vancomycin 12/26. Ankle aspirate and blood culture growing MSSA, along with MSSA bacteremia. -Care management working on setting up patient for home infusion therapy for prolonged IV antibiotic -PICC line LUE placed 12/26, however, blood cultures from 12/24 positive. No gr owth on blood cultures from 12/26 for 48 hrs, ok to keep PICC. -Mobilize with physical therapy partial weight-bearing, 50% right lower extremity -Ankle ROM is limited due to swelling and likely postop hematoma due to Eliquis BID. -patient should be on DVT prophylaxis x6 weeks after surgery. His normal Eliquis BID would be sufficient. -Follow-up with [facility] in [facility] after discharge home in 10-14 days postop. -Patient is to have consultation with Dr. Lara [facility] infectious disease Hospitalist is managing chronic AFib, CAD, BPH. Echocardiogram findings from Dec 27 are concerning for possible infective endocarditis, and so ID consult Dr. Lara at [facility] is requesting patient be transferred to [facility] for MELANIE, and this process has been started on Dec 28.
--- NOTE | 2021-12-28 11:43 | CM.DPC ---
DCP Cont: Was informed during team rounds that patient is not discharging home today. Spoke to Марина, pharmacist at [facility]. Her direct number is: [phone]. She had mentioned that nursing was already cancelled, as they were to be coming to do teaching this morning originally, between [id number]. She indicated that they don't have a nurse available to come here to the hospital tomorrow, but can see patient in the home on Saturday. Since patient is currently getting his antibiotic every 8 hours, she wants to know if he can get his last dose here at 1600, and alleviate the 2300 dose. Let her know that this can be run by the hospitalist, who is in touch with Dr. Dumont. At this time, final culture report is not yet in. P: DCP to continue to follow. Will update [facility] tomorrow on time of discharge, and work with coordination in the home. Sue Pizano RN/Outdoor Recreation Specialist
--- NOTE | 2021-12-28 13:42 | P.PN_ITS ---
Subjective Subjective Interval history: The patient complains of ongoing right ankle pain, and he is amenable to restarting oxycodone for pain. He was reluctant due to slowed intestinal motility, but he's OK with restarting oxycodone with stool softeners. Blood cultures from Dec 26 show no growth for 24 hrs. However, echocardiogram findings are concerning for possible infective endocarditis, and so ID consult Dr. Lara at [facility] is requesting patient be transferred there for MELANIE, and this process has been started on Dec 28. Exam Vital Signs (past 8 hours): - 12/28/21 06:20 12/28/21 08:12 12/28/21 08:45 Temperature 97.8 F 97.8 F Pulse Rate 84 76 Respiratory Rate 16 18 Blood Pressure 127/74 105/66 Pulse Oximetry 98 97 Oxygen Delivery Method Room Air Oxygen Flow Rate 0 0 12/28/21 11:00 Temperature 97.8 F Pulse Rate 84 Respiratory Rate 18 Blood Pressure 106/75 Pulse Oximetry 100 Oxygen Delivery Method Oxygen Flow Rate 0 Oxygen Delivery Method Room Air Oxygen Flow Rate 0 Const Other: Patient laying in bed comfortably upon my entering the room, in no apparent acute distress Eyes Other: No scleral icterus appreciated Resp Other: Clear to auscultation bilaterally Cardio Other: RRR, S1 and S2 heart sounds normal, no extra heart sounds or murmurs appreciated GI Other: Soft, non-distended, non-tender, bowel sounds present Skin Other: No grossly abnormal skin lesions noted Extrem Other: Right ankle wrap bandage appreciated, with limited passive/active ROM on the right due to pain, and palpable dorsalis pedis pulses bilaterally Objective Labs Result Diagrams: 12/28/21 06:35 12/28/21 06:35 Labs: Laboratory Results - last 24 hr 12/28/21 12/28/21 06:35 06:35 WBC 8.9 RBC 4.11 L Hgb 13.0 L Hct 37.4 L MCV 90.9 MCH 31.6 MCHC 34.8 RDW 12.7 Plt Count 221 Neut % (Auto) 74.0 Lymph % (Auto) 14.0 L [place] % (Auto) 10.9 Eos % (Auto) 0.5 L Baso % (Auto) 0.6 Neut # (Auto) 6600 Lymph # (Auto) 1200 [place] # (Auto) 1000 H Eos # (Auto) 0 Baso # (Auto) 100 Sodium 137 Potassium 4.1 Chloride 100 Carbon Dioxide 30 BUN 19 Creatinine 0.69 Estimated GFR > 60 BUN/Creatinine Ratio 27.5 H Glucose 123 H Calcium 8.8 Magnesium 2.4 H PFSH Medical History BPH (benign prostatic hyperplasia) Coronary artery disease Dyslipidemia Hypertension Surgical History History of back surgery Hx of CABG Family History Mother Coronary artery disease Father Cancer Social History household members: spouse Smoking Status: Never smoker Assessment & Plan Assessment & Plan narrative: 1. Acute right ankle septic arthritis, present on admission, improving -status post irrigation and debridement on 12/[address] Miranda -ankle aspirate and blood culture growing MSSA, along with MSSA bacteremia -start cefazolin 2 g IV q.8 hours, discontinued vancomycin 12/26 -PICC line LUE placed 12/26, however, blood cultures from 12/24 positive -if there is no growth on blood cultures from 12/26 for 48 hrs, than can keep PICC -care management to set up home infusion therapy for prolonged duration IV antibiotic therapy 2. Chronic atrial fibrillation -continue metoprolol -will hold apixaban on 12/27 due to extra bleeding from right ankle site, along with pending MELANIE -scheduled for ablation on February 26 it will have to be postponed 3.? History of CAD -continue low-dose aspirin and atorvastatin per home routine 4.? BPH -continue tamsulosin Blood cultures from Dec 26 show no growth for 24 hrs. However, echocardiogram findings from Dec 27 are concerning for possible infective endocarditis, and so ID consult Dr. Lara at [facility] is requesting patient be transferred to [facility] for MELANIE, and this process has been started on Dec 28. Time Spent With Patient Critical Care time: I spent a total of [] minutes of critical care time on this patient's care today; this time is exclusive of procedural time.
[2021-12-28 15:27] VITALS: BP 116/71; PULSE 98; RESP 18; TEMP 37.2; O2SAT 97
--- NOTE | 2021-12-28 17:28 | PC.NURSE ---
Pain has been difficult to control today after pt went almost 6 hours earlier today without medication. Importance of staying on top of pain meds discussed with patient. Position changes and ice offered with minimal relief. Pt agrees to continue to adhere to pain med regimen. Otherwise A&Ox4, able to transfer easily to chair with walker and 1 person SBA. Voiding well, last BM 12/27. Plan to transfer to [facility] tomorrow just for MELANIE and then return to [facility].
[2021-12-28 20:00] VITALS: BP 127/65; PULSE 88; RESP 16; TEMP 37.8; O2SAT 95
[2021-12-28] MEDS: ATORVASTATIN 20 MG TABLET 40 MG PO (20:11)
[2021-12-29] VITALS (8 sets, daily range): BP systolic 109–127; BP diastolic 68–80; PULSE 68–94; RESP 14–18; TEMP 36.1–38.4; O2SAT 95–100
[2021-12-29] MEDS: ACETAMINOPHEN 325 MG TABLET 650 MG PO ×2 (00:14→23:50)
[2021-12-29] MEDS: CEFAZOLIN 2 GM/100 ML PREMIX 100 ML IV ×4 (00:15→23:49)
[2021-12-29] MEDS: OXYCODONE IR 5 MG TABLET PO ×4 (05:22→17:09)
[2021-12-29 05:25] LABS: Add Manual Diff / Slide Review NO; Basophils Absolute Auto 0 /uL (0-100); Basophils Percent Auto 0.3 % (0-2); Eosinophils Absolute Auto 0 /uL (0-450); Eosinophils Percent Auto 0.4 % (2-4); Hematocrit 34.7 % (41-53); Hemoglobin 12.4 g/dL (13.5-17.5); Lymphocytes Absolute Auto 1500 /uL (1100-4500); Lymphocytes Percent Auto 18.2 % (25-40); Mean Corpuscular HGB Conc 35.7 % (30-36); Mean Corpuscular Hemoglobin 32.2 PG (26-34); Mean Corpuscular Volume 90.2 fL (80-100); Monocytes Absolute Auto 1000 /uL (0-900); Monocytes Percent Auto 12.6 % (3-14); Neutrophils Absolute Auto 5600 /uL (1500-7000); Neutrophils Percent Auto 68.5 % (50-75); Platelet Count 248 X10^3/uL (150-400); Red Blood Cell Count 3.84 X10^6/uL (4.5-5.9); Red Cell Distribution Width 12.9 % (11.6-14.8); White Blood Cell Count 8.2 X10^3/uL (4.5-11.0)
[2021-12-29 05:43] LABS: BUN Creatinine Ratio 29.6 (6-22); Blood Urea Nitrogen 21 mg/dL (9-20); Calcium 8.6 mg/dL (8.4-10.2); Carbon Dioxide 30 mmol/L (22-32); Chloride 100 mmol/L (98-107); Estimated Glomerular Filt Rate > 60 mL/min (>60); Glucose 125 mg/dL (80-110); HEMOLYSIS < 15 (0-50); Magnesium 2.3 mg/dL (1.6-2.3); Potassium 3.7 mmol/L (3.4-5.1); Sodium 137 mmol/L (137-145)
[2021-12-29] MEDS: SODIUM CHLORIDE 0.9% FLUSH 10 ML IV ×2 (08:32→23:50)
[2021-12-29] MEDS: MORPHINE 2 MG/ML INJ IV (08:33)
--- NOTE | 2021-12-29 08:53 | PC.NURSE ---
Day Shift Pt left floor via transport at 0855 going to [facility] for MELANIE, Pt stated had no pain at all, Pt had cell phone, glasses and magazine on person.
--- NOTE | 2021-12-29 10:50 | CM.DPC ---
Addendum entered by Sue Pizano R.N. 12/29/21 13:22: Have updated Марина at [facility] as well. Addendum entered by Sue Pizano R.N. 12/29/21 13:20: Patient is back, and hospitalist had spoken to Dr. Dumont, infectious disease doctor, does not want patient to miss a dose, needs to be on medication every 8 hours. Patient will discharge tomorrow after his 0800 dose, and [facility] still will be in the home tomorrow at 10:30, as long as his antibiotic can be completed in time. Patient confirmed that he does not need any home health services, he has family that are nurses, and doctors that are his neighbors. Original Note: DCP Cont: Patient went over to [facility] for MELANIE. He is expected to return here, then discharge. Discussed IV ABO, as [facility] can't see patient until tomorrow. Asked hospitalist if 2400 dose can be omitted since [facility] can't see patient until tomorrow. Stated, he did not think that it would be a problem. Марина from [facility] called back, and gave her update. She thought that patient would be here tomorrow for the teaching, but let her know that he is to be discharging this pm. She will call this DC Monitoring Tech back after she works on getting staff for tomorrow. Have updated Jamarcusrrian that patient will need his 1600 dose of antibiotic before he leaves, and will work on getting a script for patient. P: DCP to continue to work on discharge plan. Марина from [facility] just called back and confirmed that they can be at patient's home at approximately 10:30am. She did ask for a PICC report, will fax to her, and once orders are in, will fax, including script. Sue Pizano RN/Shopper Marketing Manager
--- NOTE | 2021-12-29 12:04 | PT-IP ANOTE ---
Attempted to see pt, but pt still has not returned from MELANIE at [facility].
--- NOTE | 2021-12-29 12:55 | PC.NURSE ---
Day Shift Pt returned from [facility] MELANIE test via [facility] at 1255. Pt is accompanied by spouse and is AOx4, no pain, no nausea at this time.
--- NOTE | 2021-12-29 13:00 | P.PN_ITS ---
Subjective Subjective Date Patient Seen: 12/29/21 Time Patient Seen: 13:00 Interval history: Patient is complaining of moderate right ankle pain. He just returned via ambulance from [facility] for transesophageal echocardiogram, as recommended by Dr. Hua WHITFIELD, infectious Disease. He notes his pain decreased dramatically when he was able to elevate toes above the nose last night. Overall he is feeling well and would like to be discharged home, depending on hospitalist recommendation. Exam Vital Signs (past 8 hours): - 12/29/21 05:41 12/29/21 08:35 Temperature 97 F L 97.7 F Pulse Rate 78 68 Respiratory Rate 14 18 Blood Pressure 112/72 127/68 Pulse Oximetry 96 96 Oxygen Flow Rate 0 0 Oxygen Delivery Method Room Air Oxygen Flow Rate 0 Narrative Exam Narrative: 71-year-old male, resting comfortably in bed, no acute distress. Dressings were removed and demonstrate slightly decreased erythema on the medial aspect of the distal saunders/ankle and midfoot. This is likely due to hematoma from chronic anticoagulation. There is no active drainage, dressings are clean, dry, intact. Bilateral calves are soft and nontender to palpation. Objective Labs Result Diagrams: 12/29/21 05:15 12/29/21 05:15 Labs: Laboratory Results - last 24 hr 12/29/21 12/29/21 05:15 05:15 WBC 8.2 RBC 3.84 L Hgb 12.4 L Hct 34.7 L MCV 90.2 MCH 32.2 MCHC 35.7 RDW 12.9 Plt Count 248 Neut % (Auto) 68.5 Lymph % (Auto) 18.2 L [place] % (Auto) 12.6 Eos % (Auto) 0.4 L Baso % (Auto) 0.3 Neut # (Auto) 5600 Lymph # (Auto) 1500 [place] # (Auto) 1000 H Eos # (Auto) 0 Baso # (Auto) 0 Sodium 137 Potassium 3.7 Chloride 100 Carbon Dioxide 30 BUN 21 H Creatinine 0.71 Estimated GFR > 60 BUN/Creatinine Ratio 29.6 H Glucose 125 H Calcium 8.6 Magnesium 2.3 PFSH Medical History BPH (benign prostatic hyperplasia) Coronary artery disease Dyslipidemia Hypertension Surgical History History of back surgery Hx of CABG Family History Mother Coronary artery disease Father Cancer Social History household members: spouse Smoking Status: Never smoker Assessment & Plan Post-op Postoperative Procedures: Procedures Operation Date: 12/24/21 20:30 Actual Procedure Side Surgeon p Right Ankle Arthroscopy with Irrigation & Debridement Right Leonila Miranda MD Postoperative status narrative: -Status post right ankle arthroscopy with irrigation debridement septic right ankle -postop hematoma right ankle -Chronic atrial fib, history of coronary artery disease, BPH managed by internal medicine Postoperative plan narrative: -Patient is on cefazolin 2 g IV Q 8 hours, discontinued vancomycin 12/26. Ankle aspirate and blood culture growing MSSA, al vivi with MSSA bacteremia. -Care management working on setting up patient for home infusion therapy for prolonged IV antibiotic, likely at least 3 weeks -PICC line LUE placed 12/26, however, blood cultures from 12/24 positive. No growth on blood cultures from 12/26 for 48 hrs, ok to keep PICC. -Mobilize with physical therapy partial weight-bearing, 50% right lower extremity -Ankle ROM is limited due to swelling and likely postop hematoma due to Eliquis BID. -patient should be on DVT prophylaxis x6 weeks after surgery. His normal Eliquis BID would be sufficient. -Follow-up with [facility] in [facility] after discharge home in 10-14 days postop. -Patient is to have consultation with Dr. Lara [facility] infectious disease Hospitalist is managing chronic AFib, CAD, BPH. MELANIE done today at [facility], as requested by Dr. Wilkins.
--- NOTE | 2021-12-29 14:44 | PM.PN.1 ---
Subjective Subjective Date Patient Seen: 12/29/21 Time Patient Seen: 13:00 Interval history: He underwent MELANIE today. Discussed with cardiology and no evidence of vegetation. He feels his pain is not currently well controlled. Exam Vital Signs (past 8 hours): - 12/29/21 08:35 Temperature 97.7 F Pulse Rate 68 Respiratory Rate 18 Blood Pressure 127/68 Pulse Oximetry 96 Oxygen Flow Rate 0 Oxygen Delivery Method Room Air Oxygen Flow Rate 0 Const Other: mild distress due to pain Resp Other: clear bilaterally Cardio Other: regular rate and rhythm, no murmurs GI Other: Soft, nontender Extrem Other: Right ankle wrap bandage clean and dry Objective Labs Result Diagrams: 12/29/21 05:15 12/29/21 05:15 Labs: Laboratory Results - last 24 hr 12/29/21 12/29/21 05:15 05:15 WBC 8.2 RBC 3.84 L Hgb 12.4 L Hct 34.7 L MCV 90.2 MCH 32.2 MCHC 35.7 RDW 12.9 Plt Count 248 Neut % (Auto) 68.5 Lymph % (Auto) 18.2 L [place] % (Auto) 12.6 Eos % (Auto) 0.4 L Baso % (Auto) 0.3 Neut # (Auto) 5600 Lymph # (Auto) 1500 [place] # (Auto) 1000 H Eos # (Auto) 0 Baso # (Auto) 0 Sodium 137 Potassium 3.7 Chloride 100 Carbon Dioxide 30 BUN 21 H Creatinine 0.71 Estimated GFR > 60 BUN/Creatinine Ratio 29.6 H Glucose 125 H Calcium 8.6 Magnesium 2.3 PFSH Medical History BPH (benign prostatic hyperplasia) Coronary artery disease Dyslipidemia Hypertension Surgical History History of back surgery Hx of CABG Family History Mother Coronary artery disease Father Cancer Social History household members: spouse Smoking Status: Never smoker Assessment & Plan Assessment & Plan narrative: 1. Acute right ankle septic arthritis, present on admission, improving -status post irrigation and debridement on 12/[address] Miranda -ankle aspirate and blood culture growing MSSA, along with MSSA bacteremia -start cefazolin 2 g IV q.8 hours, discontinued vancomycin 12/26 -PICC line LUE placed 12/26, however, blood cultures from 12/24 positive -blood culture ngtd from 12/26 -per Dr. Dumont follow up in [facility] ID clinic, appt is 01/08 at 1:30pm -may be able to dc on 12/30 if infusion setup, plan for 3-4 weeks abx per ID decision 2. Chronic atrial fibrillation -continue metoprolol -will hold apixaban on 12/27 due to extra bleeding from right ankle site, along with pending MELANIE -scheduled for ablation on February 26 it will have to be postponed 3.? History of CAD -continue low-dose aspirin and atorvastatin per home routine 4.? BPH -continue tamsulosin Blood cultures from Dec 26 show no growth for 24 hrs. However, echocardiogram findings from Dec 27 are concerning for possible infective endocarditis, and so ID consult Dr. Lara at [facility] is requesting patient be transferred to [facility] for MELANIE, and this process has been started on Dec 28. Time Spent With Patient Critical Care time: I spent a total of [] minutes of critical care time on this patient's care today; this time is exclusive of procedural time.
[2021-12-29] MEDS: OXYCODONE IR 5 MG TABLET 10 MG PO ×2 (18:53→23:03)
[2021-12-29] MEDS: DOCUSATE 100 MG CAPSULE 200 MG PO (19:59)
[2021-12-29] MEDS: ATORVASTATIN 20 MG TABLET 40 MG PO (19:59)
[2021-12-29] MEDS: METOPROLOL IR 25 MG TABLET 12.5 MG PO (20:00)
--- NOTE | 2021-12-29 23:38 | PC.NURSE ---
Addendum entered by Milla Harman R.N. 12/29/21 23:43: Did have an elevated temp of 101.1 earlier this shift but when RN went to medicate with Tylenol he declined and had temp rechecked and was 99.6. Patient states the room was too warm and thermostat was adjusted. Original Note: Patient is alert and oriented. Breath sounds CTA with RA sat of 96%. HRR. Denies nausea. BT present and is passing flatus. Denies dysuria, frequency or urgency and is using urinal to void. Able to turn himself in bed. Gait not assessed but is PWB on right LE. Has right LE elevated above level of heart. Has numbness in right LE from toes to mid calf but has good cap refill and able to wiggle all toes. Dressing to right foot/ankle is CDI. At shift change pain was 3/10 but has since increased to 5/10 and was medicated with oxycodone.; declined ice pack. Declines use of left calf SCD so reminded of importance to ankle wave. Fall risk score is moderate; bed alarm is not activated as patient calls appropriately for assistance. Declined to take Eliquis this evening unless okayed it so Dr Ivey contacted and order received to hold tonight's dose and he will discuss with a.m. hospitalist.
[2021-12-30 04:45] VITALS: BP 122/68; PULSE 66; RESP 18; TEMP 36.4; O2SAT 99
[2021-12-30] MEDS: OXYCODONE IR 5 MG TABLET 10 MG PO ×2 (04:55→08:37)
--- NOTE | 2021-12-30 07:31 | P.PN_ITS ---
Subjective Subjective Date Patient Seen: 12/30/21 Exam Vital Signs (past 8 hours): - 12/29/21 23:50 12/30/21 04:45 Temperature 99.8 F H 97.6 F Pulse Rate 66 Respiratory Rate 18 Blood Pressure 122/68 Pulse Oximetry 99 Oxygen Delivery Method Room Air Oxygen Flow Rate 0 Objective Labs Result Diagrams: 12/29/21 05:15 12/29/21 05:15 [facility] Medical History BPH (benign prostatic hyperplasia) Coronary artery disease Dyslipidemia Hypertension Surgical History History of back surgery Hx of CABG Family History Mother Coronary artery disease Father Cancer Social History household members: spouse Smoking Status: Never smoker Assessment & Plan Assessment & Plan narrative: 1. Acute right ankle septic arthritis, present on admission, improving -status post irrigation and debridement on 12/[address] Miranda -ankle aspirate and blood culture growing MSSA, along with MSSA bacteremia -start cefazolin 2 g IV q.8 hours, discontinued vancomycin 12/26 -PICC line LUE placed 12/26, however, blood cultures from 12/24 positive -blood culture ngtd from 12/26 -per Dr. Dumont follow up in [facility] ID clinic, appt is 01/08 at 1:30pm -may be able to dc on 12/30 if infusion setup, plan for 3-4 weeks abx per ID decision 2. Chronic atrial fibrillation -continue metoprolol -will hold apixaban on 12/27 due to extra bleeding from right ankle site, along with pending MELANIE -scheduled for ablation on February 26 it will have to be postponed 3.? History of CAD -continue low-dose aspirin and atorvastatin per home routine 4.? BPH -continue tamsulosin Blood cultures from Dec 26 show no growth for 24 hrs. However, echocardiogram findings from Dec 27 are concerning for possible infective endocarditis, and so ID consult Dr. Lara at [facility] is requesting patient be transferred to [facility] for MELANIE, and this process has been started on Dec 28. Time Spent With Patient Critical Care time: I spent a total of [] minutes of critical care time on this patient's care today; this time is exclusive of procedural time.
--- NOTE | 2021-12-30 07:32 | PM.DS.1 ---
History of Present Illness History of Present Illness Date Patient Seen: 12/30/21 Chief complaint: septic right ankle Narrative: Ganesh Reardon is a 71-year-old gentleman with a medical history of BPH, coronary artery disease, basal cell carcinoma, CABG x3, atrial fibrillation on Eliquis (scheduled for cardiac ablation in February), recent or robotic assisted hernia repair.? The patient was seen in the inside account executive of the hours on 12/24/2021 in the ED for right ankle pain, was treated conservatively and discharged home only to return later in the evening as his right ankle pain starting yesterday has progressively worsened, ultrasound negative for a DVT,? x-rays negative for significant injury to right ankle.? He notes progressive worsening right ankle pain and progressive erythema.? He did not have significant fevers at home.?He took his Eliquis today this morning and is due for a 2nd dose.? He did have a minor trauma yesterday when he was barefoot and had a minor injury to his right foot and ankle.? He has had a recent flu vaccine.? Patient was seen and evaluated by Dr. Miranda orthopedics in the emergency department and was taken directly from the ED to the OR for septic joint right ankle washout. Patient was evaluated and seen for admit after returning to the floor postop.? Patient is resting comfortably in bed in no discomfort at this time vitals are stable temp 98.1?, BP 115/61, HR 69, R 19, O2 saturation 98% on room air.? Patient denies chest pain, shortness of breath, headache, changes in vision, abdominal pain, nausea, vomiting, fever, body aches, chills, any pain or distress at this time.? Patient's lower right leg ankle and foot are wrapped. Patient's lab work from ED elevated WBC 15.1, with a left shift neutrophils 12,100, mono 1900, mild hyponatremia sodium 134, chloride 96, glucose 123, ESR WNL, CRP 13.9.? Patient be admitted for septic joint right ankle.? To be managed by Dr. Miranda? orthopedics, hospitalist service to manage atrial fibrillation and hypertension. Discharge Providers Provider Date of admission: 12/24/21 19:49 Discharge Date: 12/30/21 Primary care physician: Abby Bocanegra PA-C Consults: 12/24/21 19:45 Consult to Internal Medicine Stat Comment: Consulting Provider: Katina Sharif Reason for consultation: admission Has provider been notified: Yes Consult to Orthopedic Surgery Stat Comment: Consulting Provider: Leonila Miranda Reason for consultation: septic joint Has provider been notified: Yes 12/24/21 23:00 Consult to Discharge Planning Routine Comment: Consult to Physical Therapy Evaluate & Treat Comment: Physician Instructions: Evaluate and Treat Consult to Respiratory Therapy Evaluate & Treat Comment: Physician Instructions: Evaluate and treat 12/26/21 01:28 Consult After Hours PICC Line RN Routine Comment: 12/26/21 21:31 Consult to Physician Routine Comment: Consulting Provider: Barbara Lara Reason for consultation: Septic ankle +blood/wound Staph cultures Has provider been notified: Yes Discharge provider: Zeynep Deluca MD Summary Hospital Course Hospital Course: 1. Acute right ankle septic arthritis -status post irrigation and debridement on 12/[address] Miranda -ankle aspirate and blood culture growing MSSA, along with MSSA bacteremia -start cefazolin 2 g IV q.8 hours, discontinued vancomycin 12/26 -PICC line LUE placed 12/26, however, blood cultures from 12/24 positive -blood culture ngtd from 12/26 -echocardiogram findings from Dec 27 are concerning for possible infective endocarditis -the Eliquis is still on hold due to postoperative bleeding in the ankle. -per Dr. Dumont follow up in [place] ID clinic, appt is 01/08 at 1:30pm 4 WEEKS of IV Ancef ordered at discharge this morning. [facility] will be meeting him at 10 am today. Per Orthopedics: -Mobilize with physical therapy partial weight-bearing, 50% right lower extremity -Ankle ROM is limited due to swelling and likely postop hematoma due to Eliquis twice daily. -Follow-up with Annette in [facility] after discharge home in 10-14 days postop. Acute hypoxic and hypercapnic respiratory failure, present on admission, likely due to AECOPD -initial ABG pCO2 87pH 7.23 consistent with acute respiratory acidosis, subsequent ABG pCO2 77, pH 7.33 indicative chronic CO2 retention -patient was treated with BiPAP, DuoNeb, prednisone and Pulmicort. -echo showed normal LVEF -chest x-ray with interstitial prominence, likely due to viral pneumonia -respiratory panel PCR positive for parainfluenza -will likely benefit from outpatient PFTs and sleep study Likely community-acquired pneumonia -patient with new cough on 12/27 -started IV ceftriaxone and IV azithromycin on 12/27/21 Cigarette dependency -nicotine patch -encouraged to quit smoking Severe obesity, class 3, possibly causing OHS -BMI 44, contributor to respiratory failure Code status: Full code Status at Discharge Cognitive/behavioral status at discharge: at baseline, oriented Functional status at discharge: uses cane/walker Overall status at discharge: patient is progressing back to baseline Exam Vital Signs (past 8 hours): - 12/29/21 23:50 12/30/21 04:45 Temperature 99.8 F H 97.6 F Pulse Rate 66 Respiratory Rate 18 Blood Pressure 122/68 Pulse Oximetry 99 Oxygen Delivery Method Room Air Oxygen Flow Rate 0 Narrative Exam Narrative: He is fully oriented, in no apparent distress. Heart is regular rate and rhythm without murmur. Lungs are clear to auscultation bilaterally. Abdomen is soft, bowel sounds positive, nontender, no organomegaly. Extremities have only trace right edema. There is a dressing covering the incisions on the right ankle. He has minimal movement of the right ankle. He would like a Dulcolax suppository to go home with. Objective Labs Result Diagrams: 12/29/21 05:15 12/29/21 05:15 [facility] Medical History BPH (benign prostatic hyperplasia) Coronary artery disease Dyslipidemia Hypertension Surgical History History of back surgery Hx of CABG Family History Mother Coronary artery disease Father Cancer Social History household members: spouse Smoking Status: Never smoker Discharge Plan Discharge Plan Patient Disposition: Home Provider Discharge Comment: Please follow up with Dr. Lara at [facility] ID clinic on SaturdayJan 08 at 1:30pm Discharge orders & Medications Prescriptions: New cefazolin in 0.9% sod chloride 2 gram/100 mL solution 100 ml IV .q8 Qty: 9000 0RF oxycodone 5 mg Tablet 10 mg PO Q3HR PRN (Reason: Pain, Moderate (4-6)) Qty: 30 0RF polyethylene glycol 3350 17 gram Powder In Packet 17 gm PO DAILY Qty: 60 0RF bisacodyl 10 mg Suppository 10 mg [place] DAILY PRN (Reason: Constipation) Qty: 30 0RF Continued atorvastatin [Lipitor] 40 MG tablet 40 mg PO HS Qty: 30 tamsulosin [Flomax] 0.4 MG capsule,extended release 24hr 0.4 mg PO QDAY Qty: 0 metoprolol tartrate 25 MG tablet 12.5 mg PO BID Qty: 0 aspirin 81 MG tablet,delayed release (DR/EC) 81 mg PO QDAY Qty: 30 latanoprost [Xalatan] 0.005 % drops 1 drp OU HS Qty: 2.5 clobetasol-emollient 0.05 % cream 1 param Topical BID Qty: 30 coQ10 (ubiquinol) 100 MG capsule 100 mg PO BEDTIME Qty: 0 Discontinued Eliquis 5 mg PO BID Follow up/Referrals: Barbara Lara MD [Non-Staff] - Leonila Miranda MD [Physician] - (10-14 days for postoperative visit) Abby Bocanegra PA-C [Primary Care Provider] - Diet/Activity/Treatments Other treatments: -Mobilize with physical therapy partial weight-bearing, 50% right lower extremity -Ankle ROM is limited due to swelling and likely postop hematoma due to Eliquis twice daily. -Follow-up with Annette in [facility] after discharge home in 10-14 days postop. -Patient is to have consultation with Dr. Marco Bryant [facility] infectious disease Skin/Wound/Dressing Care Report to your healthcare provider any signs of infection, such as:: chills, fever, night sweats, unusual drainage and unusual redness Visit Report/Discharge Packet Instructions: DI for Prescription Opioid Use, DI for Incision and Drainage of a Joint, [facility]: Wound Care Stand Alone Forms: Surgery Discharge Discharge Data Primary Care Provider: Abby Bocanegra
--- NOTE | 2021-12-30 07:41 | P.PN_ITS ---
Subjective Subjective Date Patient Seen: 12/30/21 Time Patient Seen: 07:41 Interval history: Patient is complaining of moderate right ankle pain, which is markedly improved when he is elevating toes above the nose. He is complaining of severe increase in pain upon sitting to standing, likely due to the dependent edema. He went to [facility] yesterday and had a MELANIE, which was negative for vegetations. He has a follow-up appointment scheduled with Dr. Lara, Infectious Disease. Exam Vital Signs (past 8 hours): - 12/29/21 23:50 12/30/21 04:45 Temperature 99.8 F H 97.6 F Pulse Rate 66 Respiratory Rate 18 Blood Pressure 122/68 Pulse Oximetry 99 Oxygen Delivery Method Room Air Oxygen Flow Rate 0 Narrative Exam Narrative: Pleasant 71-year-old male, resting comfortably in bed with his right lower extremity elevated on multiple pillows. His swelling has decreased significantly from yesterday. He still has some warmth and erythema along his ankle and distal saunders, likely related to his postoperative hematoma and chronic anticoagulation. He is able to wiggle his toes better today than previously. Calves are soft and nontender to palpation. Objective Labs Result Diagrams: 12/29/21 05:15 12/29/21 05:15 [facility] Medical History BPH (benign prostatic hyperplasia) Coronary artery disease Dyslipidemia Hypertension Surgical History History of back surgery Hx of CABG Family History Mother Coronary artery disease Father Cancer Social History household members: spouse Smoking Status: Never smoker Assessment & Plan Post-op Postoperative Procedures: Procedures Operation Date: 12/24/21 20:30 Actual Procedure Side Surgeon p Right Ankle Arthroscopy with Irrigation & Debridement Right Leonila Miranda MD Postoperative day: 6 Postoperative status narrative: -Status post right ankle arthroscopy with irrigation debridement septic right ankle -postop hematoma right ankle -Chronic atrial fib, history of coronary artery disease, BPH managed by internal medicine Postoperative plan narrative: -Patient is on cefazolin 2 g IV Q 8 hours, discontinued vancomycin 12/26. Ankle aspirate and blood culture growing MSSA, along with MSSA bacteremia. -Care management working on setting up patient for home infusion therapy for prolonged IV antibiotic, likely at least 3-4 weeks depending on ID recommendation -PICC line LUE placed 12/26, however, blood cultures from 12/24 positive. No growth on blood cultures from 12/26 for 48 hrs, ok to keep PICC. -Mobilize with physical therapy partial weight-bearing, 50% right lower extremity -Ankle ROM is limited due to swelling and likely postop hematoma due to Eliquis BID. -Follow-up with [facility] [place] after discharge home in 10-14 days postop. -[facility] to [facility] Hospital[facility] is managing chronic AFib, CAD, BPH. MEALNIE done yesterday at [facility] shows no growth, as requested by Dr. Wilkins. -request recommendation for resuming Eliquis or aspirin. Patient should be on DVT prophylaxis x6 weeks after surgery. His normal Eliquis BID would be sufficient. Orthopedics to sign off at this point, please do not hesitate to re-consult with any questions or concerns.
[2021-12-30 07:45] VITALS: BP 141/73; PULSE 81; RESP 18; TEMP 36.3; O2SAT 97
[2021-12-30] MEDS: CEFAZOLIN 2 GM/100 ML PREMIX 100 ML IV (07:54)
[2021-12-30] MEDS: METOPROLOL IR 25 MG TABLET 12.5 MG PO (08:35)
[2021-12-30] MEDS: MAGNESIUM HYDROXIDE 30 ML UDC PO (08:35)
[2021-12-30] MEDS: APIXABAN 5 MG TABLET PO (08:35)
[2021-12-30] MEDS: DOCUSATE 100 MG CAPSULE 200 MG PO (08:35)
[2021-12-30] MEDS: polyethylene glycoL 3350 17 GM POWD.PACK PO (08:35)
[2021-12-30] MEDS: TAMSULOSIN 0.4 MG CAPSULE PO (08:36)
[2021-12-30] MEDS: SODIUM CHLORIDE 0.9% FLUSH 10 ML IV (08:36)
[2021-12-30] MEDS: ASPIRIN EC 81 MG TABLET PO (08:36)
--- NOTE | 2022-01-06 14:56 | PM.DS.1 ---
History of Present Illness History of Present Illness Date Patient Seen: 12/30/21 Chief complaint: septic right ankle Narrative: Ganesh Reardon is a 71-year-old gentleman with a medical history of BPH, coronary artery disease, basal cell carcinoma, CABG x3, atrial fibrillation on Eliquis (scheduled for cardiac ablation in February), recent or robotic assisted hernia repair.? The patient was seen in the boat detailer of the hours on 12/24/2021 in the ED for right ankle pain, was treated conservatively and discharged home only to return later in the evening as his right ankle pain starting yesterday has progressively worsened, ultrasound negative for a DVT,? x-rays negative for significant injury to right ankle.? He notes progressive worsening right ankle pain and progressive erythema.? He did not have significant fevers at home.?He took his Eliquis today this morning and is due for a 2nd dose.? He did have a minor trauma yesterday when he was barefoot and had a minor injury to his right foot and ankle.? He has had a recent flu vaccine.? Patient was seen and evaluated by Dr. Miranda orthopedics in the emergency department and was taken directly from the ED to the OR for septic joint right ankle washout. Patient was evaluated and seen for admit after returning to the floor postop.? Patient is resting comfortably in bed in no discomfort at this time vitals are stable temp 98.1?, BP 115/61, HR 69, R 19, O2 saturation 98% on room air.? Patient denies chest pain, shortness of breath, headache, changes in vision, abdominal pain, nausea, vomiting, fever, body aches, chills, any pain or distress at this time.? Patient's lower right leg ankle and foot are wrapped. Patient's lab work from ED elevated WBC 15.1, with a left shift neutrophils 12,100, mono 1900, mild hyponatremia sodium 134, chloride 96, glucose 123, ESR WNL, CRP 13.9.? Patient be admitted for septic joint right ankle.? To be managed by Dr. Miranda? orthopedics, hospitalist service to manage atrial fibrillation and hypertension. Discharge Providers Provider Date of admission: 12/24/21 19:49 Discharge Date: 12/30/21 Primary care physician: Abby Bocanegra PA-C Consults: 12/24/21 19:45 Consult to Internal Medicine Stat Comment: Consulting Provider: Katina Sharif Reason for consultation: admission Has provider been notified: Yes Consult to Orthopedic Surgery Stat Comment: Consulting Provider: Leonila Miranda Reason for consultation: septic joint Has provider been notified: Yes 12/24/21 23:00 Consult to Discharge Planning Routine Comment: Consult to Physical Therapy Evaluate & Treat Comment: Physician Instructions: Evaluate and Treat Consult to Respiratory Therapy Evaluate & Treat Comment: Physician Instructions: Evaluate and treat 12/26/21 01:28 Consult After Hours PICC Line RN Routine Comment: 12/26/21 21:31 Consult to Physician Routine Comment: Consulting Provider: Barbara Lara Reason for consultation: Septic ankle +blood/wound Staph cultures Has provider been notified: Yes 12/30/21 09:19 Consult to Home Health Routine Comment: Pt is s/p septic right ankle, had I&D Reason For Exam: RN: PICC line dressing changes, assess right ankle Discharge provider: Zeynep Deluca MD Summary Hospital Course Hospital Course: 1. Acute right ankle septic arthritis -status post irrigation and debridement on 12/[address] Miranda -ankle aspirate and blood culture growing MSSA, along with MSSA bacteremia -start cefazolin 2 g IV q.8 hours, discontinued vancomycin 12/26 -PICC line LUE placed 12/26, however, blood cultures from 12/24 positive -blood culture ngtd from 12/26 -echocardiogram findings from Dec 27 are concerning for possible infective endocarditis -the Eliquis is still on hold due to postoperative bleeding in the ankle. -per Dr. Dumont follow up in [facility], appt is 01/08 at 1:30pm 4 WEEKS of IV Ancef ordered at discharge this morning.? [facility] will be meeting him at 10 am today. Per Orthopedics: -Mobilize with physical therapy partial weight-bearing, 50% right lower extremity -Ankle ROM is limited due to swelling and likely postop hematoma due to Eliquis twice daily. -Follow-up with Annette in [facility] after discharge home in 10-14 days postop. 2. Chronic atrial fibrillation -continue metoprolol -will hold apixaban on 12/27 due to extra bleeding from right ankle site, along with pending MELANIE -scheduled for ablation on February 26 it will have to be postponed 3.? History of CAD -continue low-dose aspirin and atorvastatin per home routine 4.? BPH -continue tamsulosin Status at Discharge Cognitive/behavioral status at discharge: at baseline, oriented Functional status at discharge: uses cane/walker Overall status at discharge: patient is progressing back to baseline Exam Vital Signs (past 8 hours): Oxygen Delivery Method Room Air Oxygen Flow Rate 0 Narrative Exam Narrative: He is fully oriented, in no apparent distress.? Heart is regular rate and rhythm without murmur.? Lungs are clear to auscultation bilaterally.? Abdomen is soft, bowel sounds positive, nontender, no organomegaly.? Extremities have only trace right edema. There is a dressing covering the incisions on the right ankle.? He has minimal movement of the right ankle.? He would like a Dulcolax suppository to go home with. Objective Labs Result Diagrams: 12/29/21 05:15 12/29/21 05:15 [facility] Medical History BPH (benign prostatic hyperplasia) Coronary artery disease Dyslipidemia Hypertension Surgical History History of back surgery Hx of CABG Family History Mother Coronary artery disease Father Cancer Social History household members: spouse Smoking Status: Never smoker Discharge Plan Discharge Plan Patient Disposition: Home Provider Discharge Comment: Please follow up with Dr. Laar at [facility] clinic on SaturdayJan 08 at 1:30pm Discharge orders & Medications Prescriptions: New cefazolin in 0.9% sod chloride 2 gram/100 mL solution 100 ml IV .q8 Qty: 9000 0RF oxycodone 5 mg Tablet 10 mg PO Q3HR PRN (Reason: Pain, Moderate (4-6)) Qty: 30 0RF polyethylene glycol 3350 17 gram Powder In Packet 17 gm PO DAILY Qty: 60 0RF bisacodyl 10 mg Suppository 10 mg VA DAILY PRN (Reason: Constipation) Qty: 30 0RF Continued atorvastatin [Lipitor] 40 MG tablet 40 mg PO HS Qty: 30 tamsulosin [Flomax] 0.4 MG capsule,extended release 24hr 0.4 mg PO QDAY Qty: 0 metoprolol tartrate 25 MG tablet 12.5 mg PO BID Qty: 0 aspirin 81 MG tablet,delayed release (DR/EC) 81 mg PO QDAY Qty: 30 latanoprost [Xalatan] 0.005 % drops 1 drp OU HS Qty: 2.5 clobetasol-emollient 0.05 % cream 1 param Topical BID Qty: 30 coQ10 (ubiquinol) 100 MG capsule 100 mg PO BEDTIME Qty: 0 Discontinued Eliquis 5 mg PO BID Follow up/Referrals: Barbara Lara MD [Non-Staff] - Leonila Miranda MD [Physician] - (10-14 days for postoperative visit) Abby Bocanegra PA-C [Primary Care Provider] - Diet/Activity/Treatments Other treatments: -Mobilize with physical therapy partial weight-bearing, 50% right lower extremity -Ankle ROM is limited due to swelling and likely postop hematoma due to Eliquis twice daily. -Follow-up with Annette in [facility] after discharge home in 10-14 days postop. -Patient is to have consultation with Dr. Marco [facility] infectious disease Skin/Wound/Dressing Care Report to your healthcare provider any signs of infection, such as:: chills, fever, night sweats, unusual drainage and unusual redness Visit Report/Discharge Packet Instructions: DI for Prescription Opioid Use, DI for Incision and Drainage of a Joint, [facility]: Wound Care Stand Alone Forms: Surgery Discharge Discharge Data Primary Care Provider: Abby Bocanegra
== END 2021-12-30 09:31 | disposition home or self-care (01) | DRG 492 ==
LOC: ED 19:46 → AC 19:57
PROVIDERS: Emergency Medicine; Orthopaedic Surgery; Student in an Organized Health Care Education/Training Program; Admitting Provider Nurse Practitioner Family; Emergency Provider Emergency Medicine; PCP Physician Assistant Medical; Visit Provider Nurse Practitioner Family
PROC: 0SBF4ZZ Excision of Right Ankle Joint, Percutaneous Endoscopic Approach (ICD-10-PCS; principal; 2021-12-24 20:30)
DX: M00.071 Staphylococcal arthritis, right ankle and foot (principal); I33.0 Acute and subacute infective endocarditis; I48.20 Chronic atrial fibrillation, unspecified; B95.61 Methicillin susceptible Staphylococcus aureus infection as the cause of diseases classified elsewhere; I10 Essential (primary) hypertension; I25.10 Atherosclerotic heart disease of native coronary artery without angina pectoris; E78.5 Hyperlipidemia, unspecified; N40.0 Benign prostatic hyperplasia without lower urinary tract symptoms; Z95.1 Presence of aortocoronary bypass graft; Z79.01 Long term (current) use of anticoagulants; Z20.822 Contact with and (suspected) exposure to COVID-19; M25.571 Pain in right ankle and joints of right foot; M19.071 Primary osteoarthritis, right ankle and foot
CPT/HCPCS: 36415; 36569; 36573; 36592; 71045; 73610; 80048; 83735; 84550; 85025; 85651; 86140; 87040; 87070; 87075; 87077; 87147; 87150; 87185; 87186; 87205; 87635; 89051; 93306; 93971; 96374; 97110; 97116; 97162; 99283; 99284; C9803; J0330; J0690; J0696; J1100; J1170; J1642; J2270; J2405; J2704; J3010

== ENCOUNTER 2022-01-08 18:24 | Emergency (ER) | payer MEDICARE, OTHER, SELFPAY ==
[2021-12-24 23:09] VITALS: BMI 26.9
[2022-01-08 19:36] VITALS: BP 113/67; PULSE 84; RESP 19; TEMP 36.9; O2SAT 98; BMI 26.2
[2022-01-08] MEDS: cefTRIAXone 2,000 MG in SODIUM CHLORIDE 0.9% 100 ML 200 MG IV (19:53)
--- NOTE | 2022-01-08 20:27 | ED_ITS ---
HPI - Recheck/Abnormal Lab/Rx General Chief Complaint: Recheck/Abnormal Lab/Rx Stated Complaint: Failed PICC line Time Seen by Provider: 01/08/22 20:27 Source: patient Mode of arrival: Ambulatory History of Present Illness HPI narrative: 71-year-old male nonsmoker with recent diagnosis of right ankle septic arthritis presents at the request of his infectious disease provider. He is had a PICC line receiving daily antibiotics and during his last administration it was notably leaking. He was sent here to pull the PICC line and infectious disease requests a single dose of Rocephin 2 g IV. She states she will set him up for a PICC line tomorrow. Overall the infectious process is improving. He denies any systemic findings such as fever, chills nor nausea or vomiting. He has no pain, redness or swelling at the PICC site Related Data Home Medications Medication Instructions Recorded Confirmed aspirin 81 mg tablet,delayed 81 mg PO QDAY #30 tabs 12/04/15 12/24/21 release atorvastatin 40 mg tablet (Lipitor) 40 mg PO HS #30 tabs 12/04/15 12/24/21 clobetasol-emollient 0.05 % 1 param topical BID ##30 12/04/15 12/25/21 topical cream coQ10 (ubiquinol) 100 mg capsule 100 mg PO BEDTIME ##0 12/04/15 12/24/21 latanoprost 0.005 % eye drops 1 drp OU HS #2.5 mL 12/04/15 12/24/21 (Xalatan) metoprolol tartrate 25 mg tablet 12.5 mg PO BID #0 tabs 12/04/15 12/24/21 tamsulosin 0.4 mg capsule (Flomax) 0.4 mg PO QDAY #0 caps 12/04/15 12/24/21 Previous Rx's Medication Instructions Recorded bisacodyl 10 mg rectal suppository 10 mg MI DAILY PRN Constipation 12/30/21 #30 ea cefazolin 2 gram/100 mL in 0.9 % 100 ml IV .q8 #9,000 mL 12/30/21 sodium chloride intravenous solution oxycodone 5 mg tablet 10 mg PO Q3HR PRN Pain, Moderate 12/30/21 (4-6) #30 tabs polyethylene glycol 3350 17 gram 17 gm PO DAILY #60 ea 12/30/21 oral powder packet Allergies Allergy/AdvReac Type Severity Reaction Status Date / Time No Known Drug Allergies Allergy Verified 01/08/22 19:36 Review of Systems Review of Systems Narrative: GENERAL: Denies chills, fatigue, malaise, fever, sweats. HEENT: Denies sinus pain, ear pain, sore throat, difficulty swallowing, dizziness. RESPIRATORY: Denies dyspnea, cough, wheezing, hemoptysis, sputum. CARDIOVASCULAR: Denies chest pain, palpitations, orthopnea, edema, GASTROINTESTINAL: Denies nausea, vomiting, abdominal pain, diarrhea, constipa tion, melena. : Denies dysuria, frequency, incontinence, hematuria, urinary retention. MUSCULOSKELETAL: denies weakness, joint pain, or bony pain SKIN: Denies rash, skin lesions, or other NEUROLOGIC: Denies weakness, headache, numbness, change in speech, confusion, seizures, incoordination. PSYCHIATRIC: No concerning psychosocial issues. 12 point review of systems is negative except for those stated above Patient History Medical History BPH (benign prostatic hyperplasia) Coronary artery disease Dyslipidemia Hypertension Surgical History History of back surgery Hx of CABG Family History Mother Coronary artery disease Father Cancer Social History household members: spouse Smoking Status: Never smoker Smoking Status: Never smoker alcohol intake frequency: a few times a week Substance Use Type: does not use Exam Narrative Exam Narrative: GEN: AOx3 and in mild distress EYES: Pupils are equal, round, and reactive to light and accommodation. Extraoccular muscles are intact bilaterally. There is no subconjunctival hemorrhage or exudate. CHEST: Lungs are clear to auscultation bilaterally and free of wheezes, rales, or rhonchi. Heart rate is regular rhythm, there are no murmurs, clicks, rubs, or gallops. There is no chest wall tenderness. ABD: Abdomen is soft and nontender. There is no guarding or rebound. Bowel sounds are normal in all 4 quadrants. There is no mass or organomegaly. EXT: Full painless ROM of all extremities with no loss of sensation or strength. PICC in left upper arm, easily removed, no swelling or redness at the site. Erythema proximal to right ankle consistent with diagnosis of known septic arthritis SKIN: Warm, pink, and dry. No erythema or rash Initial Vital Signs Initial Vital Signs: Vital Signs Temperature 98.5 F 01/08/22 19:36 Pulse Rate 84 01/08/22 19:36 Respiratory Rate 19 01/08/22 19:36 Blood Pressure 113/67 01/08/22 19:36 Pulse Oximetry 98 01/08/22 19:36 Oxygen Delivery Method 01/08/22 19:36 Course Orders Ordered: Discontinued Medications Ceftriaxone Sodium 2,000 mg/ (Sodium Chloride) 100 mls @ 200 mls/hr IV NOW ONE Stop: 01/08/22 19:37 Last Infusion: 01/08/22 20:07 Dose: 0 mls/hr Documented By: Admin: 01/08/22 19:53 Dose: 200 mls/hr Documented By: ZUHAIR Vital Signs Vital signs: Vital Signs - 8 hr 01/08/22 19:36 Temperature 98.5 F Pulse Rate 84 Respiratory Rate 19 Blood Pressure 113/67 Pulse Oximetry 98 Oxygen Delivery Method Room Air MDM - Recheck/Abnormal Lab/Rx MDM Narrative Medical decision making narrative: PICC line pulled, sent for culture which is expected to be positive given known bacteremia. Peripheral IV placed in order to administer Rocephin 2 g IV piggyback. Return precautions discussed and questions answered to his apparent satisfaction Discharge Plan Departure Patient Disposition: Home Clinical Impression: PICC line infiltration Activity Restrictions/Additional Instructions: *You have been diagnosed with [PICC line infiltration and removal] *What to do: *Please continue to take your regular medications as directed. *Please follow up with your Infectious Disease provider tomorrow, she plans to get you another PICC line tomorrow *Return to Emergency Department if you should have any new, worsening or concerning symptoms Prescriptions: No Action atorvastatin [Lipitor] 40 MG tablet 40 mg PO HS Qty: 30 tamsulosin [Flomax] 0.4 MG capsule,extended release 24hr 0.4 mg PO QDAY Qty: 0 metoprolol tartrate 25 MG tablet 12.5 mg PO BID Qty: 0 aspirin 81 MG tablet,delayed release (DR/EC) 81 mg PO QDAY Qty: 30 latanoprost [Xalatan] 0.005 % drops 1 drp OU HS Qty: 2.5 clobetasol-emollient 0.05 % cream 1 param Topical BID Qty: 30 coQ10 (ubiquinol) 100 MG capsule 100 mg PO BEDTIME Qty: 0 cefazolin in 0.9% sod chloride 2 gram/100 mL solution 100 ml IV .q8 Qty: 9000 0RF oxycodone 5 mg Tablet 10 mg PO Q3HR PRN (Reason: Pain, Moderate (4-6)) Qty: 30 0RF polyethylene glycol 3350 17 gram Powder In Packet 17 gm PO DAILY Qty: 60 0RF bisacodyl 10 mg Suppository 10 mg MI DAILY PRN (Reason: Constipation) Qty: 30 0RF Referrals: Barbara Lara MD [Non-Staff] - Abby Bocanegra PA-C [Primary Care Provider] - Visit Report Forms: Patient Portal/API
[2022-01-08 20:36] VITALS: BP 99/56; PULSE 73; RESP 16; O2SAT 97
== END 2022-01-08 20:40 | disposition home or self-care (01) ==
PROVIDERS: Emergency Provider Emergency Medicine; PCP Physician Assistant Medical
DX: T82.898A Other specified complication of vascular prosthetic devices, implants and grafts, initial encounter (principal)
CPT/HCPCS: 96374; 99283; 99284; J0696

== ENCOUNTER → 2022-01-15 12:59 | Outpatient (CLI) | payer MEDICARE, OTHER, SELFPAY ==
[2021-12-24 23:09] VITALS: BMI 26.9
[2022-01-15 14:03] LABS: Add Manual Diff / Slide Review NO; Basophils Absolute Auto 0 /uL (0-100); Basophils Percent Auto 0.5 % (0-2); Eosinophils Absolute Auto 0 /uL (0-450); Eosinophils Percent Auto 0.3 % (2-4); Hematocrit 42.1 % (41-53); Hemoglobin 14.3 g/dL (13.5-17.5); Lymphocytes Absolute Auto 1600 /uL (1100-4500); Lymphocytes Percent Auto 18.4 % (25-40); Mean Corpuscular HGB Conc 33.9 % (30-36); Mean Corpuscular Hemoglobin 30.2 PG (26-34); Mean Corpuscular Volume 89.1 fL (80-100); Monocytes Absolute Auto 700 /uL (0-900); Monocytes Percent Auto 8.1 % (3-14); Neutrophils Absolute Auto 6500 /uL (1500-7000); Neutrophils Percent Auto 72.7 % (50-75); Platelet Count 349 X10^3/uL (150-400); Red Blood Cell Count 4.73 X10^6/uL (4.5-5.9); Red Cell Distribution Width 13.5 % (11.6-14.8); White Blood Cell Count 8.9 X10^3/uL (4.5-11.0)
[2022-01-15 19:12] LABS: Alanine Aminotransferase 19 IU/L (<50); Albumin 3.6 g/dL (3.5-5.0); Alkaline Phosphatase 89 U/L (38-126); Aspartate Aminotransferase 28 IU/L (17-59); BUN Creatinine Ratio 22.4 (6-22); Bilirubin Total 0.4 mg/dL (0.2-1.3); Blood Urea Nitrogen 19 mg/dL (9-20); Calcium 9.2 mg/dL (8.4-10.2); Carbon Dioxide 30 mmol/L (22-32); Chloride 100 mmol/L (98-107); Estimated Glomerular Filt Rate > 60 mL/min (>60); Globulin 3.5 g/dL (1.7-4.1); Glucose 97 mg/dL (80-110); HEMOLYSIS < 15 (0-50); Potassium 4.4 mmol/L (3.4-5.1); Sodium 139 mmol/L (137-145); Total Protein 7.1 g/dL (6.3-8.2)
== END ==
PROVIDERS: PCP Physician Assistant Medical; Referring Provider Internal Medicine Infectious Disease; Visit Provider Internal Medicine Infectious Disease
DX: M00.071 Staphylococcal arthritis, right ankle and foot (principal)
CPT/HCPCS: 36415; 80053; 85025; 86140

== ENCOUNTER → 2022-01-25 06:57 | Outpatient (CLI) | payer MEDICARE, OTHER, SELFPAY ==
[2021-12-24 23:09] VITALS: BMI 26.9
--- NOTE | 2022-01-25 | DI.MRI.S_ITS ---
PROCEDURE: MR ANKLE RT WO/W CON INDICATIONS: SWELLING/EVAL FOR ABSCESS AFTER I D AND ABX TECHNIQUE: Noncontrast sagittal T1 spin echo and T2 fast spin echo with fat saturation, axial proton density fast spin echo and T2 fast spin echo with fat saturation, axial T1 spin echo with fat saturation, coronal T1 spin echo and T2 fast spin echo with fat saturation through the ankle/hindfoot. Post-contrast axial, coronal, and sagittal T1 spin echo with fat saturation through the ankle/hindfoot. COMPARISON: None. FINDINGS: Image quality: Excellent. Bones and joints: Complex appearing fluid within tibiotalar joint is seen with markedly thickened synovial lining and enhancement as well as heterogeneous enhancement within the joint fluid concerning for septic joint fluid. There is extensive marrow edema throughout distal tibial plafond, adjacent talus and talar dome as well as superior and distal portion of calcaneus. Questionable bony erosion involving superior cortex of distal calcaneus adjacent to subtalar joint is seen.. Heterogeneous contrast enhancement in the area of marrow edema is noted. Osteoarthritic changes are noted throughout midfoot and hindfoot joints. Osteochondral injuries of talar dome cannot be excluded. Medial structures: The posterior tibialis is markedly thickened with small amount of fluid distending tendon sheath at the level of subtalar joint, and distal talus. The, flexor digitorum longus, and flexor hallucis longus tendons are intact. The posterior tibial neurovascular bundle appears normal within the tarsal tunnel, without extrinsic mass effect. The deltoid ligament and spring ligament are thickened suggestive of ligament sprain. Lateral structures: The anterior talofibular, calcaneofibular, and posterior talofibular ligaments appear markedly attenuated. More superiorly, the anterior and posterior tibiofibular ligaments appear intact, as is the intermalleolar ligament. The tibiofibular syndesmosis is normal in width at 2 mm or less. The peroneus longus and brevis tendons are mildly thickened. Adjacent bony peroneal tubercle and retrotrochlear prominence are normal in size. The sinus tarsi demonstrates normal fatty signal, without edema, fibrosis, or cyst formation. Visualized sinus tarsi components (cervical ligament, interosseous talocalcaneal ligament, roots of the inferior extensor retinaculum) appear normal. The calcaneonavicular and calcaneocuboid components of the bifurcate ligament appear intact. The dorsal calcaneocuboid ligament appears intact. Anterior structures: The tibialis anterior, extensor hallucis longus, and extensor digitorum longus tendons appear intact. The dorsal talonavicular ligament appears intact. Posterior and plantar structures: Achilles tendon is intact. Medial and lateral bands of the plantar fascia are of normal thickness. No abductor digiti quinti muscle atrophy to suggest [place] neuropathy. IMPRESSION: 1. Complex appearing moderate to large tibiotalar joint effusion with thickened synovial lining and heterogeneous contrast enhancement. Extensive marrow edema involving distal tibial plafond, talus and calcaneus with questionable erosive changes involving superior aspect of distal calcaneus adjacent to subtalar joint. Constellation of finding is concerning for septic joint with osteomyelitis. 2. Significant posterior tibialis tendinosis and mild peroneus tendinosis. Extensor and Achilles tendons are intact. 3. Low-grade medial ankle ligament sprain. Moderate grade sprain/partial-thickness tear involving anterior and posterior talofibular ligaments and calcaneofibular ligament. 4. Edema involving visualized plantar foot muscles concerning for myositis. No discrete intramuscular fluid collection. Dictated by: Ramon Lowry M.D. on 01/26/2022 at 10:43 Approved by: Ramon Lowry M.D. on 01/26/2022 at 10:56
== END ==
PROVIDERS: PCP Physician Assistant Medical; Referring Provider Orthopaedic Surgery Foot and Ankle Surgery; Visit Provider Orthopaedic Surgery Foot and Ankle Surgery
DX: M00.071 Staphylococcal arthritis, right ankle and foot (principal); M25.474 Effusion, right foot; S93.491A Sprain of other ligament of right ankle, initial encounter; S93.411A Sprain of calcaneofibular ligament of right ankle, initial encounter
CPT/HCPCS: 73723; A9579

== ENCOUNTER 2022-01-29 11:53 | Day surgery (SDC) | payer MEDICARE, OTHER, SELFPAY ==
[2021-12-24 23:09] VITALS: BMI 26.9
[2022-01-29] VITALS (8 sets, daily range): BP systolic 117–128; BP diastolic 68–91; PULSE 68–82; RESP 11–23; TEMP 36.1–36.4; O2SAT 96–100; BMI 24.3
--- NOTE | 2022-01-29 12:42 | PM.PREOP ---
Pre-operative Note COVID-19 COVID-19 status: Negative Criteria for continued procedure: Expected advancement of disease process Interval Note History & Physical reviewed/Exam performed by Physician: Yes Changes to H&P: No
[2022-01-29] MEDS: LACTATED RINGERS 1,000 ML 42 ML IV (13:16)
[2022-01-29 13:17] LABS: COVID19 -Nasal RAPID Negative (Negative)
[2022-01-29] MEDS: CEFAZOLIN 2 GM/100 ML PREMIX 100 ML IV (14:14)
--- NOTE | 2022-01-29 14:39 | SUR.OPER ---
Supine on padded OR bed, head on pillow, arms secured on padded arm boards at <90 degrees abduction, legs uncrossed, safety belt at thigh, tape over blanket over lower legs.
[2022-01-29] MEDS: BUPIVACAINE 0.25% (PF) VIAL 30 ML INJ (15:15)
--- NOTE | 2022-01-29 15:44 | SUR.OPER ---
sandbag under right hip
--- NOTE | 2022-01-29 15:54 | PM.OP.1 ---
Operative Date/Time/Diagnoses Date of procedure: 01/29/22 Time of procedure: 14:10 Pre-op diagnosis: Right ankle septic arthritis Right ankle and foot osteomyelitis Post-op diagnosis: same Procedure & Clinicians Procedure: Arthrotomy and biopsy right ankle CPT code 49209 Arthrotomy a biopsy subtalar joint right foot CPT code 68711 Deep bone biopsy right calcaneus and right distal tibia CPT code 88345 This procedure was performed with a modifier 58 for a more extensive procedure. Patient had a previous I&D of a septic right ankle about a month ago. Required return to operating room for continued swelling and increasing pain and erythema in concerning MRI for both the tibiotalar and subtalar joint involvement despite adequate course of IV antibiotics. Was brought back to the operating room for extensive irrigation debridement synovectomy and bone biopsy Same procedure as scheduled: Yes Indications: Patient is a 71-year-old male has a history of a right septic ankle status post I&D by Dr. Miranda about a month ago. Grew MSSA. He has been maintained on 4 weeks of IV antibiotics and managed by schedule Infectious Disease doctor Nilda. He has had continued swelling and increasing pain low-grade fevers. MRI concerning for persistent infection as well is osteomyelitis of the distal tibia talus and calcaneus. He is indicated for repeat irrigation debridement, synovectomy and bone biopsy. The risks and benefits of the procedure have been discussed with the patient and given the opportunity to ask questions. The risks of surgery include but are not limited to infection, malunion, nonunion, persistence of pain, damage to nerves and blood vessels, posttraumatic arthritis, DVT, PE, coardiopulmonary complications and . The patient expressed a thorough understanding of the risks and benefits of surgery and has elected to proceed. Consent was signed. Surgeon: Viji Flores Click Yes if Unassisted: Yes Anesthesia Type: General and Local Operative Notes Findings: No gross purulence. There was scant murky fluid around the sinus tarsi and tibiotalar joint. Cartilage Fissuring along the lateral shoulder of the talus. There is a small white cartilage fragments noted at the tibiotalar joint. Reactive synovitis. Synovium was sent for culture as well as bone biopsies from the distal tibia and anterior calcaneus Closure Type: primary Specimen(s): other (Tissues and bone sent for culture, aerobic anaerobic, AFB, fungal, PCR) Applied: drain(s) (Medium Hemovac drain right ankle) Estimated Blood Loss (mL): 20 Blood products transfused: none Tourniquet time (min): 39 Procedure in detail: Patient was seen in the preoperative area the site of surgery marked informed consent confirmed. He was brought back to the operating room by the anesthesia team positioned supine on operative table. General anesthetic was administered. All bony prominences well padded. Well-padded thigh tourniquet was placed. A formal time-out procedure was performed confirming the patient's side site of surgery administration of appropriate preoperative antibiotics. The patient had been on scheduled antibiotics for treatment of his septic arthritis. Attention was turned to the right lower extremity. Hawkeye exsanguination was utilized and the tourniquet raised on the thigh to 250 mmHg and stayed there for 39 minutes. Attention was turned to the right ankle. There is moderate swelling around the lateral ankle and healed the previous median lateral arthrotomy incisions. The anterolateral arthrotomy incision was extended both proximally and distally along the anterior lateral ankle and then down over the sinus tarsi toward the 4th metatarsal base. This was taken down through the skin subcutaneous tissues. Meticulous dissection was taken to identify the superficial peroneal nerve branch and protected throughout the case. The tibiotalar joint was then entered. There was fissuring noted along the lateral shoulder of the talus. And there was some scant murky fluid as well as small white debris that appeared to be small cartilage pieces. There was reactive synovium that was excised and sent for culture. No obvious abscess was demonstrated. Dissection was then taken distally and the extensor digitorum brevis was released proximally and reflected to expose the sinus tarsi. Sinus tarsi was entered into the subtalar joint. Again there was some murky fluid and devitalized fat but no gross purulence. Synovium from the subtalar joint was also sent. Then the DM she needle was taken and a bone core was taken from the anterior calcaneus corresponding to the area of bone edema on MRI. At this was sent for culture at additionally the [facility] she needle was used to take a core from the distal tibia this was also sent. Quality of the bone the cores appeared normal. At this point the ankle and subtalar joint were thoroughly irrigated with 4 L of sterile saline using the cysto tubing. Next gloves and drapes and instruments were changed. A medium Hemovac drain was placed into the ankle and subtalar joint exiting out the medial ankle. One capsule was closed with 2-0 PDS tourniquet was released and hemostasis achieved. Drain was but suction. Subcutaneous tissue was closed with 4-0 Monocryl in the skin with 3-0 nylon suture. 25 cc of 0.25% Marcaine with epinephrine was used for local anesthetic. Dressing was Xeroform gauze, Kerlix and an Thom wrap was placed. The patient was woken from anesthetic and taken to the recovery room in good condition. There were no immediate complications from this procedure. Counts were correct. Complications: none Post-operative Condition: stable Disposition: PACU Plan for aftercare: Patient will be discharged home. He will follow up in clinic this week for drain removal. He will remain nonweightbearing or toe-touch on the right lower extremity. He may restart his anticoagulation tomorrow. Dressing can be reinforced as needed. Sutures will stay in place 2-4 weeks. We will follow-up cultures. He will continue his home IV antibiotics.
[2022-02-13 13:41] LABS: Bacteria Det by PCR Univ WA NONE DETECTED
[2022-02-13 13:44] LABS: Bacteria Det by PCR Univ WA NONE DETECTED
== END 2022-01-29 16:50 | disposition home or self-care (01) ==
PROVIDERS: PCP Physician Assistant Medical; Referring Provider Orthopaedic Surgery Foot and Ankle Surgery; Visit Provider Orthopaedic Surgery Foot and Ankle Surgery
PROC: (CPT 28050; principal; 2022-01-29 15:15)
DX: M00.071 Staphylococcal arthritis, right ankle and foot (principal); M86.8X7 Other osteomyelitis, ankle and foot; M65.871 Other synovitis and tenosynovitis, right ankle and foot; I48.91 Unspecified atrial fibrillation; I25.10 Atherosclerotic heart disease of native coronary artery without angina pectoris; Z20.822 Contact with and (suspected) exposure to COVID-19
CPT/HCPCS: 28050; 20245; 27620; 87070; 87075; 87102; 87116; 87205; 87206; 87635; 87801; C9803; J0690; J1100; J2704; J3010

== ENCOUNTER → 2022-02-13 11:49 | Outpatient (ROUT) | payer MEDICARE, OTHER, SELFPAY ==
[2021-12-24 23:09] VITALS: BMI 26.9
[2022-02-13 11:58] LABS: Add Manual Diff / Slide Review NO; Basophils Absolute Auto 0 /uL (0-100); Basophils Percent Auto 0.7 % (0-2); Eosinophils Absolute Auto 100 /uL (0-450); Eosinophils Percent Auto 1.1 % (2-4); Hematocrit 42.9 % (41-53); Hemoglobin 14.2 g/dL (13.5-17.5); Lymphocytes Absolute Auto 1700 /uL (1100-4500); Lymphocytes Percent Auto 27.7 % (25-40); Mean Corpuscular HGB Conc 33.1 % (30-36); Mean Corpuscular Volume 90.7 fL (80-100); Monocytes Absolute Auto 500 /uL (0-900); Neutrophils Absolute Auto 3800 /uL (1500-7000); Neutrophils Percent Auto 62.5 % (50-75); Platelet Count 169 X10^3/uL (150-400); Red Blood Cell Count 4.73 X10^6/uL (4.5-5.9); Red Cell Distribution Width 14.7 % (11.6-14.8); White Blood Cell Count 6.1 X10^3/uL (4.5-11.0)
[2022-02-13 12:04] LABS: Alanine Aminotransferase 23 IU/L (<50); Albumin 3.7 g/dL (3.5-5.0); Albumin Globulin Ratio 1.4 (1.0-2.8); Alkaline Phosphatase 81 U/L (38-126); Aspartate Aminotransferase 23 IU/L (17-59); BUN Creatinine Ratio 22.5 (6-22); Bilirubin Total 0.6 mg/dL (0.2-1.3); Blood Urea Nitrogen 16 mg/dL (9-20); C-Reactive Protein Quant < 0.5 mg/dL (<1.0); Calcium 9.2 mg/dL (8.4-10.2); Carbon Dioxide 27 mmol/L (22-32); Chloride 102 mmol/L (98-107); Estimated Glomerular Filt Rate > 60 mL/min (>60); Globulin 2.7 g/dL (1.7-4.1); Glucose 96 mg/dL (80-110); HEMOLYSIS < 15 (0-50); Potassium 4.6 mmol/L (3.4-5.1); Sodium 138 mmol/L (137-145); Total Protein 6.4 g/dL (6.3-8.2)
== END ==
PROVIDERS: PCP Physician Assistant Medical; Visit Provider Internal Medicine Infectious Disease
DX: T81.40XA Infection following a procedure, unspecified, initial encounter (principal); M00.9 Pyogenic arthritis, unspecified
CPT/HCPCS: 80053; 85025; 86140

== ENCOUNTER → 2022-02-23 09:01 | Outpatient (CLI) | payer MEDICARE, OTHER, SELFPAY ==
[2021-12-24 23:09] VITALS: BMI 26.9
[2022-02-23 11:19] LABS: Add Manual Diff / Slide Review NO; Basophils Absolute Auto 0 /uL (0-100); Basophils Percent Auto 0.8 % (0-2); Eosinophils Absolute Auto 100 /uL (0-450); Eosinophils Percent Auto 1.3 % (2-4); Hematocrit 45.8 % (41-53); Hemoglobin 15.5 g/dL (13.5-17.5); Lymphocytes Absolute Auto 1700 /uL (1100-4500); Lymphocytes Percent Auto 29.2 % (25-40); Mean Corpuscular HGB Conc 33.9 % (30-36); Mean Corpuscular Hemoglobin 30.6 PG (26-34); Monocytes Absolute Auto 600 /uL (0-900); Monocytes Percent Auto 10.9 % (3-14); Neutrophils Absolute Auto 3400 /uL (1500-7000); Neutrophils Percent Auto 57.8 % (50-75); Platelet Count 200 X10^3/uL (150-400); Red Blood Cell Count 5.09 X10^6/uL (4.5-5.9); Red Cell Distribution Width 15.1 % (11.6-14.8); White Blood Cell Count 5.9 X10^3/uL (4.5-11.0)
[2022-02-23 11:54] LABS: Alanine Aminotransferase 14 IU/L (<50); Albumin 4.1 g/dL (3.5-5.0); Albumin Globulin Ratio 1.5 (1.0-2.8); Alkaline Phosphatase 84 U/L (38-126); Aspartate Aminotransferase 21 IU/L (17-59); BUN Creatinine Ratio 18.8 (6-22); Bilirubin Total 0.7 mg/dL (0.2-1.3); Blood Urea Nitrogen 16 mg/dL (9-20); C-Reactive Protein Quant < 0.5 mg/dL (<1.0); Calcium 9.9 mg/dL (8.4-10.2); Carbon Dioxide 32 mmol/L (22-32); Chloride 98 mmol/L (98-107); Estimated Glomerular Filt Rate > 60 mL/min (>60); Globulin 2.8 g/dL (1.7-4.1); Glucose 87 mg/dL (80-110); HEMOLYSIS < 15 (0-50); Potassium 4.7 mmol/L (3.4-5.1); Sodium 140 mmol/L (137-145); Total Protein 6.9 g/dL (6.3-8.2)
== END ==
PROVIDERS: PCP Physician Assistant Medical; Referring Provider Internal Medicine Infectious Disease; Visit Provider Internal Medicine Infectious Disease
DX: M00.071 Staphylococcal arthritis, right ankle and foot (principal)
CPT/HCPCS: 36415; 80053; 85025; 86140

== ENCOUNTER 2022-10-11 08:58 | Day surgery (SDC) | payer MEDICARE, OTHER, SELFPAY ==
[2021-12-24 23:09] VITALS: BMI 26.9
--- NOTE | 2022-10-11 | PATH_ITS ---
[facility] Accession Number: [id number] No. of containers..03 Tissue . 01 Material submitted: . PART A: cecum - CECAL POLYPS 2 PART B: colon - ASCENDING POLYP PART C: colon - RECTAL POLYP . 01 Diagnosis: A. Cecum, Polyps x2, Biopsies: Tubular adenomas. . B. Ascending Colon, Polyp, Biopsy: Tubular adenoma. . C. Rectum, Polyp, Biopsy: Tubular adenoma. MRV 10/22/2022 1500 Local . 01 Electronically signed: . Nori Lovett MD, Pathologist NPI- [id number] . 01 Gross description: . Part A: CECAL POLYPS 2: Received in formalin are 3 fragment(s) of holl[place], soft tissue measuring 0.9 x 0.5 x 0.4 cm to 0.3 x 0.3 x 0.2 cm submitted entirely in 1 cassette(s) Part B: ASCENDING POLYP : Received in formalin is 1 fragment(s) of holl[place], soft tissue measuring 0.9 x 0.3 x 0.2 cm submitted entirely in 1 cassette(s) Part C: RECTAL POLYP: Received in formalin is 1 fragment(s) of hollings[place], soft tissue measuring 0.4 x 0.4 x 0.3 cm submitted entirely in 1 cassette(s) /[facility] 10/18/2022 1242 Local . 01 Pathologist provided ICD-10: D12.0, D12.8 . 01 CPT . 040310, 146947, 543189 Specimen Comment: A courtesy copy of this report has been sent to [phone] Performed at: 01 [facility] [address], [place], [place] [id number] MD Indra Chang MD Phone: [phone]
[2022-10-11 09:19] VITALS: BP 139/82; PULSE 54; RESP 16; TEMP 36.3; O2SAT 98; BMI 26.4
[2022-10-11] MEDS: LACTATED RINGERS 1,000 ML 42 ML IV (09:35)
--- NOTE | 2022-10-11 09:57 | PM.HP.1 ---
History of Present Illness History of Present Illness Date Patient Seen: 10/11/22 Time Patient Seen: 09:57 Chief complaint: Screening Colonoscopy Narrative: Abdirahman is a 72-year-old man who is here for colonoscopy. His last was about 10 years ago and 1 small polyp was resected. Abdirahman reports that he did not need any anesthesia at that time. [facility] Medical History BPH (benign prostatic hyperplasia) Coronary artery disease Dyslipidemia Hypertension Surgical History History of back surgery Hx of CABG Family History Mother Coronary artery disease Father Cancer Social History household members: spouse Smoking Status: Never smoker Meds Home Medications and Allergies Home Medications Medication Instructions Recorded Confirmed Type atorvastatin 40 mg tablet (Lipitor) 40 mg PO HS #30 tabs 12/04/15 10/11/22 History coQ10 (ubiquinol) 100 mg capsule 100 mg PO BEDTIME ##0 12/04/15 10/11/22 History latanoprost 0.005 % eye drops 1 drp OU HS #2.5 mL 12/04/15 10/11/22 History (Xalatan) tamsulosin 0.4 mg capsule (Flomax) 0.4 mg PO QDAY #0 caps 12/04/15 10/11/22 History Vitamin D2 5,000 PO DAILY 01/29/22 History apixaban 5 mg tablet (Eliquis) 5 mg PO BID 01/29/22 10/11/22 History acetaminophen 325 mg capsule 650 mg PO Q4H PRN pain 10/11/22 10/11/22 History (Tylenol) sotalol 80 mg tablet 80 mg PO BID 10/11/22 10/11/22 History Allergies Allergy/AdvReac Type Severity Reaction Status Date / Time No Known Drug Allergies Allergy Verified 10/11/22 09:13 Exam Vital Signs (past 8 hours): - 10/11/22 09:19 Temperature 97.4 F L Pulse Rate 54 L Respiratory Rate 16 Blood Pressure 139/82 Pulse Oximetry 98 Oxygen Delivery Method Room Air Oxygen Delivery Method Room Air Const General: healthy appearing Assessment & Plan Assessment and plan (1) Colon cancer screening: Status: Acute Plan We reviewed the risks and benefits of colonoscopy for colon cancer screening and he would like to proceed
--- NOTE | 2022-10-11 10:36 | PM.OP.COLON ---
Operative Date/Time/Diagnoses Date of procedure: 10/11/22 Time of procedure: 10:37 Pre-op diagnosis: Colon cancer screening Post-op diagnosis: same Procedure & Clinicians Study performed: Colonoscopy Same procedure as scheduled: Yes Surgeon: Sylvester Nicholson Procedure Notes Procedure in detail: Surgeon: Sylvester Nicholson MD Anesthesia: Jairo Montez CRNA Procedure: The patient was brought to the endoscopy suite, placed in left lateral decubitus position. The patient was connected to monitoring devices. A time-out was performed. Sedation was administered. Once the patient was adequately sedated, a digital rectal exam was performed and was normal. The scope was then inserted and advanced to the cecum where the appendiceal orifice was identified and photographed. The scope was then slowly withdrawn over greater than 6 minutes. The mucosa was thoroughly inspected. Were 2 polyps in the cecum. One was about a cm in 1 was about 5 mm. They were both removed a cold snare. There was a 5 mm polyp in the ascending colon removed with a cold snare. There was a 5 mm polyp in the upper rectum removed with the Jumbo forceps. The scope was retroflexed in the rectum. Internal hemorrhoids were noted. The scope was straightened and removed. The patient was awakened and brought to recovery. Scope withdrawal time: 16 minutes Sedation time: 23 minutes EBL: 5 mL Findings: 1 cm polyp in the cecum, 5 mm polyp in the cecum, 5 mm polyp in the ascending colon and 5 mm polyp in the rectum, internal hemorrhoids Post-procedure Disposition: PACU
[2022-10-11 10:39] VITALS: BP 100/43; PULSE 44; RESP 17; TEMP 36.6
[2022-10-11 10:44] VITALS: BP 90/50; PULSE 51; RESP 18; O2SAT 95
[2022-10-11 10:48] VITALS: BP 92/57; PULSE 51; RESP 17; O2SAT 97
[2022-10-11 10:54] VITALS: BP 94/43; PULSE 47; RESP 18; O2SAT 95
[2022-10-11 10:59] VITALS: BP 100/60; PULSE 49; RESP 15; TEMP 36.4; O2SAT 95
== END 2022-10-11 11:24 | disposition home or self-care (01) ==
PROVIDERS: PCP Physician Assistant Medical; Referring Provider Surgery; Visit Provider Surgery
PROC: 0DJD8ZZ Inspection of Lower Intestinal Tract, Via Natural or Artificial Opening Endoscopic (ICD-10-PCS; CPT 45378; principal; 2022-10-11 10:00)
DX: Z12.11 Encounter for screening for malignant neoplasm of colon (principal); K64.8 Other hemorrhoids; D12.0 Benign neoplasm of cecum; D12.2 Benign neoplasm of ascending colon; D12.8 Benign neoplasm of rectum; Z86.010 Personal history of colon polyps; I10 Essential (primary) hypertension; Z95.1 Presence of aortocoronary bypass graft
CPT/HCPCS: 45385; 45380; 93005; 93010; J2704

== ENCOUNTER 2022-10-12 16:44 | Emergency (ER) | payer MEDICARE, OTHER, SELFPAY ==
[2021-12-24 23:09] VITALS: BMI 26.9
[2022-10-12 16:46] VITALS: BP 124/80; PULSE 61; RESP 14; TEMP 36.8; O2SAT 96; BMI 26.4
--- NOTE | 2022-10-12 16:56 | DI.CT.S_ITS ---
PROCEDURE: CT CERVICAL SPINE WO CON INDICATIONS: Fall, thinners, hit chin TECHNIQUE: Noncontrast 3 mm thick sections acquired from the skull base to the T4 level. Sagittal and coronal reformats were then constructed. For radiation dose reduction, the following was used: automated exposure control, adjustment of mA and/or kV according to patient size. COMPARISON: None. FINDINGS: Image quality: Excellent. Bones: No fractures or dislocations. Mild to moderate degenerative change in the cervical spine most pronounced at C5-C6. Small posterior disc osteophyte complex at this level. Visualized superior ribs are intact. Post median sternotomy. Soft tissues: Prevertebral soft tissues are normal in thickness. No paravertebral hematomas. No apical pneumothoraces. Plaque at the carotid bulbs. IMPRESSION: No acute osseous abnormality. Dictated by: Hadley Mart M.D. on 10/12/2022 at 17:33 Approved by: Hadley Mart M.D. on 10/12/2022 at 17:36
--- NOTE | 2022-10-12 16:56 | DI.CT.S_ITS ---
PROCEDURE: CT HEAD/BRAIN WO CON INDICATIONS: Fall, thinners, hit chin TECHNIQUE: Noncontrast 4.5 mm thick angled axial sections acquired from the foramen magnum to the vertex, with coronal and sagittal reformats. For radiation dose reduction, the following was used: automated exposure control, adjustment of mA and/or kV according to patient size. COMPARISON: [facility], CT, CT FACIAL BONES WO CON, 10/12/2022, 17:03. FINDINGS: Image quality: Excellent. CSF spaces: Basal cisterns are patent. No extra-axial fluid collections. Ventricles are normal in size and shape. Brain: No midline shift. No intracranial masses or hemorrhage. No area of hypodensity in a large vascular distribution to suggest acute infarction. Periventricular hypodensity consistent with chronic microvascular ischemic change. Age-related parenchymal loss. Skull and face: Calvarium and visualized facial bones are intact, without suspicious lesions. Sinuses: Visualized sinuses and mastoids are clear. IMPRESSION: No acute intracranial abnormality. Dictated by: Hadley Mart M.D. on 10/12/2022 at 17:30 Approved by: Hadley Mart M.D. on 10/12/2022 at 17:33
--- NOTE | 2022-10-12 16:56 | DI.CT.S_ITS ---
PROCEDURE: CT FACIAL BONES WO CON INDICATIONS: Fall, thinners, hit chin TECHNIQUE: Noncontrast 2.5 mm thick axial images acquired from the mandible through the frontal sinuses, with coronal and sagittal reformatting. For radiation dose reduction, the following was used: automated exposure control, adjustment of mA and/or kV according to patient size. COMPARISON: [facility], CT, CT HEAD/BRAIN WO CON, 10/12/2022, 17:03. FINDINGS: Image quality: Excellent. Bones and teeth: Orbital gold are intact. Sinus gold show no fracture or deformity. Nasal bones and septum are intact. Visualized portions of the mandible demonstrate no fractures or subluxation. Zygomatic arches are intact. Pterygoid plates are intact. Visualized portions of the skull base and auditory canals are intact. Sinuses: Paranasal sinuses are aerated, without fluid levels, mucosal thickening, or mucoceles. Mastoid air cells are aerated. Soft tissues: No edema, masses, or fluid collections. No enlarged lymph nodes. No soft tissue lacerations or debris. Vascular: Visualized vascular structures appear normal in the absence of contrast. Bony vascular foramina and canals are intact. IMPRESSION: No acute osseous abnormality. Dictated by: Hadley Mart M.D. on 10/12/2022 at 18:05 Approved by: Hadley Mart M.D. on 10/12/2022 at 18:07
--- NOTE | 2022-10-12 19:21 | ED.FALL ---
HPI - Fall General Chief Complaint: Fall Stated Complaint: Face inj Time Seen by Provider: 10/12/22 18:11 Source: patient Mode of arrival: Ambulatory History of Present Illness HPI Narrative: 72-year-old male nonsmoker with history of coronary artery disease and GERD, on anticoagulation presents for evaluation of injury suffered as a consequence of a fall earlier today. He was climbing on a ladder and slid down, striking his chin on 1 of the rungs and resulted in a laceration of his chin. He denies any loss of consciousness and has full recall. He denies headache or blurred vision. He denies any malocclusion or bleeding in his mouth. He has no neck pain. He denies chest pain or shortness of breath. Denies any abdominal pain Related Data Home Medications Medication Instructions Recorded Confirmed atorvastatin 40 mg tablet (Lipitor) 40 mg PO HS #30 tabs 12/04/15 10/11/22 coQ10 (ubiquinol) 100 mg capsule 100 mg PO BEDTIME ##0 12/04/15 10/11/22 latanoprost 0.005 % eye drops 1 drp OU HS #2.5 mL 12/04/15 10/11/22 (Xalatan) tamsulosin 0.4 mg capsule (Flomax) 0.4 mg PO QDAY #0 caps 12/04/15 10/11/22 Vitamin D2 5,000 PO DAILY 01/29/22 apixaban 5 mg tablet (Eliquis) 5 mg PO BID 01/29/22 10/11/22 acetaminophen 325 mg capsule 650 mg PO Q4H PRN pain 10/11/22 10/11/22 (Tylenol) sotalol 80 mg tablet 80 mg PO BID 10/11/22 10/11/22 Allergies Allergy/AdvReac Type Severity Reaction Status Date / Time No Known Drug Allergies Allergy Verified 10/12/22 16:46 Review of Systems Review of Systems Narrative: GENERAL: Denies chills, fatigue, malaise, fever, sweats. HEENT: Denies sinus pain, ear pain, sore throat, difficulty swallowing, dizziness. RESPIRATORY: Denies dyspnea, cough, wheezing, hemoptysis, sputum. CARDIOVASCULAR: Denies chest pain, palpitations, orthopnea, edema, GASTROINTESTINAL: Denies nausea, vomiting, abdominal pain, diarrhea, constipation, melena. : Denies dysuria, frequency, incontinence, hematuria, urinary retention. MUSCULOSKELETAL: denies weakness, joint pain, or bony pain SKIN: See HPI NEUROLOGIC: Denies weakness, headache, numbness, change in speech, confusion, seizures, incoordination. PSYCHIATRIC: No concerning psychosocial issues. 12 point review of systems is negative except for those stated above Patient History Medical History BPH (benign prostatic hyperplasia) Coronary artery disease Dyslipidemia Hypertension Surgical History History of back surgery Hx of CABG Family History Mother Coronary artery disease Father Cancer Social History household members: spouse Smoking Status: Never smoker Smoking Status: Never smoker alcohol intake frequency: other Substance Use Type: does not use Exam Narrative Exam Narrative: GENERAL: [72] year old patient appears stated age. Well-developed patient, in mild distress. GCS 15 HEAD: 1.5cm slightly irregular laceration on chin, minimal bleeding. No foreign body. EYES: Pupils equal round and reactive. Extraocular motions intact. No scleral icterus. No injection or drainage. ENT: Nose without bleeding, purulent drainage. Throat without erythema, tonsillar hypertrophy or exudate. Airway patent. NECK: Trachea midline. Non tender CARDIOVASCULAR: Regular rate and rhythm without murmurs, gallops, or rubs. RESPIRATORY: Clear to auscultation. Breath sounds equal bilaterally. No wheezes, rales, or rhonchi. GASTROINTESTINAL: Abdomen soft, non-tender, nondistended. EXTREMITIES: No edema or joint tenderness. BACK: Nontender without deformity or crepitance. No flank tenderness. NEURO: AOx3. SKIN: No rash or erythema of visible areas Initial Vital Signs Initial Vital Signs: Vital Signs Temperature 98.2 F 10/12/22 16:46 Pulse Rate 61 10/12/22 16:46 Respiratory Rate 14 10/12/22 16:46 Blood Pressure 124/80 10/12/22 16:46 Pulse Oximetry 96 10/12/22 16:46 Oxygen Delivery Method Room Air 10/12/22 16:46 Procedures Laceration Repair Laceration 1: Site: face Size (cm): 1.5 Description: stellate Depth: simple, single layer Local Anesthetic: lidocaine 1% and with epi Amount of anesthesia used (mL): 3 Pre-repair: wound explored and cleansed with chlorhexadine Skin layer closed with: nylon Skin layer suture size: 6-0 Number of sutures: 3 Technique: simple, interrupted Course Orders Ordered: Discontinued Medications Diphtheria/Tetanus/Acell Pertussis (Tet,Diph,Pertuss(Acell),Vac/Pf 0.5 Ml Syringe) 0.5 ml IM .ONCE ONE Stop: 10/12/22 19:45 Last Admin: 10/12/22 19:49 Dose: 0.5 ml Documented By: SMITHA Vital Signs Vital signs: Vital Signs - 8 hr 10/12/22 19:47 Pulse Rate 58 L Respiratory Rate 16 Blood Pressure 187/84 H Pulse Oximetry 96 Oxygen Delivery Method Room Air Discharge Plan Departure Patient Disposition: Home Clinical Impression: Chin laceration Instructions: DI for Laceration Repair Activity Restrictions/Additional Instructions: *You have been diagnosed with [fall with head injury resulting in small chin laceration. As we discussed your history and physical exam are reassuring. CT scans of head, face and cervical spine are unremarkable and there is no evidence of bleeding or fracture.] *What to do: *Please continue to take your regular medications as directed. * Please keep the wound clean and dry to the best of your ability. Please monitor for signs of infection such as redness to the skin or increasing pain. Have the sutures/josee removed by your doctor in about 7 days. If you are unable to get into your doctor, we would be happy to remove the sutures/josee in that same timeframe. *Return to Emergency Department if you should have any new, worsening or concerning symptoms, such as [fever greater than 101 F, shaking chills, worsening pain, persistent vomiting or other bothersome symptoms] Prescriptions: No Action atorvastatin [Lipitor] 40 MG tablet 40 mg PO HS Qty: 30 tamsulosin [Flomax] 0.4 MG capsule,extended release 24hr 0.4 mg PO QDAY Qty: 0 latanoprost [Xalatan] 0.005 % drops 1 drp OU HS Qty: 2.5 coQ10 (ubiquinol) 100 MG capsule 100 mg PO BEDTIME Qty: 0 Eliquis 5 mg tablet 5 mg PO BID Patient Comments: Take 1 tablet by mouth twice a day 1 in am and o tab in pm Vitamin D2 5,000 PO DAILY sotalol 80 mg Tablet 80 mg PO BID acetaminophen [Tylenol] 325 mg Capsule 650 mg PO Q4H PRN (Reason: pain) Referrals: Abby Bocanegra PA-C [Primary Care Provider] - Stand Alone Forms: Patient Portal/API
[2022-10-12 19:47] VITALS: BP 187/84; PULSE 58; RESP 16; O2SAT 96
[2022-10-12] MEDS: TET,DIPH,PERTUSS(ACELL),VAC/PF 0.5 ML SYRINGE IM (19:49)
--- NOTE | 2022-10-12 19:50 | PC.NURSE ---
Upon DC, patient reports his last tetanus shot was in 2014. TDAP ordered.
== END 2022-10-12 19:58 | disposition home or self-care (01) ==
PROVIDERS: Emergency Provider Emergency Medicine; PCP Physician Assistant Medical
DX: S01.81XA Laceration without foreign body of other part of head, initial encounter (principal); W18.30XA Fall on same level, unspecified, initial encounter; Z23 Encounter for immunization
CPT/HCPCS: 12011; 70450; 70486; 72125; 90471; 99283; 99284; 90715

== ENCOUNTER 2022-10-19 10:04 | Emergency (ER) | payer MEDICARE, OTHER, SELFPAY ==
[2021-12-24 23:09] VITALS: BMI 26.9
--- NOTE | 2022-10-19 10:10 | ED_ITS ---
HPI - General Adult General Stated complaint: needs to have stitches removed Time Seen by Provider: 10/19/22 10:10 History of Present Illness HPI narrative: 72-year-old male presents for suture removal. He was seen and evaluated on October 12 after fall resulted in a chin laceration. Three sutures were placed. He denies any pain, redness, drainage fluid. He is otherwise well and free of complaint Related Data Home Medications Medication Instructions Recorded Confirmed atorvastatin 40 mg tablet (Lipitor) 40 mg PO HS #30 tabs 12/04/15 10/11/22 coQ10 (ubiquinol) 100 mg capsule 100 mg PO BEDTIME ##0 12/04/15 10/11/22 latanoprost 0.005 % eye drops 1 drp OU HS #2.5 mL 12/04/15 10/11/22 (Xalatan) tamsulosin 0.4 mg capsule (Flomax) 0.4 mg PO QDAY #0 caps 12/04/15 10/11/22 Vitamin D2 5,000 PO DAILY 01/29/22 apixaban 5 mg tablet (Eliquis) 5 mg PO BID 01/29/22 10/11/22 acetaminophen 325 mg capsule 650 mg PO Q4H PRN pain 10/11/22 10/11/22 (Tylenol) sotalol 80 mg tablet 80 mg PO BID 10/11/22 10/11/22 Allergies Allergy/AdvReac Type Severity Reaction Status Date / Time No Known Drug Allergies Allergy Verified 10/12/22 16:46 Review of Systems Review of Systems Narrative: GENERAL: Denies chills, fatigue, malaise, fever, sweats. HEENT: Denies sinus pain, ear pain, sore throat, difficulty swallowing, dizziness. RESPIRATORY: Denies dyspnea, cough, wheezing, hemoptysis, sputum. CARDIOVASCULAR: Denies chest pain, palpitations, orthopnea, edema, GASTROINTESTINAL: Denies nausea, vomiting, abdominal pain, diarrhea, constipation, melena. : Denies dysuria, frequency, incontinence, hematuria, urinary retention. MUSCULOSKELETAL: denies weakness, joint pain, or bony pain SKIN: See HPI NEUROLOGIC: Denies weakness, headache, numbness, change in speech, confusion, seizures, incoordination. PSYCHIATRIC: No concerning psychosocial issues. 12 point review of systems is negative except for those stated above Patient History Medical History BPH (benign prostatic hyperplasia) Coronary artery disease Dyslipidemia Hypertension Surgical History History of back surgery Hx of CABG Family History Mother Coronary artery disease Father Cancer Social History household members: spouse Smoking Status: Never smoker Smoking Status: Never smoker alcohol intake frequency: other Substance Use Type: does not use Exam Narrative Exam Narrative: GEN: AOx3 and in no obvious distress EYES: Pupils are equal, round, and reactive to light and accommodation. Extraoccular muscles are intact bilaterally. There is no subconjunctival hemorrhage or exudate. CHEST: Lungs are clear to auscultation bilaterally and free of wheezes, rales, or rhonchi. Heart rate is regular rhythm, there are no murmurs, clicks, rubs, or gallops. There is no chest wall tenderness. ABD: Abdomen is soft and nontender. There is no guarding or rebound. Bowel sounds are normal in all 4 quadrants. There is no mass or organomegaly. EXT: Full painless ROM of all extremities with no loss of sensation or strength. SKIN: Chin laceration is healing well, no dehiscence, redness or swelling, [address], appropriate for removal Course Course Course Narrative: Three sutures easily removed by nursing Medical Decision Making [facility] Narrative Medical decision making narrative: [72] year old patient presents with need for suture removal Multiple etiologies for patient's symptoms considered including, but not limited to: [Suture removal versus infectious process versus other] Prior Charts reviewed in our EMR Primary Historian: patient Three sutures easily removed. No signs of infection, redness, swelling, dehiscence. No further steps needed Return precautions discussed with patient/family whom verbalize understanding of diagnosis and plan Discharge Plan Departure Patient Disposition: Home Clinical Impression: Chin laceration Activity Restrictions/Additional Instructions: *You have been diagnosed with [suture removal] *Return to Emergency Department if you should have any new, worsening or concerning symptoms, such as [fever greater than 101 F, shaking chills, worsening pain, persistent vomiting or other bothersome symptoms] Prescriptions: No Action atorvastatin [Lipitor] 40 MG tablet 40 mg PO HS Qty: 30 tamsulosin [Flomax] 0.4 MG capsule,extended release 24hr 0.4 mg PO QDAY Qty: 0 latanoprost [Xalatan] 0.005 % drops 1 drp OU HS Qty: 2.5 coQ10 (ubiquinol) 100 MG capsule 100 mg PO BEDTIME Qty: 0 Eliquis 5 mg tablet 5 mg PO BID Patient Comments: Take 1 tablet by mouth twice a day 1 in am and o tab in pm Vitamin D2 5,000 PO DAILY sotalol 80 mg Tablet 80 mg PO BID acetaminophen [Tylenol] 325 mg Capsule 650 mg PO Q4H PRN (Reason: pain) Referrals: Abby Bocanegra PA-C [Primary Care Provider] - Stand Alone Forms: Patient Portal/API
[2022-10-19 10:13] VITALS: BP 151/83; PULSE 60; RESP 16; TEMP 36.9; O2SAT 98
== END 2022-10-19 10:19 | disposition home or self-care (01) ==
PROVIDERS: Emergency Provider Emergency Medicine; PCP Physician Assistant Medical
CPT/HCPCS: 99281

== ENCOUNTER 2023-09-26 10:20 | Emergency (ER) | payer MEDICARE, OTHER, SELFPAY ==
[2021-12-24 23:09] VITALS: BMI 26.9
[2023-09-26] VITALS (24 sets, daily range): BP systolic 124–171; BP diastolic 77–96; PULSE 64–67; RESP 14–34; TEMP 36.2; O2SAT 94–99; BMI 27.8
--- NOTE | 2023-09-26 10:28 | DI.RAD.S_ITS ---
PROCEDURE: XR CHEST 1V INDICATIONS: chest pain TECHNIQUE: One view of the chest was acquired. COMPARISON: [facility], CR, XR CHEST 1V, 12/28/2021, 7:58. [facility], CR, XR CHEST 1V, 07/17/2020, 11:39. FINDINGS: Surgical changes and devices: Sternotomy wires and mediastinal clips are present. Lungs and pleura: Mildly low lung volumes bilaterally. No focal consolidation. No pleural effusions or pneumothorax. Mediastinum: Mediastinal contours appear normal. Heart size is normal. Bones and chest wall: No suspicious bony lesions. Overlying soft tissues appear unremarkable. IMPRESSION: Mildly low lung volumes bilaterally. No acute cardiopulmonary abnormality is seen. Approved by: Antonio Eastman M.D. on 09/26/2023 at 11:18
--- NOTE | 2023-09-26 10:28 | EKG_ITS ---
[address] [address] Test Date: 2023-09-26 Pat Name: Ganesh Beal Department: Room: Gender: Male Clerk Entry Level: STEFFANY : 1950 Requested By: Order Number: [id number] Reading MD: Joe Mandujano MD Measurements Intervals [place] Rate: 66 P: 258 [place]: QRS: -28 QRSD: 66 T: -1 QT: 394 QTc: 413 Interpretive Statements Atrial flutter with 4:1 AV conduction Minimal voltage criteria for LVH, may be normal variant ( R in aVL ) Inferior infarct , age undetermined Electronically Signed On 09-26-2023 11:56:14 PDT by Joe Mandujano MD
[2023-09-26 10:45] LABS: Add Manual Diff / Slide Review NO; Basophils Absolute Auto 100 /uL (0-100); Basophils Percent Auto 0.8 % (0-2); Eosinophils Absolute Auto 100 /uL (0-450); Eosinophils Percent Auto 0.9 % (2-4); Hematocrit 50.6 % (41-53); Hemoglobin 17.2 g/dL (13.5-17.5); Lymphocytes Absolute Auto 2200 /uL (1100-4500); Mean Corpuscular Hemoglobin 31.9 PG (26-34); Monocytes Absolute Auto 600 /uL (0-900); Monocytes Percent Auto 8.7 % (3-14); Neutrophils Absolute Auto 3500 /uL (1500-7000); Neutrophils Percent Auto 54.6 % (50-75); Platelet Count 147 X10^3/uL (150-400); Red Blood Cell Count 5.39 X10^6/uL (4.5-5.9); Red Cell Distribution Width 13.1 % (11.6-14.8); White Blood Cell Count 6.4 X10^3/uL (4.5-11.0)
[2023-09-26 10:53] LABS: INR 1.3 (0.9-1.3); Prothrombin Time 14.5 SECONDS (9.4-12.5)
[2023-09-26 10:56] LABS: PTT Partial Thromboplastin Tim 39 SECONDS (25.1-36.5)
[2023-09-26 11:02] LABS: Alanine Aminotransferase 28 IU/L (<50); Albumin 4.5 g/dL (3.5-5.0); Albumin Globulin Ratio 1.9 (1.0-2.8); Alkaline Phosphatase 65 U/L (38-126); Aspartate Aminotransferase 35 IU/L (17-59); Bilirubin Total 1.1 mg/dL (0.2-1.3); Blood Urea Nitrogen 18 mg/dL (9-20); Calcium 9.1 mg/dL (8.4-10.2); Carbon Dioxide 29 mmol/L (22-32); Chloride 105 mmol/L (98-107); Creatine Kinase 103 U/L (55-170); Estimated Glomerular Filt Rate > 60 mL/min (>60); Globulin 2.4 g/dL (1.7-4.1); Glucose 113 mg/dL (80-110); HEMOLYSIS 32 (0-50); Lipase 79 U/L (23-300); Magnesium 2.2 mg/dL (1.6-2.3); Potassium 4.9 mmol/L (3.4-5.1); Sodium 138 mmol/L (137-145); Total Protein 6.9 g/dL (6.3-8.2)
[2023-09-26 11:13] LABS: Troponin I < 0.012 ng/mL (0.01-0.034)
--- NOTE | 2023-09-26 11:37 | PC.NURSE ---
pt was at cardiac therapy this morning when they noticed he was not in sinus rhythm. they advised him to come to the ED. he is not currently experiencing any cardiac symptoms
--- NOTE | 2023-09-26 12:07 | PC.NURSE ---
pt left the department to go to his car and get his phone, it was ok'd by charge nurse
--- NOTE | 2023-09-26 15:06 | PC.NURSE ---
pt asked if he could leave, this rn told him that it would be in his best interest that Dr. An see him first.
--- NOTE | 2023-09-26 15:44 | ED.ARRPALP ---
HPI - Arrhythmia/Palpitations General Chief Complaint: Arrhythmia/Palpitations Stated Complaint: heart issues Time Seen by Provider: 09/26/23 14:16 Source: patient Mode of arrival: Ambulatory History of Present Illness HPI narrative: 73-year-old male history of coronary artery disease with CABG with 3 vessels, cardiac stents and cardiac ablation approximately a year ago who was at cardiac rehab checked EKG and was in atrial flutter, has a history of Eliquis and takes Plavix. He states no new medication changes recently. States he was pushing himself. States he does take sotalol daily. Patient is also on Eliquis. Patient states he has no symptoms. He does not have any issues currently. He denies any chest pain or shortness of breath no dizziness no syncope. No swelling of extremities. No other GI or urinary symptoms. He states sometimes he can tell when he is in atrial flutter but has not been able to tell since he had his last cardiac ablation. He is unsure if he has paroxysmal versus chronic atrial flutter. He has been rate controlled it rehab as well as here. He follows with Dr. Beavers for Cardiology through [facility] in [place]. Related Data Home Medications Medication Instructions Recorded Confirmed atorvastatin 40 mg tablet (Lipitor) 40 mg PO HS #30 tabs 12/04/15 10/11/22 coQ10 (ubiquinol) 100 mg capsule 100 mg PO BEDTIME ##0 12/04/15 10/11/22 latanoprost 0.005 % eye drops 1 drp OU HS #2.5 mL 12/04/15 10/11/22 (Xalatan) tamsulosin 0.4 mg capsule (Flomax) 0.4 mg PO QDAY #0 caps 12/04/15 10/11/22 Vitamin D2 5,000 PO DAILY 01/29/22 apixaban 5 mg tablet (Eliquis) 5 mg PO BID 01/29/22 10/11/22 acetaminophen 325 mg capsule 650 mg PO Q4H PRN pain 10/11/22 10/11/22 (Tylenol) sotalol 80 mg tablet 80 mg PO BID 10/11/22 10/11/22 Allergies Allergy/AdvReac Type Severity Reaction Status Date / Time No Known Drug Allergies Allergy Verified 09/26/23 10:25 Review of Systems Review of Systems ROS Unobtainable: All systems reviewed & are unremarkable except as noted in HPI and below Patient History Medical History BPH (benign prostatic hyperplasia) Coronary artery disease Dyslipidemia Hypertension Surgical History History of back surgery Hx of CABG Family History Mother Coronary artery disease Father Cancer Social History household members: spouse Smoking Status: Never smoker Smoking Status: Never smoker alcohol intake frequency: other Substance Use Type: does not use Exam Narrative Exam Narrative: GENERAL: Alert and oriented x three, well-appearing male in mild distress. HEENT: Head normocephalic, atraumatic, EOMI, pupils reactive, face symmetric, moist mucous membranes NECK: Supple, full range of motion CARDIOVASCULAR: Regular rate and rhythm without murmurs, rubs or gallops. No JVD. No edema bilateral lower extremities. RESPIRATORY: Breath sounds equal bilaterally, no wheezes rales or rhonchi. ABDOMEN: Soft, nontender. Normoactive bowel sounds all 4 quadrants. No guarding or rebound, rigidity, no mass : No CVA tenderness EXTREMITIES: Normal range of motion, no clubbing or edema. Neurovascularly intact NEUROLOGICAL: Cranial nerves II through XII grossly intact. Moving all extremities SKIN: Warm, dry, no petechiae, no rashes or lesions. Initial Vital Signs Initial Vital Signs: Vital Signs Temperature 97.1 F L 09/26/23 10:25 Pulse Rate 67 09/26/23 10:25 Respiratory Rate 14 09/26/23 10:25 Blood Pressure 143/88 H 09/26/23 10:25 Pulse Oximetry 99 09/26/23 10:25 Oxygen Delivery Method Room Air 09/26/23 10:25 Course Orders Ordered: ED Orders 09/26/23 10:28 XR chest 1V Stat EKG-12 Lead Stat 09/26/23 10:35 Complete Blood Count AUTO DIFF Stat Comprehensive Metabolic Panel Stat Lipase Stat Magnesium Stat PTT Partial Thromboplastin Germán Stat Prothrombin Time INR Stat Troponin & CK Cardiac Panel Stat Vital Signs Vital signs: Vital Signs - 8 hr 09/26/23 11:30 09/26/23 11:35 09/26/23 11:35 Pulse Rate 66 66 Respiratory Rate 21 Blood Pressure 171/91 H Pulse Oximetry 98 09/26/23 11:53 09/26/23 11:53 09/26/23 12:00 Pulse Rate 66 65 Respiratory Rate 24 21 Blood Pressure 134/82 Pulse Oximetry 97 97 09/26/23 12:00 09/26/23 12:30 09/26/23 12:40 Pulse Rate 66 65 Respiratory Rate 16 20 Blood Pressure 138/88 Pulse Oximetry 97 97 09/26/23 12:40 09/26/23 12:41 09/26/23 12:41 Pulse Rate 66 Respiratory Rate 24 Blood Pressure 127/79 134/83 Pulse Oximetry 97 09/26/23 13:00 09/26/23 13:00 09/26/23 13:30 Pulse Rate 66 66 Respiratory Rate 21 19 Blood Pressure 130/79 Pulse Oximetry 95 94 09/26/23 13:30 09/26/23 14:00 09/26/23 14:01 Pulse Rate 67 Respiratory Rate 20 Blood Pressure 124/77 142/81 H Pulse Oximetry 97 09/26/23 14:01 09/26/23 14:22 09/26/23 14:22 Pulse Rate 67 66 Respiratory Rate 22 34 H Blood Pressure 128/86 Pulse Oximetry 96 97 09/26/23 14:30 09/26/23 14:30 09/26/23 15:00 Pulse Rate 66 66 Respiratory Rate 17 21 Blood Pressure 140/82 Pulse Oximetry 97 97 09/26/23 15:00 09/26/23 15:06 09/26/23 15:06 Pulse Rate 66 Respiratory Rate 20 Blood Pressure 152/91 H 155/93 H Pulse Oximetry 97 09/26/23 15:20 09/26/23 15:20 09/26/23 15:30 Pulse Rate 67 67 Respiratory Rate Blood Pressure 147/96 H Pulse Oximetry 97 97 09/26/23 15:32 09/26/23 15:32 09/26/23 15:33 Pulse Rate 66 66 Respiratory Rate Blood Pressure 136/87 Pulse Oximetry 97 98 09/26/23 15:33 09/26/23 16:00 09/26/23 16:00 Pulse Rate 67 Respiratory Rate 18 Blood Pressure 139/96 H 133/84 Pulse Oximetry 97 MDM - Arrhythmia/Palpitations Lab Data 09/26/23 10:35 09/26/23 10:35 Labs: Lab Results 09/26/23 Range/Units 10:35 WBC 6.4 (4.5-11.0) X10^3/uL RBC 5.39 (4.5-5.9) X10^6/uL Hgb 17.2 (13.5-17.5) g/dL Hct 50.6 (41-53) % MCV 94.0 (80-100) fL MCH 31.9 (26-34) PG MCHC 34.0 (30-36) % RDW 13.1 (11.6-14.8) % Plt Count 147 L (150-400) X10^3/uL Neut % (Auto) 54.6 (50-75) % Lymph % (Auto) 35.0 (25-40) % Lipscomb % (Auto) 8.7 (3-14) % Eos % (Auto) 0.9 L (2-4) % Baso % (Auto) 0.8 (0-2) % Neut # (Auto) 3500 (3000-0800) /uL Lymph # (Auto) 2200 (5408-9526) /uL Lipscomb # (Auto) 600 (0-900) /uL Eos # (Auto) 100 (0-450) /uL Baso # (Auto) 100 (0-100) /uL PT 14.5 H (9.4-12.5) SECONDS INR 1.3 (0.9-1.3) APTT 39 H (25.1-36.5) SECONDS Sodium 138 (137-145) mmol/L Potassium 4.9 (3.4-5.1) mmol/L Chloride 105 (98-107) mmol/L Carbon Dioxide 29 (22-32) mmol/L BUN 18 (9-20) mg/dL Creatinine 1.00 (0.66-1.25) mg/dL Estimated GFR > 60 (>60) mL/min BUN/Creatinine Ratio 18.0 (6-22) Glucose 113 H (80-110) mg/dL Calcium 9.1 (8.4-10.2) mg/dL Magnesium 2.2 (1.6-2.3) mg/dL Total Bilirubin 1.1 (0.2-1.3) mg/dL AST 35 (17-59) IU/L ALT 28 (<50) IU/L Alkaline Phosphatase 65 (38-126) U/L Total Creatine Kinase 103 (55-170) U/L Troponin I < 0.012 (0.01-0.034) ng/mL Total Protein 6.9 (6.3-8.2) g/dL Albumin 4.5 (3.5-5.0) g/dL Globulin 2.4 (1.7-4.1) g/dL Albumin/Globulin Ratio 1.9 (1.0-2.8) Lipase 79 (23-300) U/L Imaging Data Chest x-ray: Radiologist's Impresson: Close Chest X-Ray (Signed) Antonio Eastman - 09/26/[address] (Signed) Call,Hadley - 10/12/[address] (Signed) Call,Hadley - 10/12/[address] (Signed) Call,Hadley - 10/12/22 Ankle MRI (Signed) Ramon Lowry - 01/25/22 Chest X-Ray (Signed) Call,Hadley - 12/28/21 Echocardiogram Ultrasound (Signed) Barber Newman - 12/26/21 Chest X-Ray (Signed) Rose Parsons - 12/26/21 Vascular Ultrasound (Signed) Kayden Bell - 12/24/21 Telemetry Strips 12/24/21 Ankle X-Ray (Signed) Antonio Eastman - 12/24/21 Chest X-Ray (Signed) Hakeem Pearl - 07/17/[address] (Signed) Asael Clemons - 01/16/19 Launch?Image [address] [address] XRay Report Signed Patient: Ganesh Beal MR#: [id number] : 1950 Acct:[id number] Age/Sex: 73 / M Date of Service: 09/26/23 Loc: ED Accession Number: [id number] Procedure: XR chest 1V Ordering Provider: Callie An D.O. PROCEDURE: XR CHEST 1V INDICATIONS: chest pain TECHNIQUE: One view of the chest was acquired. COMPARISON: [facility], CR, XR CHEST 1V, 12/28/2021, 7:58. [facility], CR, XR CHEST 1V, 07/17/2020, 11:39. FINDINGS: Surgical changes and devices: Sternotomy wires and mediastinal clips are present. Lungs and pleura: Mildly low lung volumes bilaterally. No focal consolidation. No pleural effusions or pneumothorax. Mediastinum: Mediastinal contours appear normal. Heart size is normal. Bones and chest wall: No suspicious bony lesions. Overlying soft tissues appear unremarkable. IMPRESSION: Mildly low lung volumes bilaterally. No acute cardiopulmonary abnormality is seen. Approved by: Antonio Eastman M.D. on 09/26/2023 at 11:18 ECG Data Attestation: I personally reviewed and interpreted this ECG as follows: Interpretation: Atrial flutter 3-1 ratio rate of 66 QRS is 66 QTC of 413. No acute ST elevation depression appreciated. MDM Narrative Medical decision making narrative: 73-year-old male with history of coronary artery disease, cardiac arrhythmias known history of atrial flutter. Patient was at cardiac rehab today had an EKG which showed atrial flutter. Patient has been asymptomatic. He is unsure when this episode started. He is anticoagulated with Eliquis. He states he has been taking it regularly. CBC shows platelets of 147 otherwise appropriate white count and hemoglobin. INR is 1.3 sodium is 138 potassium is 4.9 chloride 105 CO2 of 29 BUN 18 creatinine of 1, glucose is 113 magnesium 2.2 calcium is 9.1, troponins less than 0.012. Chest x-ray shows mild low lung volumes bilaterally. [facility] [place] [facility] [facility] States no need for cardioversion at this time. Patient to continue his home medications and follow up as needed. Discharge Plan Departure Patient Disposition: Home Clinical Impression: Atrial flutter Instructions: DI for Atrial Flutter Activity Restrictions/Additional Instructions: You appear to be in atrial flutter today but rate controlled. I spoke with the cardiology team, spoke with Dr. Dave who does not wish for us to cardiovert you today. He does ask that you continue your regular medications. Please follow up with your physician or Cardiology for recheck. Continue your home medications as prescribed. If you have new chest pain, shortness of breath, lightheadedness or passing out, if you notice that your heart rate is fast or irregular, if you are having new swelling of your extremities or other new or concerning changes please return. Prescriptions: No Action atorvastatin [Lipitor] 40 MG tablet 40 mg PO HS Qty: 30 tamsulosin [Flomax] 0.4 MG capsule,extended release 24hr 0.4 mg PO QDAY Qty: 0 latanoprost [Xalatan] 0.005 % drops 1 drp OU HS Qty: 2.5 coQ10 (ubiquinol) 100 MG capsule 100 mg PO BEDTIME Qty: 0 Eliquis 5 mg tablet 5 mg PO BID Patient Comments: Take 1 tablet by mouth twice a day 1 in am and o tab in pm Vitamin D2 5,000 PO DAILY sotalol 80 mg Tablet 80 mg PO BID acetaminophen [Tylenol] 325 mg Capsule 650 mg PO Q4H PRN (Reason: pain) Referrals: Sylvester Beavers MD [Non-Staff] - Abby Bocanegra PA-C [Primary Care Provider] - Stand Alone Forms: Patient Portal/API
== END 2023-09-26 16:09 | disposition home or self-care (01) ==
PROVIDERS: Emergency Provider Emergency Medicine; PCP Physician Assistant Medical
DX: I48.92 Unspecified atrial flutter (principal); Z95.5 Presence of coronary angioplasty implant and graft; Z79.01 Long term (current) use of anticoagulants; Z79.899 Other long term (current) drug therapy
CPT/HCPCS: 36415; 71045; 80053; 82550; 83690; 83735; 84484; 85025; 85610; 85730; 93005; 93010; 99283; 99284

== ENCOUNTER 2023-12-25 10:15 | Outpatient (RCR) | payer MEDICARE, OTHER, SELFPAY ==
[2021-12-24 23:09] VITALS: BMI 26.9
== END 2023-12-25 12:15 ==
LOC: CAR 10:15
PROVIDERS: PCP Physician Assistant Medical; Referring Provider Internal Medicine Cardiovascular Disease; Visit Provider Internal Medicine Cardiovascular Disease
DX: I25.118 Atherosclerotic heart disease of native coronary artery with other forms of angina pectoris (principal); Z95.5 Presence of coronary angioplasty implant and graft
CPT/HCPCS: 93798